=== PATIENT | female | born 1940 | race Hispanic/Latino ===

== ENCOUNTER 2017-04-10 13:15 | Inpatient (IN) | payer MEDICARE, BC ==
[2017-04-10 13:45] VITALS: BMI 42.0
--- NOTE | 2017-04-10 15:27 | ED PDOC ---
Arrival/HPI - General Chief Complaint: Abnormal Skin Integrity Time Seen by Provider: 04/10/17 14:35 Historian: Patient - History of Present Illness Narrative History of Present Illness (Text): 04/10/17 15:23 76yo female with PMHx of Diabetes and hypertension referred to ED for left lower leg infection/non healing wound x 2weeks. States she saw her PMD on Thursday and was given antibiotics for the infection. She has been on the antibiotics without relieve. She was told by Dr. Littlejohn to come to the ED. She states the wound is worse today. She denies fever, chills, chest pain SOB, diaphoresis, calf pain, any other complaint. She notes 2negative doppler US. The last one with end of last year. Past Medical History - Provider Review Nursing Documentation Reviewed: Yes - Tetanus Immunization Tetanus Immunization: Unknown - Reproductive Menopause: Yes - Cardiac Hx Congestive Heart Failure: (pt denies) Hx Hypertension: Yes - Neurological Hx Neurological Disorder: (bilateral foot neuropathy) - HEENT Hx HEENT Disorder: (L Retinopathy) - Renal Hx Renal Disorder: (renal insuficiency) - Endocrine/Metabolic Hx Diabetes Mellitus Type 2: Yes - Integumentary Other/Comment: dry skin and slight redness ble - Musculoskeletal/Rheumatological Hx Falls: No Hx Unsteady Gait: Yes (uses a rollator) - Gastrointestinal Hx Gastrointestinal Disorders: (obese) Other/Comment: vomits late in the day at times - Genitourinary/Gynecological Hx Incontinence: Yes (urgency) - Psychiatric Hx Depression: No Hx Emotional Abuse: No Hx Physical Abuse: No Hx Substance Use: No - Past Surgical History Past Surgical History: No Previous - Surgical History Hx Musculoskeletal Surgery: Yes (R breast lumpectomy [facility]) - Anesthesia Hx Anesthesia: Yes Hx Anesthesia Reactions: No Hx Malignant Hyperthermia: No - Suicidal Assessment Feels Threatened In Home Enviroment: No Family/Social History - Physician Review Nursing Documentation Reviewed: Yes Family/Social History: Unknown Family HX Smoking Status: Never Smoked Hx Alcohol Use: No Hx Substance Use: No Allergies/Home Meds Allergies/Adverse Reactions: Allergies clindamycin Allergy (Verified 04/10/17 13:44) RASH Penicillins Allergy (Verified 04/10/17 13:44) ANAPHYLAXIS Home Medications: Home Meds Medication Instructions Recorded Confirmed Amitriptyline HCl 25 mg PO HS 04/10/17 04/10/17 Calcium Citrate/Magnesium/D3 1 tab PO BID 04/10/17 04/10/17 [Calcium Citrate Chewable Wafer] Carvedilol [Coreg CR] 40 mg PO DAILY 04/10/17 04/10/17 Doxazosin Mesylate [Doxazosin 2 mg PO HS 04/10/17 04/10/17 Mesylate] Febuxostat [Uloric] 40 mg PO DAILY 04/10/17 04/10/17 Gabapentin [Neurontin] 300 mg PO HS 04/10/17 04/10/17 Linagliptin [Tradjenta] 5 mg PO DAILY 04/10/17 04/10/17 Metformin ER [Glucophage XR] 750 mg PO DAILY 04/10/17 04/10/17 Multivitamin Therapeutic Tab 1 tab PO BID 04/10/17 04/10/17 [Thera Tab] Tramadol HCl/Acetaminophen 37.5 tab PO BID 04/10/17 04/10/17 [Tramadol-Acetaminophn 37.5-325] Valsartan [Diovan] 320 mg PO DAILY 04/10/17 04/10/17 Review of Systems - Physician Review All systems were reviewed & negative as marked: Yes - Review of Systems Constitutional: Normal Eyes: Normal ENT: Normal Respiratory: Normal Cardiovascular: Normal Gastrointestinal: Normal Genitourinary Female: Normal Musculoskeletal: Normal Skin: Cellulitis (Left lower leg) Neurological: Normal Endocrine: Normal Hemo/Lymphatic: Normal Psychiatric: Normal Physical Exam Vital Signs Reviewed: Yes Vital Signs Temp Pulse Resp BP Pulse Ox 04/10/17 19:00 77 18 140/59 L 96 04/10/17 17:05 71 18 143/61 95 04/10/17 13:47 98.3 F 86 18 145/59 L 96 Temperature: Afebrile Blood Pressure: Normal Pulse: Regular Respiratory Rate: Normal Appearance: Positive for: Well-Appearing, Non-Toxic, Comfortable, Other ( Morbidly obese) Pain Distress: None Mental Status: Positive for: Alert and Oriented X 3 - Systems Exam Head: Present: Atraumatic, Normocephalic Pupils: Present: PERRL Extroacular Muscles: Present: EOMI Conjunctiva: Present: Normal Mouth: Present: Moist Mucous Membranes Neck: Present: Normal Range of Motion Respiratory/Chest: Present: Clear to Auscultation, Good Air Exchange. No: Respiratory Distress, Accessory Muscle Use Cardiovascular: Present: Regular Rate and Rhythm, Normal S1, S2. No: Murmurs Abdomen: Present: Normal Bowel Sounds. No: Tenderness, Distention, Peritoneal Signs Back: Present: Normal Inspection Upper Extremity: Present: Normal Inspection. No: Cyanosis, Edema Lower Extremity: Present: Edema (4+ bipedal edema), Normal ROM, Tenderness ( Left lower leg), Erythema (Left lower leg), Temperature Abnormalties (Left lower leg), Other (Circular wound noted with central area of hypopigmentation and surrounding erythema). No: CALF TENDERNESS, NORMAL PULSES (DEcrease Left lower leg) Neurological: Present: GCS=15, CN II-XII Intact, Speech Normal Skin: Present: Warm, Dry, Normal Color. No: Rashes Psychiatric: Present: Alert, Oriented x 3, Normal Insight, Normal Concentration Medical Decision Making ED Course and Treatment: 04/10/17 16:05 Pt in ED for stated history. she have history of hypertension and diabetes. She failed outpt abx and will be admitted for IV abx. EKG NSR with RBBB @65bpm CXR NAD Case was DW Dr. Littlejohn who referred pt to the ED and pt was admitted. He requested Fransico Romero and Genoveva consult. Labs pending. Vanco will be ordered. - Lab Interpretations Lab Results: 04/10/17 15:08 04/10/17 15:08 Lab Results 04/10/17 15:08: PT 12.7 H, INR 1.11 H, APTT 30.6 04/10/17 15:08: Sodium 138, Potassium 4.4, Chloride 105, Carbon Dioxide 23, Anion Gap 15, BUN 49 H, Creatinine 2.2 H, Est GFR ( Amer) 26, Est GFR ( Non-Af Amer) 22, Random Glucose 138 H, Calcium 9.3, Total Bilirubin 0.7, AST 20 , ALT 30, Alkaline Phosphatase 85, Total Protein 6.4, Albumin 3.7, Globulin 2.7 , Albumin/Globulin Ratio 1.4 04/10/17 15:08: WBC 10.6, RBC 3.27 L, Hgb 10.1 L, Hct 30.5 L, MCV 93.3, MCH 30.9 , MCHC 33.1, RDW 13.5, Plt Count 216, MPV 9.6, Gran % 84.3 H, Lymph % (Auto) 7.7 L, Mcdonough % (Auto) 5.2, Eos % (Auto) 2.7, Baso % (Auto) 0.1, Gran # 8.94 H, Lymph # 0.8 L, Mcdonough # 0.6, Eos # 0.3, Baso # 0.01 - Medication Orders Current Medication Orders: Amitriptyline HCl (Elavil) 25 mg PO HS [facility] Last Admin: 04/10/17 23:47 Dose: 25 mg Doxazosin Mesylate (Cardura) 2 mg PO HS [facility] Last Admin: 04/10/17 23:47 Dose: 2 mg Gabapentin (Neurontin) 300 mg PO HS [facility] PRN Reason: Protocol Last Admin: 04/10/17 23:47 Dose: 300 mg Behavioural Document 04/10/17 23:47 [facility] (Rec: 04/10/17 23:47 [id number]) Maintenance Maintenance Dose Yes Re-Assess: Reassess Psych Meds Document 04/11/17 00:47 [facility] (Rec: 04/11/17 00:59 [id number]) Reassess Psych Med Effective Linezolid (Zyvox 600mg/300ml D5w) 600 mg in 300 mls @ 200 mls/hr IVPB Q12 NONI PRN Reason: Protocol Stop: 04/17/17 22:01 Last Admin: 04/10/17 23:50 Dose: 200 mls/hr eMAR Start Stop Document 04/10/17 23:50 [facility] (Rec: 04/10/17 23:51 [id number]) Intravenous Solution Start Date 04/10/17 Start Time 23:50 End Date 04/11/17 End time 01:20 Total Infusion Time 90 Insulin Human Regular (Humulin R Low) 0 units SC ACHS NONI PRN Reason: Protocol Metformin HCl (Glucophage Xr) 750 mg PO DAILY [facility] Multivitamins (Thera Tab) 1 tab PO BID [facility] Non-Formulary Medication (Calcium Citrate/Magnesium/D3 [Calcium Citrate Chewable Wafer]) 1 tab PO BID NONI Non-Formulary Medication (Carvedilol [Coreg Cr]) 40 mg PO DAILY NONI Non-Formulary Medication (Febuxostat [Uloric]) 40 mg PO DAILY [facility] Tramadol/Acetaminophen (Ultracet 37.5/325 Mg) 37.5 tab PO BID NONI Valsartan (Diovan) 320 mg PO DAILY NONI Discontinued Medications Vancomycin HCl (Vancomycin 1gm) 1 gm in 250 mls @ 167 mls/hr IVPB STAT STA PRN Reason: Protocol Stop: 04/10/17 17:36 Last Admin: 04/10/17 16:39 Dose: 167 mls/hr eMAR Start Stop Document 04/10/17 16:39 RG (Rec: 04/10/17 16:39 [id number]) Intravenous Solution Start Date 04/10/17 Start Time 16:39 Disposition/Present on Arrival - Present on Arrival Any Indicators Present on Arrival: No History of DVT/PE: No History of Uncontrolled Diabetes: Yes Urinary Catheter: Yes (inserted in er) History of Decub. Ulcer: Yes History Surgical Site Infection Following: None - Disposition Have Diagnosis and Disposition been Completed?: Yes Diagnosis: Cellulitis of leg Disposition: HOSPITALIZED Disposition Time: 15:30 Patient Problems: Current Active Problems Problem Status Onset Cellulitis of leg Acute Condition: FAIR
[2017-04-10 15:35] LABS: BASO # 0.01 K/mm3 (0.0-2.0); BASO % 0.1 % (0.0-3.0); EOS # 0.3 (0.0-0.7); EOS % 2.7 % (1.5-5.0); GRAN # 8.94 (1.4-6.5); GRAN % 84.3 % (50.0-68.0); HEMOGLOBIN 10.1 g/dL (12.0-16.0); LYMPH # 0.8 (1.2-3.4); LYMPH % 7.7 % (22.0-35.0); MEAN CELL VOLUME 93.3 fl (80.0-105.0); MEAN CORPUSCULAR HEMOGLOBIN 30.9 pg (25.0-35.0); MEAN CORPUSCULAR HGB CONC 33.1 g/dl (31.0-37.0); MEAN PLATELET VOLUME 9.6 fl (7.0-11.0); MONO # 0.6 (0.1-0.6); MONO % 5.2 % (1.0-6.0); RBC 3.27 10^6/uL (3.5-6.1); RED CELL DISTRIBUTION WIDTH 13.5 % (11.5-14.5); WHITE BLOOD COUNT 10.6 10^3/ul (4.5-11.0)
[2017-04-10 15:46] LABS: ALB/GLOB RATIO 1.4 (1.1-1.8); ALBUMIN 3.7 g/dL (3.0-4.8); CALCIUM 9.3 mg/dL (8.4-10.5)
[2017-04-10 15:47] LABS: INR 1.11 (0.93-1.08); PARTIAL THROMBOPLASTIN TIME 30.6 Seconds (25.1-36.5); PROTHROMBIN TIME 12.7 SECONDS (9.4-12.5)
[2017-04-10] MEDS ORDERED: Vancomycin 1gm in NS 250ml 1 GM/250 ML BAG IVPB STA (16:07)
--- NOTE | 2017-04-10 17:41 | RAD ---
HISTORY: Admission COMPARISON: 05/25/2014 FINDINGS: LUNGS: No active pulmonary disease. PLEURA: No significant pleural effusion identified, no pneumothorax apparent. CARDIOVASCULAR: No radiographic findings to suggest acute or significant cardiovascular disease. OSSEOUS STRUCTURES: No significant abnormalities. VISUALIZED UPPER ABDOMEN: Normal. OTHER FINDINGS: None. IMPRESSION: No active disease. No significant interval change compared to the prior examination(s).
--- NOTE | 2017-04-10 19:55 | CARD ---
APPROVED REPORT EKG Measurement Heart [id number] <Conclusion> Normal sinus rhythm Right bundle branch block Inferior infarct, age undetermined T wave abnormality, consider lateral ischemia Abnormal ECG
[2017-04-10] MEDS: Linezolid 600 mg in D5W 300 ml 600 MG/300 ML BAG IVPB SCH (23:50)
[2017-04-11 07:33] LABS: MEAN CELL VOLUME 92.6 fl (80.0-105.0); MEAN CORPUSCULAR HEMOGLOBIN 30.3 pg (25.0-35.0); MEAN CORPUSCULAR HGB CONC 32.7 g/dl (31.0-37.0); MEAN PLATELET VOLUME 9.5 fl (7.0-11.0); RBC 2.97 10^6/uL (3.5-6.1); RED CELL DISTRIBUTION WIDTH 13.5 % (11.5-14.5); WHITE BLOOD COUNT 7.1 10^3/ul (4.5-11.0)
[2017-04-11 07:41] LABS: ALB/GLOB RATIO 1.3 (1.1-1.8); ALBUMIN 2.9 g/dL (3.0-4.8)
[2017-04-11] MEDS: Insulin Reg-LOW-Coverage SC SCH ×4 (08:00→22:06)
[2017-04-11 09:06] LABS: IRON 21 ug/dL (45-180)
[2017-04-11 09:16] LABS: TOTAL IRON BINDING CAPACITY 218 ug/dL (265-497)
[2017-04-11 09:21] LABS: % IRON SATURATION 10 % (20-55)
[2017-04-11 09:24] LABS: T4 5.4 ug/dL (5.5-11.0)
[2017-04-11] MEDS ORDERED: Non Formulary Medication (Febuxostat [Uloric] 40 MG) PO SCH ×2 (10:00→17:13)
[2017-04-11] MEDS ORDERED: Non Formulary Medication (Carvedilol [Coreg Cr] 40 MG) PO SCH ×2 (10:00→17:11)
[2017-04-11] MEDS ORDERED: TraMADol/Apap 37.5/325 mg Tab PO SCH (10:00)
[2017-04-11] MEDS: Multivitamin Therapeutic Tab PO SCH (10:02)
[2017-04-11] MEDS: Linezolid 600 mg in D5W 300 ml 600 MG/300 ML BAG IVPB SCH ×2 (10:02→22:11)
--- NOTE | 2017-04-11 11:27 | HP ---
LOCATION: The patient is currently admitted from the ER, she is in room 570. HISTORY OF PRESENT ILLNESS: This is a 76-year-old female with past medical history of diabetes and hypertension, who was seen by us a few days ago for followup, followed in the office as a second visit for evaluation of anemia and monoclonal gammopathy, and was referred to the emergency room for left lower leg infection that has been nonhealing for 2 weeks despite getting oral antibiotics prescribed by her PMD. The patient has been on antibiotics without much relief and then she came to see us. We that she should go to the ER as it may need to be investigated and patient may need IV antibiotics and investigation for even osteomyelitis as the wound could extend into the bone. Patient states that wound is worse today. Denies any fevers, chills, chest pain, shortness of breath, diaphoresis, calf pain. Patient has had 2 negative ultrasounds and Doppler in the doctor's office in the last year. PAST MEDICAL HISTORY: Significant for hypertension. Patient has had worsening bilateral foot neuropathy. She has retinopathy. Patient has mild renal insufficiency, followed up with Dr. Bateman, history of diabetes mellitus. Patient's gait is unsteady, uses a rollator in ambulation. Patient is obese. She vomits late in the day at least 3 to 4 times a day. She has urgency and urinary incontinence. Patient had a right breast lumpectomy in the past for benign disease. SOCIAL HISTORY: Patient is a nonsmoker, nondrinker. She is a nonalcoholic, and no history of substance abuse. ALLERGIES: SHE HAS ALLERGIES TO CLINDAMYCIN AND PENICILLIN, THUS SHE HAS HAD THE UNASYN. CURRENT MEDICATIONS: Reviewed. She is on Tekturna/hydrochlorothiazide 100/12.5 mg one tablet daily, amlodipine 10 mg daily, aspirin 81 mg at bedtime, carvedilol mg daily, doxazosin 4 mg at bedtime, insulin aspart NovoLog Mix 70/30 of 20 units subcu daily twice a day, Simcor 500/20 one tablet at bedtime, Xanax 0.25 mg p.o. p.r.n., Zyrtec 10 mg p.o. p.r.n. She is on vitamin D2 at 50,000 units once a week. She is on Victoza for diabetes, which she is currently not taking. She is on Centrum Silver, omega fish oil, valsartan 80 mg a day. REVIEW OF SYSTEMS: All 12-system review was done. All of them were negative except for what is mentioned in the HPI. PHYSICAL EXAMINATION: VITAL SIGNS: Stable. T-max is 98.3, pulse is 86, respirations 18, blood pressure is 145/59, pulse ox is 96%. HEENT: Head is normocephalic and atraumatic. Conjunctivae pale. Sclerae is anicteric. Pupils are equally reactive to light and accommodation. Examination of the oropharynx, there is no oropharyngeal lesions. Tongue is moist. No ulcerations are noted. No evidence of any thrush or any other fungal infection noted. NECK: Supple. There is no adenopathy. Range of motion is normal. There is no jugular venous distention. LUNGS: Clear to percussion and auscultation. Good air exchange. The patient is not in any respiratory distress or use of accessory muscles is noted. CARDIOVASCULAR: Reveals PMI to be in the fifth intercostal space inside the midclavicular line. S1 and S2 are normal. No gallop or murmur is heard. BACK: Examination of the back reveals it to be normal on inspection. EXTREMITIES: Upper and lower extremities; reveal no cyanosis, clubbing or edema in the upper extremity. Examination of the lower extremities reveals 4+ bipedal edema, normal range of motion. There is tenderness in the left lower leg with erythema. Temperature left lower leg with wound noted with of hyperpigmentation, surrounding erythema measuring about 2.5 cm. No calf tenderness is noted. Normal pulses with decreased pulse on the left leg. Calf muscles did not reveal any signs of soreness or tenderness. NEUROLOGIC: Reveals higher functions to be normal. No focal deficits are noted. SKIN: Skin turgor is decreased. No skin lesions are noted except for the ulceration seen in the left lower extremity. PSYCHIATRIC: Patient's affect is normal, and patient is alert and oriented x3. LABORATORY DATA: Patient's labs were reviewed. White count is 10.5, hemoglobin 10.1, hematocrit 30.5, platelet count of 216,000. Sodium is 138, K is 4.4, chloride is 104, CO2 is 23. BUN is 49, creatinine is 2.2. Blood sugar is 133. ASSESSMENT, NOTES AND PLAN: A 76-year-old female with diabetes, monoclonal gammopathy, anemia in the past, being worked up, is admitted to the hospital with progressive worsening and nonhealing left lower extremity ulcer in combination with diabetes; one has to worry if that is as well. Patient has failed out p.o. antibiotics and will need IV antibiotics. In addition to this, patient would have to be checked up for both arterial and venous insufficiency as to what the causation of the ulcer is, and patient may need ankle-brachial index as well. Patient is going to be seen in consultation with Dr. Bateman, the rn building, by Dr. Tomas, the solderer assembly repair, and Dr. Yoon and Dr. Pope from the Infections Disease point of view. Patient will need a triphasic bone scan, and/or an MRI symptoms resolve in a more meaningful way. Plan, as discussed, we are going to wait for the inputs from all the consultants. In the meantime, patient has been started on IV antibiotics. As per Infectious Disease, patient is going to be treated with IV Zyvox for they are waiting for other tests to come thorough. Patient will receive one dose of vancomycin in the emergency room of 1 g. Continue to monitor the labs and ordering a bone scan as well and arterial studies as well. This is a medically necessary and appropriate visit for this patient with multiple comorbid medical issues. Sumanth Littlejohn MD
[2017-04-11 12:09] LABS: FERRITIN 90.4 ng/mL
--- NOTE | 2017-04-11 12:13 | CON ---
DATE: 04/11/2017 The patient [address] for Dr. Clovis Watters FAMILY PHYSICIAN: Vania Kang MD REFERRING PHYSICIAN: Clovis Watters MD DATE OF ADMISSION TO THE HOSPITAL: 04/10/2017. DATE OF CONSULTATION: 04/11/2017. REASON FOR CONSULTATION: Evaluation of the patient unknown to me, but known to Dr. Bateman from office followup who presents with an elevated BUN and creatinine in the setting of cellulitis of her lower extremity and the setting of chronic lymphedema. HISTORY OF PRESENT ILLNESS: The patient is a pleasant 76-year-old white female with a long history of diabetes mellitus and hypertension, history of lower extremity lymphedema who uses diuretics on and off, none recently. History of possible diabetic neuropathy and retinopathy. The patient states that her baseline creatinine recently has been in the 1.7 range. The patient does have mild proteinuria, so quite possibly she has underlying diabetic nephropathy. The patient has a history of anemia, followed by Dr. Littlejohn. Echocardiograms done in 2014 showed an ejection fraction in the 55% range with LVH and mild valvular heart disease, MR/TR/AI. The patient was seen in the outpatient setting for evaluation of increasing redness and warmth of her lower extremity. She does have a small wound over her left leg area. The patient was felt to have cellulitis, she was treated with oral antibiotic therapy and she had no improvement. She was sent to the hospital for IV antibiotic therapy. She was noted to have a BUN of 49 on admission with a creatinine of 2.2. These are slightly above her recent outpatient levels. The patient states that when Dr. Bateman does her blood work in the office, her creatinine is in the 1.7 to 1.8 range. Of note, the patient remains on metformin. We are asked to evaluate the patient for the elevated BUN and creatinine above her baseline levels. 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 MEDICATIONS AT HOME: Include that of Diovan, tramadol with Tylenol, multivitamins, metformin, Tradjenta, Neurontin, Uloric, Cardura, Coreg, calcium citrate, and amitriptyline. ALLERGIES: THE PATIENT IS ALLERGIC TO CLINDAMYCIN AND PENICILLIN. CURRENT MEDICATIONS: In hospital include that of Cardura, Coreg, Diovan, Elavil, Uloric, metformin, multivitamins with calcium, sliding scale insulin, Neurontin, Ultracet, and Zyvox. SOCIAL HISTORY: No history of cigarette smoking. No history of alcohol use. FAMILY HISTORY: Mother at the age of 93 from old age. Father at the age of 76 from heart disease. There is a family history of hypertension. No family history of diabetes. REVIEW OF SYSTEMS: GENERAL: The patient states appetite and weight have been stable. ENT: Denies any hearing or visual problems with the exception of diabetic retinopathy. PULMONARY: No shortness of breath. No COPD. No asthma, bronchitis or emphysema. CARDIAC: No history of known coronary artery disease. GASTROINTESTINAL: No nausea, vomiting, diarrhea, constipation or abdominal pain. GENITOURINARY: History of chronic kidney disease stage II with a baseline creatinine of 1.7. No history of urinary tract infection. GYNECOLOGIC: Postmenopausal. ENDOCRINE: History of diabetes with complications. MUSCULOSKELETAL: No issues other than mild low back pain. NEUROLOGIC: No past history of CVA, TIA, seizures or syncope. HEME: Positive history of anemia followed by Hematology/Oncology. PSYCHOLOGIC: Psychiatric history is negative. PHYSICAL EXAMINATION: GENERAL: The patient is currently seen on . She is entirely comfortable lying supine in bed and IV antibiotics are infusing. VITAL SIGNS: Blood pressure of 140/59, temperature of 98.3, and respiratory rate of 18 with a pulse of 77. HEENT: Exam shows her be normocephalic and atraumatic. Conjunctivae are pale. Sclera are nonicteric. Pupils are equal, round and reactive to light and accommodation. Extraocular muscles are intact. Posterior pharynx is normal. NECK: Supple. No neck vein distention and no thyromegaly. No lymphadenopathy. No bruits. CHEST: Clear to auscultation and percussion. No rales and no rhonchi or wheezing. CARDIOVASCULAR: Shows a regular rate and rhythm with no audible murmurs. No S3, no S4 and no rub. History of MR/TR/AI. GASTROINTESTINAL: Abdomen is soft. Bowel sounds are normal. No rebound and no guarding or masses. BACK: No CVAT. No spinal tenderness. EXTREMITIES: Show chronic lymphedema of her lower extremities with increased warmth and erythema. She has a wound over her left lateral thigh area. No ulceration. Diminished lower extremity pulses secondary to edema. No cyanosis or clubbing. NEUROLOGIC: Shows her to be alert and oriented x3 with no gross focal motor or sensory deficits noted. LABORATORY DATA AND IMAGING STUDIES: Admitting chest x-ray: No acute pulmonary disease. Admitting EKG showed a right bundle-branch block with a normal sinus rhythm. Ultrasound done in 2014 showed normal kidneys. Labs: CBC; white blood cell count is 7.1, hemoglobin down to 9.0, and platelet count is 203,000. Chemistries: Normal electrolytes. BUN of 49 down to 41 today. Creatinine is 2.2 down to 2.1. These values are within her baseline range dating back to 2014, but the patient states that in the office she has had creatinines as low as 1.7. Glucose is 126. Calcium is 9.0. Liver enzymes are normal. Urinalysis is pending. Last urine from 2014 showed proteinuria. She did have a 24 hour urine done in 2011 which showed a creatinine clearance of 40 mL per minute and 374 mg of protein in the urine. Microbiology; no reports as of yet. ASSESSMENT: 1. Acute renal failure superimposed on chronic kidney disease stage III, suspect. This is quite possibly in the setting of diabetic nephropathy given a long history of diabetes and hypertension. The patient apparently has mild proteinuria, likely secondary to diabetes. The patient states that she very infrequently uses diuretic therapy because of her elevated BUN and creatinine. She had present and does not want to start diuretic therapy as she states that the amount of edema in her lower extremity is consistent what she has had over the last several years. Renal ultrasounds were done several years ago. If her BUN and creatinine stay in this range, I did not need to repeat these. I will, however, obtain a 24 urine for creatinine clearance and protein to reestablish a baseline for her. 2. Lower extremity cellulitis, bilateral. The patient will continue on intravenous antibiotic therapy, as she did not respond to oral antibiotic therapy. 3. Chronic lower extremity lymphedema. The patient will elevate her legs. She has successfully use compression stockings in the past. She would rather not use diuretic therapy as in the past, this has increased her BUN and creatinine. 4. History of anemia in the past, the patient was iron deficient. I will repeat her iron levels, B12, folate. The patient will receive supplements accordingly. In all likelihood, she has anemia secondary to chronic kidney disease with perhaps a mild contribution from iron deficiency. 5. Possible history of diabetic nephropathy, neuropathy and retinopathy. 6. 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 PLAN: 1. In light of her elevated creatinine, I will discontinue metformin, I discussed this with the patient. She remains on sliding scale insulin, so she should have her sugars covered. 2. As long as her creatinine remains stable, let her continue angiotensin receptor crissy therapy. 3. Obtain 24 years for creatinine clearance and protein. 4. At present, we will try and hold diuretic therapy for edema of her lower extremity, increases no choice but to resume diuretic therapy which she has used on an as-needed basis over the years. 5. Anemia workup sent. 6. Leg elevation and perhaps leg compression with support stockings once the cellulitis, erythema and warmth improved. 7. Monitor accurate Intake and output and daily weights. 8. Monitor daily labs. Thank you for letting me partake and share in the care of your patient. Dictation by Dr. Jair Williamson. Jair Williamson MD
[2017-04-11 12:40] LABS: FOLATE > 20.0 ng/mL
[2017-04-11] MEDS: MAGNESIUM PO SCH ×2 (13:31→18:20)
[2017-04-11] MEDS: CALCIUM CITRATE PO SCH ×2 (13:31→18:20)
[2017-04-11] MEDS: D3 PO SCH ×2 (13:31→18:20)
--- NOTE | 2017-04-11 14:58 | US ---
HISTORY: Leg pain and swelling. Evaluate for DVT PHYSICIAN(S): Jayson Anne MD. TECHNIQUE: Duplex sonography and color-flow Doppler with graded compression were used to evaluate the deep venous systems of both lower extremities. The exam is limited by edema and body habitus. FINDINGS: The visualized deep venous systems of both lower extremities are sonographically normal and compressible. Normal wave forms and augmentation are seen. There is no sonographic evidence for deep venous thrombosis in the visualized segments of both lower extremities. IMPRESSION: No sonographic evidence for deep venous thrombosis in the visualized segments of both lower extremities. Limited study
--- NOTE | 2017-04-11 15:42 | RAD ---
PROCEDURE: Radiographs of the left tibia and fibula. HISTORY: left diabetic leg ulcer COMPARISON: None available. TECHNIQUE: Frontal and lateral views obtained. FINDINGS: BONES: No fracture or destructive lesion. JOINT SPACES: Unremarkable. OTHER FINDINGS: None. IMPRESSION: Unremarkable radiographs of the left tibia and fibula.
[2017-04-11] MEDS ORDERED: POLYETHYLENE GLYCOL 3350 17 GM/Dose PACKET PO PRN (18:45)
[2017-04-11] MEDS ORDERED: TraMADol/Apap 37.5/325 mg Tab PO PRN (19:29)
[2017-04-11 20:12] LABS: URINE BILIRUBIN NEGATIVE (NEGATIVE); URINE BLOOD NEGATIVE (NEGATIVE); URINE GLUCOSE (UA) NEGATIVE (NEGATIVE); URINE LEUKOCYTE ESTERASE NEGATIVE Leu/uL (NEGATIVE); URINE NITRATE NEGATIVE (NEGATIVE); URINE PROTEIN NEGATIVE mg/dL (<30 mg/dL); URINE UROBILINOGEN 0.2 E.U./dL (<1 E.U./dL)
[2017-04-11 20:15] LABS: URINE APPEARANCE CLEAR (CLEAR); URINE COLOR YELLOW (YELLOW)
[2017-04-11] MEDS: Meropenem 500 MG in Sodium Chloride 0.9% 100 ML IVPB SCH (22:12)
--- NOTE | 2017-04-11 22:51 | CON ---
DATE: HISTORY OF PRESENT ILLNESS: A 76-year-old female seen at bedside for consultation, evaluation and management of bilateral lower leg cellulitis with the wound on her left leg x2 weeks. The patient failed oral antibiotic therapy by her primary care doctor and was told to come to the hospital for admittance for IV antibiotics. PAST MEDICAL HISTORY: Significant for type 2 diabetes with peripheral vascular disease, unsteady gait, urinary incontinence and peripheral neuropathy, essential hypertension. PAST SURGICAL HISTORY: Includes lumpectomy to the left breast. SOCIAL HISTORY: The patient is . The patient never smoked. Does not report any alcohol usage and no illicit drug use. ALLERGIES: INCLUDE PENICILLIN AND CLINDAMYCIN. HOME MEDICATIONS: Include tramadol, metformin, Tradjenta, Neurontin, Uloric, Coreg, doxazosin, mesylate, and amitriptyline. PHYSICAL EXAMINATION: VITAL SIGNS: Revealed temperature of 99, pulse rate of 74, blood pressure of 137/38, respiratory rate of 20. EXTREMITIES: Nonpalpable pedal pulses noted bilaterally. +2 pitting edema noted bilaterally. The patient was unable to detect 5.07 g monofilament wire testing bilaterally. Both lower legs present with edema and erythema and increased temperature gradient. There is a superficial unstageable ulceration located at the lateral aspect of the left lower leg that remains granular with minimal serous drainage. The wound does not probe to tendon or bone. There is no purulence to suggest underlying abscess formation. There is no pain upon palpation. LABORATORY FINDINGS: Reveal a white count of 7.1 down from 10.6, hemoglobin of 9, hematocrit of 27.5, platelet count of 203. Her ESR is elevated at 66. There is no microbiology report noted. There is no arterial or venous Doppler noted. ASSESSMENT: Nonstageable diabetic ulceration to the left lower leg with bilateral lower extremity cellulitis. PLAN: The patient's wound was cultured and sent for sensitivities. Recommend Infectious Disease consult to evaluate culture results and prescribe accordingly. The patient's wound was cleansed with normal sterile saline. We will apply Maxorb and a dry sterile dressing daily. The patient was placed on vanco and Zyvox empirically. We will await culture results. We will order venous Dopplers to rule out the presence of DVT and arterial Dopplers to ascertain lower extremity perfusion. It was noted on the original note upon ER admission that these tests were done at the end of 02/2017; however, there is no record of them, so we will order them again. We will also order tib-fib x-rays to rule out any osseous changes underlying the ulceration site. The patient will be seen and followed daily. Jorge Metz DPM
--- NOTE | 2017-04-12 01:46 | CON ---
DATE: 04/11/2017 LOCATION: The patient is seen earlier today in room 570, bed 1. CHIEF COMPLAINT: Lower extremity erythema times several days. HISTORY OF PRESENT ILLNESS: This is a 76-year-old female with morbid obesity with BMI of 45 with diabetes mellitus, hypertension with lower extremity edema and also with past medical history significant for high cholesterol, history of ESBL E. Coli in the urine, history of the lower extremity cellulitis, who was admitted through the Emergency Room with a chief complaint of lower extremity erythema and edema times several days duration. Patient with history of anemia and monoclonal gammopathy. REVIEW OF SYSTEMS: Reveals the patient had no fevers and no chills. No chest pain. No abdominal pain, diarrhea or constipation. No headaches or blurred vision. PAST MEDICAL HISTORY: Significant for diabetes mellitus with retinopathy and neuropathy, hypertension, hyperlipidemia and high cholesterol, renal disease, history of ESBL E. Coli urinary tract infection. The patient also had a history of E. Coli bacteremia. E. Coli bacteremia was pansensitive; however, the patient did have in 2013, E. Coli that was resistant. ALLERGIES: PATIENT IS ALLERGIC TO CLINDAMYCIN AND PENICILLIN. MEDICATIONS: At home, reveals Diovan, Glucophage, Neurontin, carvedilol, calcium and amitriptyline. PHYSICAL EXAMINATION: VITAL SIGNS: Temperature is 98, blood pressure is 140/30, respiratory rate 20, heart rate of 74. HEENT: Unremarkable. NECK: Supple. LUNGS: Have decreased breath sounds. HEART: Normal S1, S2. ABDOMEN: Soft, nontender. EXTREMITIES: Examination of the legs reveal erythema bilaterally; however, the left leg has significant erythema and an ulcer on lateral aspect of the left leg. LABORATORY DATA: Reveals a white count of 7.1, hemoglobin of 9. Coagulation is noted. Chemistries reveals the patient to have a creatinine of 2.1. The patient's creatinine in the past has been 2.9, 1.9, 1.7, 3.1. The patient did have an x-ray of the chest and shows no pulmonary disease. ASSESSMENT AND PLAN: This is a 76-year-old female with morbid obesity with BMI of 42, hypertension, diabetes, retinopathy and high cholesterol with a history of Escherichia coli bacteremia, Escherichia coli urinary tract infection, anemia, monoclonal gammopathy. 1. Left leg cellulitis with leg ulcer and a patient who is ALLERGIC TO PENICILLIN. Currently, will treat the patient with linezolid and meropenem in a diabetic. The patient with renal insufficiency, PENICILLIN ALLERGY AND CLINDAMYCIN. We will follow closely with you. Case discussed with Podiatry, possibility of underlying osteomyelitis should be worked up. Rinku Yoon MD
[2017-04-12 07:31] LABS: HEMOGLOBIN 9.2 g/dL (12.0-16.0); MEAN CORPUSCULAR HEMOGLOBIN 30.9 pg (25.0-35.0); MEAN CORPUSCULAR HGB CONC 32.5 g/dl (31.0-37.0); MEAN PLATELET VOLUME 10.2 fl (7.0-11.0); RBC 2.98 10^6/uL (3.5-6.1); WHITE BLOOD COUNT 5.6 10^3/ul (4.5-11.0)
[2017-04-12] MEDS: Insulin Reg-LOW-Coverage SC SCH ×4 (08:07→23:16)
[2017-04-12 08:13] LABS: ALB/GLOB RATIO 1.1 (1.1-1.8); ALBUMIN 2.8 g/dL (3.0-4.8); MAGNESIUM 2.2 mg/dL (1.7-2.2); URIC ACID 4.9 mg/dL (2.5-6.2)
--- NOTE | 2017-04-12 09:20 | PN ---
DATE: SUBJECTIVE: The patient is currently seen on 5R. She is entirely comfortable lying in bed. No significant increase in her leg edema with perhaps mild decrease in erythema. She is being treated with IV antibiotic therapy for cellulitis of her lower extremity. Her creatinine level has improved from 2.2 down to 1.8. The patient is not receiving diuretic therapy. MEDICATIONS: Medication list reviewed. The patient is currently on Cardura, Colace, Diovan, Elavil, metformin was discontinued, Caltrate, insulin, meropenem, MiraLax, Neurontin, multivitamin, Ultracet p.r.n., and Zyvox. OBJECTIVE: INTAKE/OUTPUT: Intake charted is 180, output charted as 250. A 24-hour urine is in progress. VITAL SIGNS: Blood pressure 140/53, temperature 98.5, respiratory rate 18 with a pulse of 60. Oxygen saturation is 97%. HEENT: Shows her to be normocephalic, atraumatic. Conjunctivae are pale. Sclerae are nonicteric. NECK: Supple. No neck vein distention. CHEST: Clear to auscultation and percussion. No rales or rhonchi or wheezing. CARDIOVASCULAR: Shows a regular rate and rhythm with MR/TR/AI. No S3, no S4. No rub. ABDOMEN: Soft. Bowel sounds normal. No rebound or guarding or masses. EXTREMITIES: Show chronic lymphedema with decreased erythema and decreased warmth of her lower extremities bilaterally. She has a dressing over her left lateral lower leg area. Diminished lower extremity pulses secondary to edema. LABORATORY DATA AND IMAGING STUDIES: CBC: White blood cell count down to 5.6, hemoglobin down from 10.1-9.2. Platelet count is 201,000. Chemistry showed normal electrolytes. BUN 35 with a creatinine of 1.8. Glucose is 146. Calcium 9, phosphorus 4.5, magnesium level of 2.2. Albumin is low at 2.8. Iron saturations are low at 10%. B12 and folic acid levels are normal. TSH level is normal with a low total T4 level. Microbiology blood cultures are negative at 24 hours. Gram stain and wound culture of her left lower leg is negative at 24 hours. ASSESSMENT: 1. Acute renal failure superimposed on chronic kidney disease stage III. The patient is falling back to her baseline level. Baseline creatinines have been in the 1.7 range. She is down to 1.8. 24-hour urines have been ordered to establish a baseline creatinine clearance. In all likelihood, chronic kidney disease stage III is secondary to diabetes. 2. Bilateral cellulitis, improving. The patient remains on IV antibiotic therapy. Cultures are negative. 3. History of chronic lower extremity lymphedema. The patient will continue leg elevation and when able, she will wear compression stockings. She would like not to use diuretic therapy as she states the edema of her lower extremity is no worse than her baseline. 4. History of anemia in part secondary to chronic kidney disease in part secondary to iron deficiency. I will start the patient on Venofer 200 mg every other day for a total of 1 g. I will check her stools for blood. The patient states she never had a colonoscopy. Hematology is also following the patient for her anemia. 5. Possible history of diabetic nephropathy, neuropathy and retinopathy. 6. History of concentric LVH with mitral regurgitation, tricuspid regurgitation, aortic insufficiency. PLAN 1.. Continue IV antibiotic therapy as ordered. 2. Check stools for blood. 3. Continue IV Venofer therapy to supplement her iron levels. 4. Leg elevation with compression stockings to minimize edema. 5. Check results of 24-hour urine for creatinine clearance and protein. 6. Continue the patient on a renal diet. 7. Continue the patient off metformin. The patient remains on sliding scale insulin. Jair Williamson MD
[2017-04-12] MEDS: COREG 40 MG PO SCH (10:05)
[2017-04-12] MEDS: Multivitamin Therapeutic Tab PO SCH ×2 (10:06→19:35)
[2017-04-12] MEDS: Meropenem 500 MG in Sodium Chloride 0.9% 100 ML IVPB SCH ×2 (10:06→22:13)
[2017-04-12] MEDS: CALCIUM CITRATE PO SCH ×2 (10:07→17:40)
[2017-04-12] MEDS: D3 PO SCH ×2 (10:07→17:40)
[2017-04-12] MEDS: MAGNESIUM PO SCH ×2 (10:07→17:40)
[2017-04-12] MEDS: ULORIC 40MG PO SCH (10:08)
[2017-04-12] MEDS: Linezolid 600 mg in D5W 300 ml 600 MG/300 ML BAG IVPB SCH (10:09)
--- NOTE | 2017-04-12 12:35 | PN ---
DATE: 04/12/2017 SUBJECTIVE: The patient is in bed, in no acute distress, nontoxic. OBJECTIVE: VITAL SIGNS: Temperature is 98, blood pressure is 140/50, respiratory rate of 18. HEENT: Unremarkable. NECK: Supple. LUNGS: Have decreased breath sounds. HEART: Normal S1, S2. ABDOMEN: Soft. LOWER EXTREMITIES: Greatly improved. LABORATORY EXAMINATION: Reveals a white count of 5.6, hemoglobin of 9, and platelets of 201. Chemistries reveal a BUN of 35, creatinine of 1.8. Urinalysis is noted. Microbiology reveals the blood cultures are negative. The leg cultures showed no growth, and the patient's sed rate is 66 and C-reactive protein is greater than 15. Review of orders reveals the patient to be on meropenem and Zyvox. ASSESSMENT AND PLAN: A 76-year-old female with morbid obesity with a body mass index of 42 with diabetes, hypertension, lower extremity edema, high cholesterol, history of urinary tract infection with Escherichia coli, presenting with left leg cellulitis with an ulcer, ALLERGIC TO PENICILLIN, limited options, currently on linezolid and meropenem, and THE PATIENT IS ALLERGIC TO PENICILLIN AND CLINDAMYCIN. We will discontinue the tramadol, serotonin syndrome, drug-drug interaction with Zyvox concerning, and since it was just started yesterday, we will also order a bone scan to rule out osteomyelitis of the left leg because of an elevated sedimentation rate and C-reactive protein. We will follow with you. PHYSICAL EXAMINATION GENERAL: Text. VITAL SIGNS: Text. HEENT: Text. NECK: Text. CARDIOPULMONARY: Text. LUNGS: Text. ABDOMEN: Text. EXTREMITIES: Text. LABORATORY DATA: Text. MEDICATIONS: Text. ASSESSMENT AND PLAN: Text. Rinku Yoon MD
--- NOTE | 2017-04-12 15:38 | CP.PCM.PN ---
<Miah Moses - Last Filed: 04/12/17 15:35> Subjective - Date & Time of Evaluation Date of Evaluation: 04/12/17 Time of Evaluation: 12:00 - Subjective Subjective: Podiatry Progress Note- Dr. Metz 76 y.o female seen at bedside for left leg ulceration and LE cellulitis- resolving. Patient is seen resting comfortably in chair, in NAD and AAOx3. Patient complains of no pain today. She reports that she slept well last night without any acute overnight events. Patient denies n/v/sob/cp/chills/f or d. Patient has no new complaints. Objective - Vital Signs/Intake and Output Vital Signs (last 24 hours): Temp Pulse Resp BP Pulse Ox 98.5 F 60 18 140/53 L 97 04/12/17 08:11 04/12/17 08:11 04/12/17 08:11 04/12/17 08:11 04/12/17 08:11 Intake and Output: 04/12/17 04/12/17 06:59 18:59 Intake Total 300 180 Output Total 250 250 Balance 50 -70 - Medications Medications: Current Medications Amitriptyline HCl (Elavil) 25 mg PO HS [facility] Last Admin: 04/11/17 22:15 Dose: 25 mg Docusate Sodium (Colace) 100 mg PO BID [facility] Last Admin: 04/12/17 10:06 Dose: 100 mg Doxazosin Mesylate (Cardura) 2 mg PO HS [facility] Last Admin: 04/11/17 22:15 Dose: 2 mg Gabapentin (Neurontin) 300 mg PO HS [facility] PRN Reason: Protocol Last Admin: 04/11/17 22:13 Dose: 300 mg Home Med (Home Med) 1 unit PO BID [facility] Last Admin: 04/12/17 10:07 Dose: 1 unit Home Med (Home Med) 40 unit PO DAILY [facility] Last Admin: 04/12/17 10:08 Dose: 40 unit Home Med (Home Med) 40 unit PO DAILY [facility] Last Admin: 04/12/17 10:05 Dose: 40 unit Meropenem 500 mg/ Sodium (Chloride) 100 mls @ 100 mls/hr IVPB Q12 NONI PRN Reason: Protocol Last Admin: 04/12/17 10:06 Dose: 100 mls/hr Iron Sucrose 200 mg/ Sodium (Chloride) 110 mls @ 110 mls/hr IVPB MWF ONE Stop: 04/13/17 10:59 Insulin Human Regular (Humulin R Low) 0 units SC ACHS NONI PRN Reason: Protocol Last Admin: 04/12/17 12:28 Dose: Not Given Linezolid (Zyvox) 600 mg PO BID [facility] PRN Reason: Protocol Stop: 04/21/17 18:01 Multivitamins (Thera Tab) 1 tab PO BID [facility]I Last Admin: 04/12/17 10:06 Dose: 1 tab Polyethylene Glycol (Miralax) 17 gm PO DAILY PRN PRN Reason: Constipation Last Admin: 04/12/17 10:06 Dose: 17 gm Valsartan (Diovan) 320 mg PO DAILY [facility] Last Admin: 04/12/17 10:05 Dose: 320 mg - Labs Labs: 04/12/17 06:30 04/12/17 06:30 PT 12.7 SECONDS (9.4-12.5) H 04/10/17 15:08 INR 1.11 (0.93-1.08) H 04/10/17 15:08 APTT 30.6 Seconds (25.1-36.5) 04/10/17 15:08 - Constitutional Appears: Well, Non-toxic, No Acute Distress - Extremities Exam Additional comments: Vasc: DP and PT unpalable secondary to edema, temperature WNL, capillary refill time < 3 seconds, pitting edema noted to LE Ortho: no pain with palpation to the LE Neuro: gross and protective sensation diminished Derm: Left leg lateral aspect superficial ulceration measuring approximately 1.5 cm x 1 cm with fibrotic base, mild serous drainage, no odor, no purulence, no probe to bone, no undermining or tunneling. Erythema to the LE has improved- resolving. - Neurological Exam Neurological Exam: Alert, Awake, Oriented x3 - Psychiatric Exam Psychiatric exam: Normal Affect, Normal Mood Assessment and Plan - Assessment and Plan (Free Text) Assessment: 76 y.o female seen at bedside for left leg ulceration and LE cellulitis- resolving with LE edema Plan: Patient examined and evaluated Discussed plan in detail with attending Charts, labs, vitals reviewed (afebrile, absent leukocytosis WBC on 04/12/16=5.6 ) L leg ulceration cleansed with saline, maxosorb, dsd and kerlix applied L Tib-fib x-ray ordered to r/o osseous changes. Results- unremarkable Duplex results- No sonographic evidence of DVT of b/l lower extremities Wound culture of L leg- pending C/w current abx regimen Meropenem and Zyvox Will continue to follow while in house <Jorge Metz - Last Filed: 04/14/17 12:11> Objective - Vital Signs/Intake and Output Vital Signs (last 24 hours): Temp Pulse Resp BP Pulse Ox 98.7 F 81 20 167/61 H 96 04/14/17 06:00 04/14/17 06:00 04/14/17 06:00 04/14/17 06:00 04/14/17 06:00 Intake and Output: 04/14/17 04/14/17 06:59 18:59 Intake Total 900 Output Total 600 Balance 300 - Medications Medications: Current Medications Amitriptyline HCl (Elavil) 25 mg PO HS [facility] Last Admin: 04/13/17 22:18 Dose: 25 mg Betamethasone/Clotrimazole (Lotrisone) 0 ml TOP DAILY [facility] Last Admin: 04/14/17 10:36 Dose: 1 units Docusate Sodium (Colace) 100 mg PO BID [facility] Last Admin: 04/14/17 10:49 Dose: Not Given Doxazosin Mesylate (Cardura) 2 mg PO HS [facility] Last Admin: 04/13/17 22:18 Dose: 2 mg Gabapentin (Neurontin) 300 mg PO HS [facility] PRN Reason: Protocol Last Admin: 04/13/17 22:18 Dose: 300 mg Home Med (Home Med) 1 unit PO BID [facility] Last Admin: 04/14/17 10:36 Dose: 1 unit Home Med (Home Med) 40 unit PO DAILY [facility] Last Admin: 04/14/17 10:36 Dose: 40 unit Home Med (Home Med) 40 unit PO DAILY [facility] Last Admin: 04/14/17 10:38 Dose: 40 unit Meropenem 500 mg/ Sodium (Chloride) 100 mls @ 100 mls/hr IVPB Q12 NONI PRN Reason: Protocol Last Admin: 04/14/17 10:34 Dose: 100 mls/hr Insulin Human Regular (Humulin R Low) 0 units SC ACHS NONI PRN Reason: Protocol Last Admin: 04/14/17 08:30 Dose: Not Given Linezolid (Zyvox) 600 mg PO BID NONI PRN Reason: Protocol Stop: 04/21/17 18:01 Last Admin: 04/14/17 10:34 Dose: 600 mg Multivitamins (Thera Tab) 1 tab PO BID [facility] Last Admin: 04/14/17 10:34 Dose: 1 tab Polyethylene Glycol (Miralax) 17 gm PO BID PRN PRN Reason: Constipation Last Admin: 04/12/17 22:14 Dose: 17 gm Silver Sulfadiazine (Silvadene 1% 25 Gm) 0 gm TP DAILY [facility] Last Admin: 04/14/17 10:35 Dose: 25 gm Valsartan (Diovan) 320 mg PO DAILY [facility] Last Admin: 04/14/17 10:34 Dose: 320 mg - Labs Labs: 04/14/17 06:20 04/14/17 06:20 PT 12.7 SECONDS (9.4-12.5) H 04/10/17 15:08 INR 1.11 (0.93-1.08) H 04/10/17 15:08 APTT 30.6 Seconds (25.1-36.5) 04/10/17 15:08 Attending/Attestation - Attestation I have personally seen and examined this patient.: Yes I have fully participated in the care of the patient.: Yes I have reviewed all pertinent clinical information, including history, physical exam and plan: Yes
[2017-04-12 15:54] LABS: URINE CREATININE 49.7 mg/dL
--- NOTE | 2017-04-12 16:42 | CP.PCM.PN ---
Subjective - Date & Time of Evaluation Date of Evaluation: 04/11/17 Time of Evaluation: 18:00 - Subjective Subjective: OCcasional back pain. NO BM in 2 days. ROS: 12 ROS otherwise negative Pain: baseline back pain Objective - Vital Signs/Intake and Output Vital Signs (last 24 hours): Temp Pulse Resp BP Pulse Ox 98.5 F 60 18 140/53 L 97 04/12/17 08:11 04/12/17 08:11 04/12/17 08:11 04/12/17 08:11 04/12/17 08:11 Intake and Output: 04/12/17 04/12/17 06:59 18:59 Intake Total 300 180 Output Total 250 250 Balance 50 -70 - Medications Medications: Current Medications Amitriptyline HCl (Elavil) 25 mg PO [facility] Last Admin: 04/11/17 22:15 Dose: 25 mg Docusate Sodium (Colace) 100 mg PO BID [facility] Last Admin: 04/12/17 10:06 Dose: 100 mg Doxazosin Mesylate (Cardura) 2 mg PO [facility] Last Admin: 04/11/17 22:15 Dose: 2 mg Gabapentin (Neurontin) 300 mg PO [facility] PRN Reason: Protocol Last Admin: 04/11/17 22:13 Dose: 300 mg Home Med (Home Med) 1 unit PO BID [facility] Last Admin: 04/12/17 10:07 Dose: 1 unit Home Med (Home Med) 40 unit PO DAILY [facility] Last Admin: 04/12/17 10:08 Dose: 40 unit Home Med (Home Med) 40 unit PO DAILY [facility] Last Admin: 04/12/17 10:05 Dose: 40 unit Meropenem 500 mg/ Sodium (Chloride) 100 mls @ 100 mls/hr IVPB Q12 NONI PRN Reason: Protocol Last Admin: 04/12/17 10:06 Dose: 100 mls/hr Iron Sucrose 200 mg/ Sodium (Chloride) 110 mls @ 110 mls/hr IVPB MWF ONE Stop: 04/13/17 10:59 Insulin Human Regular (Humulin R Low) 0 units SC ACHS [facility] PRN Reason: Protocol Last Admin: 04/12/17 12:28 Dose: Not Given Linezolid (Zyvox) 600 mg PO BID [facility] PRN Reason: Protocol Stop: 04/21/17 18:01 Multivitamins (Thera Tab) 1 tab PO BID [facility] Last Admin: 04/12/17 10:06 Dose: 1 tab Polyethylene Glycol (Miralax) 17 gm PO DAILY PRN PRN Reason: Constipation Last Admin: 04/12/17 10:06 Dose: 17 gm Valsartan (Diovan) 320 mg PO DAILY [facility] Last Admin: 04/12/17 10:05 Dose: 320 mg - Labs Labs: 04/12/17 06:30 04/12/17 14:50 PT 12.7 SECONDS (9.4-12.5) H 04/10/17 15:08 INR 1.11 (0.93-1.08) H 04/10/17 15:08 APTT 30.6 Seconds (25.1-36.5) 04/10/17 15:08 - Constitutional Appears: Well - ENT Exam ENT Exam: Mucous Membranes Moist, Normal Exam - Respiratory Exam Respiratory Exam: Clear to Ausculation Bilateral, NORMAL BREATHING PATTERN - Cardiovascular Exam Cardiovascular Exam: REGULAR RHYTHM, +S1, +S2. absent: Murmur - GI/Abdominal Exam GI & Abdominal Exam: Soft, Normal Bowel Sounds. absent: Tenderness - Back Exam Additional comments: RLE dressing appears c/d/i; No tracking erythema or warmth noted Assessment and Plan - Assessment and Plan (Free Text) Assessment: Ms. Dinero is a 76 y/o woman with pmhx significant for anemia, MGUS, DM, HTN, lower back pain admiited for RLE cellulitis refractory PO abx and necessitating IV abx. Continue with IV abx and dressing changes per ID and podiatry respectfully. Bakari Littlejohn MD Hematology/Oncology Service
--- NOTE | 2017-04-12 16:44 | CP.PCM.PN ---
Subjective - Date & Time of Evaluation Date of Evaluation: 04/13/17 Time of Evaluation: 16:00 - Subjective Subjective: No acute events; Still no BM. Back pain a little better. Got out of bed more and in chair ROS: 12 ROs otherwise negative pain: baseline back pain slightly better Objective - Vital Signs/Intake and Output Vital Signs (last 24 hours): Temp Pulse Resp BP Pulse Ox 98.5 F 60 18 140/53 L 97 04/12/17 08:11 04/12/17 08:11 04/12/17 08:11 04/12/17 08:11 04/12/17 08:11 Intake and Output: 04/12/17 04/12/17 06:59 18:59 Intake Total 300 180 Output Total 250 250 Balance 50 -70 - Medications Medications: Current Medications Amitriptyline HCl (Elavil) 25 mg PO HS [facility] Last Admin: 04/11/17 22:15 Dose: 25 mg Docusate Sodium (Colace) 100 mg PO BID [facility] Last Admin: 04/12/17 10:06 Dose: 100 mg Doxazosin Mesylate (Cardura) 2 mg PO [facility] Last Admin: 04/11/17 22:15 Dose: 2 mg Gabapentin (Neurontin) 300 mg PO [facility] PRN Reason: Protocol Last Admin: 04/11/17 22:13 Dose: 300 mg Home Med (Home Med) 1 unit PO BID [facility] Last Admin: 04/12/17 10:07 Dose: 1 unit Home Med (Home Med) 40 unit PO DAILY [facility] Last Admin: 04/12/17 10:08 Dose: 40 unit Home Med (Home Med) 40 unit PO DAILY [facility] Last Admin: 04/12/17 10:05 Dose: 40 unit Meropenem 500 mg/ Sodium (Chloride) 100 mls @ 100 mls/hr IVPB Q12 [facility]I PRN Reason: Protocol Last Admin: 04/12/17 10:06 Dose: 100 mls/hr Iron Sucrose 200 mg/ Sodium (Chloride) 110 mls @ 110 mls/hr IVPB MWF ONE Stop: 04/13/17 10:59 Insulin Human Regular (Humulin R Low) 0 units SC ACHS [facility] PRN Reason: Protocol Last Admin: 04/12/17 12:28 Dose: Not Given Linezolid (Zyvox) 600 mg PO BID [facility] PRN Reason: Protocol Stop: 04/21/17 18:01 Multivitamins (Thera Tab) 1 tab PO BID [facility] Last Admin: 04/12/17 10:06 Dose: 1 tab Polyethylene Glycol (Miralax) 17 gm PO DAILY PRN PRN Reason: Constipation Last Admin: 04/12/17 10:06 Dose: 17 gm Valsartan (Diovan) 320 mg PO DAILY [facility] Last Admin: 04/12/17 10:05 Dose: 320 mg - Labs Labs: 04/12/17 06:30 04/12/17 14:50 PT 12.7 SECONDS (9.4-12.5) H 04/10/17 15:08 INR 1.11 (0.93-1.08) H 04/10/17 15:08 APTT 30.6 Seconds (25.1-36.5) 04/10/17 15:08 - Constitutional Appears: Well - Respiratory Exam Respiratory Exam: Clear to Ausculation Bilateral, NORMAL BREATHING PATTERN - Cardiovascular Exam Cardiovascular Exam: REGULAR RHYTHM, +S1, +S2. absent: Murmur - GI/Abdominal Exam GI & Abdominal Exam: Soft, Normal Bowel Sounds. absent: Tenderness - Extremities Exam Extremities Exam: Full ROM, Normal Capillary Refill, Normal Inspection. absent : Joint Swelling, Pedal Edema Assessment and Plan - Assessment and Plan (Free Text) Assessment: Ms. Dinero is a 76 y/o woman with pmhx significant for anemia, MGUS, DM, HTN, lower back pain admiited for RLE cellulitis refractory PO abx and necessitating IV abx. Continue with IV abx and dressing changes per ID and podiatry respectfully. Optimizing bowel regimen to bID colace and prn miralax. If still no BM will consider enema Bakari Littlejohn MD Hematology/Oncology Service
[2017-04-12] MEDS ORDERED: POLYETHYLENE GLYCOL 3350 17 GM/Dose PACKET PO PRN (17:51)
[2017-04-13 07:07] LABS: HEMOGLOBIN 9.3 g/dL (12.0-16.0); MEAN CELL VOLUME 93.8 fl (80.0-105.0); MEAN CORPUSCULAR HEMOGLOBIN 30.6 pg (25.0-35.0); MEAN CORPUSCULAR HGB CONC 32.6 g/dl (31.0-37.0); RBC 3.04 10^6/uL (3.5-6.1); RED CELL DISTRIBUTION WIDTH 12.6 % (11.5-14.5)
[2017-04-13 07:19] LABS: ALBUMIN 2.9 g/dL (3.0-4.8); CALCIUM 9.2 mg/dL (8.4-10.5)
[2017-04-13 07:36] LABS: ALB/GLOB RATIO 1.2 (1.1-1.8)
--- NOTE | 2017-04-13 10:06 | CP.PCM.PN ---
Subjective - Date & Time of Evaluation Date of Evaluation: 04/13/17 Time of Evaluation: 10:01 - Subjective Subjective: Patient seen and examined at bedside. Patient doing well overnight with no acute issues. Patient admits to improvement in leg pain. Patient has not had a bowel movement. Denies chest pain, shortness of breath, nausea, vomiting, diarrhea, headache. Objective - Vital Signs/Intake and Output Vital Signs (last 24 hours): Temp Pulse Resp BP Pulse Ox 98.9 F 63 18 156/62 H 96 04/13/17 07:30 04/13/17 07:30 04/13/17 07:30 04/13/17 07:30 04/13/17 07:30 Intake and Output: 04/13/17 04/13/17 06:59 18:59 Intake Total 120 Output Total 500 Balance -380 - Medications Medications: Current Medications Amitriptyline HCl (Elavil) 25 mg PO HS [facility] Last Admin: 04/12/17 22:13 Dose: 25 mg Docusate Sodium (Colace) 100 mg PO BID [facility] Last Admin: 04/12/17 17:40 Dose: 100 mg Doxazosin Mesylate (Cardura) 2 mg PO [facility] Last Admin: 04/12/17 22:13 Dose: 2 mg Gabapentin (Neurontin) 300 mg PO [facility] PRN Reason: Protocol Last Admin: 04/12/17 22:13 Dose: 300 mg Home Med (Home Med) 1 unit PO BID [facility] Last Admin: 04/12/17 17:40 Dose: 1 unit Home Med (Home Med) 40 unit PO DAILY [facility] Last Admin: 04/12/17 10:08 Dose: 40 unit Home Med (Home Med) 40 unit PO DAILY [facility] Last Admin: 04/12/17 10:05 Dose: 40 unit Meropenem 500 mg/ Sodium (Chloride) 100 mls @ 100 mls/hr IVPB Q12 NONI PRN Reason: Protocol Last Admin: 04/12/17 22:13 Dose: 100 mls/hr Iron Sucrose 200 mg/ Sodium (Chloride) 110 mls @ 110 mls/hr IVPB MWF ONE Stop: 04/13/17 10:59 Insulin Human Regular (Humulin R Low) 0 units SC [facility] PRN Reason: Protocol Last Admin: 04/12/17 23:16 Dose: Not Given Linezolid (Zyvox) 600 mg PO BID [facility] PRN Reason: Protocol Stop: 04/21/17 18:01 Last Admin: 04/12/17 17:40 Dose: 600 mg Multivitamins (Thera Tab) 1 tab PO BID [facility] Last Admin: 04/12/17 19:35 Dose: 1 tab Polyethylene Glycol (Miralax) 17 gm PO BID PRN PRN Reason: Constipation Last Admin: 04/12/17 22:14 Dose: 17 gm Valsartan (Diovan) 320 mg PO DAILY [facility] Last Admin: 04/12/17 10:05 Dose: 320 mg - Labs Labs: 04/13/17 06:15 04/13/17 06:15 PT 12.7 SECONDS (9.4-12.5) H 04/10/17 15:08 INR 1.11 (0.93-1.08) H 04/10/17 15:08 APTT 30.6 Seconds (25.1-36.5) 04/10/17 15:08 - Constitutional Appears: Non-toxic, No Acute Distress - Head Exam Head Exam: ATRAUMATIC, NORMAL INSPECTION, NORMOCEPHALIC - ENT Exam ENT Exam: Mucous Membranes Moist, Normal Exam - Respiratory Exam Respiratory Exam: Clear to Ausculation Bilateral, NORMAL BREATHING PATTERN. absent: Rales, Rhonchi, Wheezes - Cardiovascular Exam Cardiovascular Exam: RRR, +S1, +S2 - GI/Abdominal Exam GI & Abdominal Exam: Soft, Normal Bowel Sounds. absent: Tenderness - Extremities Exam Extremities Exam: Pedal Edema (b/l +2). absent: Calf Tenderness - Neurological Exam Neurological Exam: Alert, Awake, Oriented x3 - Psychiatric Exam Psychiatric exam: Normal Affect, Normal Mood - Skin Skin Exam: Warm Additional comments: B/l lower extremities erythematous. Right lower extremity bandaged. Dressing is clean and dry. Assessment and Plan - Assessment and Plan (Free Text) Plan: 76 y/o woman with past medical history of anemia, MGUS, DM, HTN, lower back pain presenting with RLE cellulitis refractory PO abx. Patient remains on Linezolid and Merrem as per ID. Patient is having daily dressing changes as per podiatry. Patient is also pending a RLE ultrasound and bone scan to rule out osteomyelitis. Will also obtain RENE. Patient has yet to have a bowel movement, will consider enema if patient does not have BM by end of day. Patient remains on Miralax and Colace regimen. Plan discussed with Dr. Littlejohn. Sybil, PGY-2
--- NOTE | 2017-04-13 11:42 | CP.PCM.PN ---
Subjective - Date & Time of Evaluation Date of Evaluation: 04/13/17 Time of Evaluation: 11:39 - Subjective Subjective: 76 year old female seen at bedside for b/l venous stasis dermatitis to her LE and lysed, weeping blister to right posterior leg. Patient is AAO x 3 and NAD, resting comfortably in bed at time of visit. Denies any acute overnight events. Denies any new symptoms. Denies N/V/F/C/CP/SOB/D/posterior calf pain. Denies any further pedal complaints at this time. Objective - Vital Signs/Intake and Output Vital Signs (last 24 hours): Temp Pulse Resp BP Pulse Ox 98.9 F 63 18 156/62 H 96 04/13/17 07:30 04/13/17 07:30 04/13/17 07:30 04/13/17 07:30 04/13/17 07:30 Intake and Output: 04/13/17 04/13/17 06:59 18:59 Intake Total 120 Output Total 500 Balance -380 - Medications Medications: Current Medications Amitriptyline HCl (Elavil) 25 mg PO HS [facility] Last Admin: 04/12/17 22:13 Dose: 25 mg Docusate Sodium (Colace) 100 mg PO BID [facility] Last Admin: 04/12/17 17:40 Dose: 100 mg Doxazosin Mesylate (Cardura) 2 mg PO HS [facility] Last Admin: 04/12/17 22:13 Dose: 2 mg Gabapentin (Neurontin) 300 mg PO HS [facility] PRN Reason: Protocol Last Admin: 04/12/17 22:13 Dose: 300 mg Home Med (Home Med) 1 unit PO BID [facility] Last Admin: 04/12/17 17:40 Dose: 1 unit Home Med (Home Med) 40 unit PO DAILY [facility] Last Admin: 04/12/17 10:08 Dose: 40 unit Home Med (Home Med) 40 unit PO DAILY [facility] Last Admin: 04/12/17 10:05 Dose: 40 unit Meropenem 500 mg/ Sodium (Chloride) 100 mls @ 100 mls/hr IVPB Q12 [facility] PRN Reason: Protocol Last Admin: 04/12/17 22:13 Dose: 100 mls/hr Insulin Human Regular (Humulin R Low) 0 units SC ACHS [facility] PRN Reason: Protocol Last Admin: 04/12/17 23:16 Dose: Not Given Linezolid (Zyvox) 600 mg PO BID [facility] PRN Reason: Protocol Stop: 04/21/17 18:01 Last Admin: 04/12/17 17:40 Dose: 600 mg Multivitamins (Thera Tab) 1 tab PO BID [facility] Last Admin: 04/12/17 19:35 Dose: 1 tab Polyethylene Glycol (Miralax) 17 gm PO BID PRN PRN Reason: Constipation Last Admin: 04/12/17 22:14 Dose: 17 gm Valsartan (Diovan) 320 mg PO DAILY [facility] Last Admin: 04/12/17 10:05 Dose: 320 mg - Labs Labs: 04/13/17 06:15 04/13/17 06:15 PT 12.7 SECONDS (9.4-12.5) H 04/10/17 15:08 INR 1.11 (0.93-1.08) H 04/10/17 15:08 APTT 30.6 Seconds (25.1-36.5) 04/10/17 15:08 - Constitutional Appears: Well, Non-toxic, No Acute Distress - Extremities Exam Additional comments: Vasc: DP and PT unpalable secondary to edema b/l, skin temperature warm to warm from proximal to distal b/l, capillary refill time < 3 seconds, pitting edema noted to LE b/l Ortho: no pain with palpation to the LE Neuro: gross and protective sensation diminished Derm: Left leg lateral aspect superficial ulceration measuring approximately 1.5 cm x 1 cm with fibrotic base, no serous drainage, no odor, no purulence, no probe to bone, no undermining or tunneling. Lysed, weeping blister noted to posterior right leg. Erythematous changes noted to b/l LE, most likely secondary to venous stasis dermatitis. - Neurological Exam Neurological Exam: Alert, Awake, Oriented x3 - Psychiatric Exam Psychiatric exam: Normal Affect, Normal Mood Assessment and Plan - Assessment and Plan (Free Text) Assessment: 76 year old female seen at bedside for b/l venous stasis dermatitis to her LE and lysed, weeping blister to right posterior leg Plan: Patient seen and evaluated at bedside with attending Dr. Tomas Afebrile, absent leukocytosis Wound cx left leg, preliminary: no growth after 24 hrs LE US b/l: No evidence of DVT Tib/fib xray: Normal radiograph Left leg wound left open to air Right lysed blister dressed with DSD Lotrisone and Silvadene ordered for daily application to b/l venous stasis dermatitis changes Podiatry will continue to follow while patient in house
[2017-04-13] MEDS: Meropenem 500 MG in Sodium Chloride 0.9% 100 ML IVPB SCH ×2 (12:49→22:18)
[2017-04-13] MEDS: Multivitamin Therapeutic Tab PO SCH ×2 (12:51→18:04)
[2017-04-13] MEDS: Insulin Reg-LOW-Coverage SC SCH ×4 (12:53→21:57)
[2017-04-13] MEDS: D3 PO SCH ×2 (12:56→18:07)
[2017-04-13] MEDS: MAGNESIUM PO SCH ×2 (12:56→18:07)
[2017-04-13] MEDS: CALCIUM CITRATE PO SCH ×2 (12:56→18:07)
[2017-04-13] MEDS: COREG 40 MG PO SCH (12:57)
[2017-04-13] MEDS: ULORIC 40MG PO SCH (12:57)
--- NOTE | 2017-04-13 12:57 | US ---
PROCEDURE: Lower extremity RENE exam HISTORY: Peripheral vascular disease with pain and ulceration. Diabetes PHYSICIAN(S): Jayson Anne MD. FINDINGS: The exam is limited by calcified, noncompressible vessels. The resting ABIs are not obtained The brachial systolic pressures are symmetric. The low thigh pressures are noncompressible. Low thigh PVR waveforms are symmetric The calf PVR waveforms augment normally. No significant gradients are noted across the thighs. The ankle and metatarsal waveforms are relatively normal and symmetric. No significant pressure gradients are noted across the lower legs. IMPRESSION: 1. Relatively normal distal PVR waveforms. 2. Limited study due to calcified vessels and body habitus.
--- NOTE | 2017-04-13 17:40 | NM ---
PROCEDURE: Three-phase bone scan HISTORY: r/o left leg osteo COMPARISON: Plain film radiographs 04/11/2017. TECHNIQUE: Following administration of 27.4 miCu of Tc MDP multiplanar whole body images were obtained. FINDINGS: Flow component: Increased flow to the left lower extremity particularly about the left calf. Blood pool component: Increased accumulation of radionuclide in both lower extremities although the left appears more edematous than the right. No focal osseous abnormalities. Delayed images at 3:00: Increased uptake in the left midfoot. Degenerative changes both knees. Other findings: None. IMPRESSION: Negative study for acute osseous process. Findings suggest cellulitis particularly left lower extremity/left calf compared to right.
--- NOTE | 2017-04-13 18:53 | PN ---
DATE: 04/13/2017 SUBJECTIVE: The patient is seen sitting in chair. She is awake. She is alert. She is comfortable. She is complaining of back pain. She is complaining of pain in her legs. She is also complaining of erythema of her lower extremities. PHYSICAL EXAMINATION: GENERAL: Morbidly obese elderly lady sitting in chair. VITAL SIGNS: Blood pressure 156/62, heart rate 63, respiratory rate 18, and temperature 98.9. HEENT: Normocephalic, atraumatic, positive pallor. NECK: Supple, no JVD. LUNGS: Bilateral equal air entry, bilateral equal expansion. CARDIAC: S1 and S2, regular rate and rhythm, no murmur, no rub. ABDOMEN: Obese, distended, soft, nontender, bowel sounds present. EXTREMITIES: Erythema of the lower extremities, chronic edema, cellulitis of both lower legs. INTAKE AND OUTPUT: 300/715. LABORATORY DATA: WBC 6, hemoglobin 9, hematocrit 28.5, platelets 233. Sodium 140, potassium 4.4, chloride 107, CO2 of 26, BUN 30, creatinine 1.7, glucose 136, calcium 9.2, albumin 2.9, corrected calcium is 9.9. Iron saturation 10%, total iron 21, ferritin 90. Urinalysis yellow, clear, pH 6.0, specific gravity 1.015, protein negative, ketones negative, creatinine clearance 28 ??. Cultures no growth so far. Ultrasound RENE, relatively normal distal PVR waveforms. CURRENT MEDICATIONS: Cardura 2 mg q.h.s., Colace, Diovan 320, Elavil 25, Caltrate, insulin coverage not needed, Lotrisone, meropenem 500 q.12, MiraLax 17 gm, Neurontin 300, multivitamin, Zyvox 600 b.i.d., Venofer 200 mg given today. ASSESSMENT: 1. Acute kidney injury superimposed on chronic kidney disease stage 3, resolved acute kidney injury. 2. Lower extremity cellulitis. 3. Chronic lower extremity edema. 4. Anemia with low iron stores. 5. Trc-pswvvor-wvytrfnrt diabetes mellitus. 6. Morbid obesity. 7. Left ventricular hypertrophy, mild aortic insufficiency. PLAN: 1. Renal function is approaching baseline. 2. Okay to continue ARB. 3. Antibiotics as per ID recommendations, dose for creatinine clearance about 30 mL/minute. 4. Agree with Venofer. 5. Check hemoglobin A1c. 6. Agree with discontinuation of metformin, will likely need another agent. The patient was on Tradjenta at home. Alyson Bateman MD
--- NOTE | 2017-04-13 23:16 | PN ---
DATE: 04/13/2017 SUBJECTIVE: The patient is in bed, in no acute distress, nontoxic, was seen early this morning. PHYSICAL EXAMINATION: VITAL SIGNS: Temperature is 98, blood pressure is 150/60, respiratory rate of 18. HEENT: Unremarkable. HEART: Normal S1, S2. LUNGS: Have decreased breath. ABDOMEN: Soft, nontender. LABORATORY DATA: Reveals a white count of 6, hemoglobin of 9, platelets of 233. Chemistries reveals a BUN of 30, creatinine of 1.7 and urinalysis is noted. Stool for occult blood is negative. Blood cultures are negative.. The left leg culture had no growth and the patient had a bone scan, the results are pending. ASSESSMENT/PLAN: This is a 76-year-old female with morbid obesity, BMI of 42 and hypertension and lower extremity edema, chronic edema and high cholesterol, history of urinary tract infection with Escherichia coli, presenting with left leg cellulitis and an ulcer, was ALLERGIC TO PENICILLIN AND CLINDAMYCIN. The patient is on tramadol and concerned about serotonin syndrome with a drug-drug interaction with Zyvox and currently on linezolid, awaiting for a bone scan, may be able to switch to p.o. antibiotic, may be able to continue the p.o. antibiotic with linezolid or switch to tramadol is absolutely necessary, and we will make further recommendations, pending the bone scan results. We will follow. Rinku Yoon MD
[2017-04-14 07:01] LABS: HEMOGLOBIN 9.4 g/dL (12.0-16.0); MEAN CELL VOLUME 91.4 fl (80.0-105.0); MEAN CORPUSCULAR HGB CONC 32.9 g/dl (31.0-37.0); MEAN PLATELET VOLUME 9.4 fl (7.0-11.0); RBC 3.13 10^6/uL (3.5-6.1); RED CELL DISTRIBUTION WIDTH 13.3 % (11.5-14.5); WHITE BLOOD COUNT 5.4 10^3/ul (4.5-11.0)
[2017-04-14 07:26] LABS: CALCIUM 9.4 mg/dL (8.4-10.5)
[2017-04-14 07:29] LABS: ALB/GLOB RATIO 1.3 (1.1-1.8)
[2017-04-14] MEDS: Insulin Reg-LOW-Coverage SC SCH ×4 (08:30→18:16)
[2017-04-14] MEDS ORDERED: Silver Sulfadiazine 1% Cream (25 gm) TP SCH (10:00)
[2017-04-14] MEDS ORDERED: Clotrimazole/Betamethasone Lotion(30 ml) TOP SCH (10:00)
[2017-04-14 10:07] VITALS: BP 167/61; PULSE 81; RESP 20; TEMP 98.7; O2SAT 96
[2017-04-14] MEDS: Multivitamin Therapeutic Tab PO SCH ×2 (10:34→18:13)
[2017-04-14] MEDS: Meropenem 500 MG in Sodium Chloride 0.9% 100 ML IVPB SCH (10:34)
[2017-04-14] MEDS: CALCIUM CITRATE PO SCH ×2 (10:36→18:14)
[2017-04-14] MEDS: MAGNESIUM PO SCH ×2 (10:36→18:14)
[2017-04-14] MEDS: D3 PO SCH ×2 (10:36→18:14)
[2017-04-14] MEDS: ULORIC 40MG PO SCH (10:36)
[2017-04-14] MEDS: COREG 40 MG PO SCH (10:38)
--- NOTE | 2017-04-14 15:40 | CP.PCM.DIS ---
Provider - Provider Date of Admission: 04/10/17 16:03 Attending physician: Clovis Watters MD Primary care physician: Vania Kang MD Consults: [facility] - Dr. Pope Podiatry - Dr. Metz Time Spent in preparation of Discharge (in minutes): 45 Diagnosis - Discharge Diagnosis (1) Cellulitis of leg Status: Acute (2) Acute on chronic renal insufficiency Status: Chronic (3) Obesity Status: Chronic Hospital Course - Lab Results Lab Results: Micro Results 04/11/17 09:02 Leg - Left Gram Stain - Final 04/11/17 09:02 Leg - Left Wound Culture - Final No growth. Most Recent Lab Values WBC 5.4 10^3/ul (4.5-11.0) 04/14/17 06:20 RBC 3.13 10^6/uL (3.5-6.1) L 04/14/17 06:20 Hgb 9.4 g/dL (12.0-16.0) L 04/14/17 06:20 Hct 28.6 % (36.0-48.0) L 04/14/17 06:20 MCV 91.4 fl (80.0-105.0) 04/14/17 06:20 MCH 30.0 pg (25.0-35.0) 04/14/17 06:20 MCHC 32.9 g/dl (31.0-37.0) 04/14/17 06:20 RDW 13.3 % (11.5-14.5) 04/14/17 06:20 Plt Count 235 10^3/uL (120.0-450.0) 04/14/17 06:20 MPV 9.4 fl (7.0-11.0) 04/14/17 06:20 Gran % 84.3 % (50.0-68.0) H 04/10/17 15:08 Lymph % (Auto) 7.7 % (22.0-35.0) L 04/10/17 15:08 [place] % (Auto) 5.2 % (1.0-6.0) 04/10/17 15:08 Eos % (Auto) 2.7 % (1.5-5.0) 04/10/17 15:08 Baso % (Auto) 0.1 % (0.0-3.0) 04/10/17 15:08 Gran # 8.94 (1.4-6.5) H 04/10/17 15:08 Lymph # 0.8 (1.2-3.4) L 04/10/17 15:08 [place] # 0.6 (0.1-0.6) 04/10/17 15:08 Eos # 0.3 (0.0-0.7) 04/10/17 15:08 Baso # 0.01 K/mm3 (0.0-2.0) 04/10/17 15:08 ESR 66 mm/hr (0.0-20.0) H 04/11/17 07:00 PT 12.7 SECONDS (9.4-12.5) H 04/10/17 15:08 INR 1.11 (0.93-1.08) H 04/10/17 15:08 APTT 30.6 Seconds (25.1-36.5) 04/10/17 15:08 Sodium 141 mmol/L (132-148) 04/14/17 06:20 Potassium 4.1 mmol/L (3.6-5.0) 04/14/17 06:20 Chloride 107 mmol/L (98-107) 04/14/17 06:20 Carbon Dioxide 26 mmol/L (21-33) 04/14/17 06:20 Anion Gap 13 (10-20) 04/14/17 06:20 BUN 27 mg/dL (7-21) H 04/14/17 06:20 Creatinine 1.6 mg/dl (0.7-1.2) H 04/14/17 06:20 Est GFR ( Amer) 38 04/14/17 06:20 Est GFR (Non-Af Amer) 31 04/14/17 06:20 POC Glucose (mg/dL) 165 mg/dL (65-110) H 04/14/17 11:28 Random Glucose 131 mg/dL (70-110) H 04/14/17 06:20 Hemoglobin A1c 6.9 % (4.2-6.5) H 04/13/17 06:15 Uric Acid 4.9 mg/dL (2.5-6.2) 04/12/17 06:30 Calcium 9.4 mg/dL (8.4-10.5) 04/14/17 06:20 Phosphorus 4.5 mg/dL (2.5-4.5) 04/12/17 06:30 Magnesium 2.2 mg/dL (1.7-2.2) 04/12/17 06:30 Iron 21 ug/dL (45-180) L 04/11/17 07:30 TIBC 218 ug/dL (265-497) L 04/11/17 07:30 % Saturation 10 % (20-55) L 04/11/17 07:30 Ferritin 90.4 ng/mL 04/11/17 07:30 Total Bilirubin 0.3 mg/dL (0.2-1.3) 04/14/17 06:20 AST 20 U/L (14-36) 04/14/17 06:20 ALT 28 U/L (7-56) 04/14/17 06:20 Alkaline Phosphatase 63 U/L (38-126) 04/14/17 06:20 C-React Prot High Sens > 15.00 mg/L (1.00-3.00) H 04/11/17 07:00 Total Protein 5.4 g/dL (5.8-8.3) L 04/14/17 06:20 Albumin 3.0 g/dL (3.0-4.8) 04/14/17 06:20 Globulin 2.4 gm/dL 04/14/17 06:20 Albumin/Globulin Ratio 1.3 (1.1-1.8) 04/14/17 06:20 Vitamin B12 > 1000 pg/mL (239-931) H 04/11/17 07:30 25-OH Vitamin D Total 38.1 NG/ML (30.0-100.0) 04/12/17 06:30 Folate > 20.0 ng/mL 04/11/17 07:30 Thyroxine (T4) 5.4 ug/dL (5.5-11.0) L 04/11/17 07:30 TSH 3rd Generation 1.06 mIU/mL (0.46-4.68) 04/11/17 07:30 PTH Intact Whole Molec 18 pg/mL (14-64) 04/11/17 07:30 Urine Color Yellow (YELLOW) 04/11/17 15:00 Urine Appearance Clear (CLEAR) 04/11/17 15:00 Urine pH 6.0 (4.7-8.0) 04/11/17 15:00 Ur Specific [place] 1.015 (1.005-1.035) 04/11/17 15:00 Urine Protein Negative mg/dL (<30 mg/dL) 04/11/17 15:00 Urine Glucose (UA) Negative mg/dL (NEGATIVE) 04/11/17 15:00 Urine Ketones Negative mg/dL (NEGATIVE) 04/11/17 15:00 Urine Blood Negative (NEGATIVE) 04/11/17 15:00 Urine Nitrate Negative (NEGATIVE) 04/11/17 15:00 Urine Bilirubin Negative (NEGATIVE) 04/11/17 15:00 Urine Urobilinogen 0.2 E.U./dL (<1 E.U./dL) 04/11/17 15:00 Ur Leukocyte Esterase Negative Anali/uL (NEGATIVE) 04/11/17 15:00 Urine Collection Time 24 HOURS 04/12/17 14:50 Urine Total Volume 1500 mL (800-1400) H 04/12/17 14:50 Creatinine Clearance 28.0 ml/min (80-120) L 04/12/17 14:50 Ur Protein 24 Hr Calc 330 mg/24HR (42-225) H 04/12/17 14:50 Stool Occult Blood Negative (NEGATIVE) 04/13/17 14:40 - Hospital Course Hospital Course: 76 y/o woman with past medical history of anemia, MGUS, DM, HTN, lower back pain presenting with RLE cellulitis refractory to oral abx. Patient was started on Linezolid and Merrem as per ID. Patient was also followed by Podiatry who treated her wounds daily. Patient received a bone scan which was negative to rule out osteomyelitis. Patient also received b/l lower extremity RENE's, which were found to relatively normal, but the study was limited due to patient's body habitus. Patient also began having normal bowel movements once placed on bowel regimen. Patient will be transferred to TCU for further treatment and physical therapy. Discharge Exam - Head Exam Head Exam: ATRAUMATIC, NORMAL INSPECTION, NORMOCEPHALIC - ENT Exam ENT Exam: Mucous Membranes Moist - Respiratory Exam Respiratory Exam: Clear to PA & Lateral, NORMAL BREATHING PATTERN. absent: Rales, Rhonchi, Wheezes - Cardiovascular Exam Cardiovascular Exam: RRR, +S1, +S2 - GI/Abdominal Exam GI & Abdominal Exam: Normal Bowel Sounds, Unremarkable. absent: Tenderness - Extremities Exam Extremities exam: pedal edema - Neurological Exam Neurological exam: Alert, CN II-XII Intact, Oriented x3 - Psychiatric Exam Psychiatric exam: Normal Affect, Normal Mood - Skin Skin Exam: Intact, Warm Additional comments: Lower extremities erythematous b/l, but improving. Right lower ext ulcer bandaged. Discharge Plan - Follow Up Plan Condition: FAIR Disposition: HOME/ ROUTINE Referrals: Vania Kang MD [Primary Care Provider] -
--- NOTE | 2017-04-14 18:59 | PN ---
DATE: SUBJECTIVE: The patient is currently seen sitting on a chair on 5R. She is entirely comfortable. Her legs are exposed. She still continues to have mild erythema of her legs with a dressing over the right lower leg. She had been seen by podiatry. She remains on IV antibiotic therapy for cellulitis of her lower extremity. Her creatinine has improved and is now down to 1.6, which is at her baseline. MEDICATIONS: Medication list reviewed. The patient is currently on Cardura, Colace, Diovan, Elavil, Caltrate, insulin, Lotrisone, meropenem, MiraLax, Neurontin, Silvadene, Thera-Tab, and Zyvox p.o. OBJECTIVE: INTAKE/OUTPUT: Intake 900, output 600. VITAL SIGNS: Blood pressure ranging from 156-167 systolic, diastolics ranging from 56-62. Temperature 98.7, pulse 81, respiratory rate is 20. Pulse ox is 96%. HEENT: Shows her to be normocephalic, atraumatic. Conjunctivae are pale. Sclerae are nonicteric. NECK: Supple. No neck vein distention. CHEST: Clear to auscultation and percussion. No rales, rhonchi or wheezing. CARDIOVASCULAR: Shows a regular rate and rhythm with MR/TR/AI. No S3. No S4. No rub. ABDOMEN: Soft. Bowel sounds normal. No rebound, guarding or masses. EXTREMITIES: Show chronic lymphedema with mild erythema of her lower extremity bilaterally. She has a dressing over her right lower leg. Slight increased warmth to touch. Diminished lower extremity pulses secondary to edema. LABORATORY DATA AND IMAGING: Nuclear bone scan done yesterday showed no evidence for osteomyelitis, positive cellulitis, left greater than right leg. CBC: White blood cell count 5.4, hemoglobin 9.4, platelet count is 235,000. Chemistry showed normal electrolytes. BUN 27, creatinine 1.6 back to baseline levels. Liver enzymes are normal. Hemoglobin A1c was 6.9%. Glucose is 131. Liver enzymes normal. Albumin is 3.0. A 24-hour urine showed a creatinine clearance of 28 mL/minute with 330 mg per 24 urine collection. Stool occult blood was negative x1. Microbiology, all cultures are negative to date. ASSESSMENT: 1. Acute renal failure superimposed on chronic kidney disease stage III. This has improved and patient is back to baseline levels. A 24-hour urine as noted above showed a creatinine clearance of 28 mL per minute with 330 mg of protein in the urine. 2. Bilateral cellulitis, improving. The patient remains on both IV and oral antibiotic therapy. All cultures are negative to date. 3. History of chronic lower extremity lymphedema. The patient will continue leg elevation. She has an apparent wound on her right lower extremity. This is being evaluated by her technology solutions architect, Dr. Tomas. The patient would like not to use diuretic therapy. Once the wound heals, she will once again use compression stockings. 4. History of anemia in part secondary to chronic kidney disease, in part secondary to iron deficiency. The patient will continue IV Venofer for a total of 1 g. Her stools are negative for blood. 5. History of noninsulin-dependent diabetes mellitus, currently on insulin. Possible history of diabetic nephropathy with mild proteinuria. History of mild diabetic neuropathy. Possible retinopathy. 6. 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 PLAN: 1. Continue IV and oral antibiotic therapy. 2. Continue IV Venofer to a total of 1 g. 3. Leg elevation and compression stockings once the right leg wound heals. 4. The patient should be maintained on a renal diet. 5. I agree with everybody's plan to have metformin discontinued in light of her chronic kidney disease stage III. The patient may continue on alternative oral agents for her diabetes. Jair Williamson MD
--- NOTE | 2017-04-14 23:15 | PN ---
DATE: 04/14/2017 SUBJECTIVE: The patient is in bed, was seen early this morning in room 561, bed 2. No fevers and no chills. No nausea. No vomiting. Her legs are greatly improved. PHYSICAL EXAMINATION: VITAL SIGNS: Temperature is 98, blood pressure is 120/70 and respiratory rate of 16. HEENT: Unremarkable. NECK: Supple. LUNGS: Have decreased breath sounds. HEART: Normal S1 and S2. ABDOMEN: Soft. EXTREMITIES: Examination of her legs are greatly improved. LABORATORY DATA: Reveals a white count of 5.4, is 66. Chemistries reveal a BUN of 27 and creatinine of 1.6. Urinalysis is noted. Blood cultures are negative. Urine cultures are negative. Bone scan is noted. ASSESSMENT AND PLAN: This is a 76-year-old female who was seen early this morning in room 561, bed 2 with morbid obesity body mass index of 42, hypertension, lower extremity edema, chronic edema, high cholesterol, history of urinary tract infection with Escherichia coli. She is allergic to penicillin and clindamycin and currently switched to p.o. doxycycline to complete therapy. We will follow with you. Rinku Yoon MD
== END 2017-04-14 19:00 | DRG 603 ==
LOC: ED 13:15 → ERH 16:03 → 5RSO 19:33 → 5RNO 04-11 20:40
PROVIDERS: ADMIT Family Medicine; ATTEND Family Medicine
DX: L03.115 Cellulitis of right lower limb (principal); N17.9 Acute kidney failure, unspecified; E11.21 Type 2 diabetes mellitus with diabetic nephropathy; E11.40 Type 2 diabetes mellitus with diabetic neuropathy, unspecified; E66.01 Morbid (severe) obesity due to excess calories; I08.3 Combined rheumatic disorders of mitral, aortic and tricuspid valves; D47.2 Monoclonal gammopathy; L97.929 Non-pressure chronic ulcer of unspecified part of left lower leg with unspecified severity; Z68.42 Body mass index [BMI] 45.0-49.9, adult; E11.319 Type 2 diabetes mellitus with unspecified diabetic retinopathy without macular edema; L03.116 Cellulitis of left lower limb; D63.1 Anemia in chronic kidney disease; D50.9 Iron deficiency anemia, unspecified; E11.51 Type 2 diabetes mellitus with diabetic peripheral angiopathy without gangrene; E11.22 Type 2 diabetes mellitus with diabetic chronic kidney disease; I12.9 Hypertensive chronic kidney disease with stage 1 through stage 4 chronic kidney disease, or unspecified chronic kidney disease; E11.622 Type 2 diabetes mellitus with other skin ulcer; E78.00 Pure hypercholesterolemia, unspecified; E78.5 Hyperlipidemia, unspecified; I87.2 Venous insufficiency (chronic) (peripheral); I89.0 Lymphedema, not elsewhere classified; N18.3 Chronic kidney disease, stage 3 (moderate); Z79.84 Long term (current) use of oral hypoglycemic drugs; Z79.899 Other long term (current) drug therapy; Z82.49 Family history of ischemic heart disease and other diseases of the circulatory system; Z87.440 Personal history of urinary (tract) infections; Z88.0 Allergy status to penicillin; Z88.1 Allergy status to other antibiotic agents

== ENCOUNTER 2017-04-14 18:25 | Inpatient (IN) | payer OTHER, BC ==
[2017-04-14] MEDS ORDERED: Meropenem 500 MG in Sodium Chloride 0.9% 100 ML IVPB SCH (20:15)
[2017-04-14] MEDS: Meropenem 500 MG in Sodium Chloride 0.9% 100 ML IVPB SCH (21:49)
[2017-04-14] MEDS: Insulin Reg-LOW-Coverage SC SCH (21:49)
[2017-04-14] MEDS ORDERED: DOXAZOSIN MESYLATE 2 MG PO SCH (22:00)
[2017-04-14 23:57] VITALS: BMI 44.2
[2017-04-14] MEDS ORDERED: Pneumococcal 23-Valent Vaccine IM ONE (23:57)
[2017-04-14] MEDS ORDERED: Influenza Vaccine 60 mcg/0.5 mL SYR (4YR UP) IM ONE (23:57)
[2017-04-15] MEDS: Insulin Reg-LOW-Coverage SC SCH ×4 (06:30→22:48)
[2017-04-15 08:35] LABS: HEMOGLOBIN 9.6 g/dL (12.0-16.0); MEAN CELL VOLUME 91.5 fl (80.0-105.0); MEAN CORPUSCULAR HEMOGLOBIN 30.2 pg (25.0-35.0); MEAN PLATELET VOLUME 8.7 fl (7.0-11.0); RBC 3.18 10^6/uL (3.5-6.1); RED CELL DISTRIBUTION WIDTH 12.9 % (11.5-14.5); WHITE BLOOD COUNT 5.1 10^3/ul (4.5-11.0)
[2017-04-15 08:45] LABS: ALBUMIN 3.1 g/dL (3.0-4.8)
[2017-04-15 09:00] LABS: ALB/GLOB RATIO 1.4 (1.1-1.8)
[2017-04-15] MEDS: Non Formulary Medication (Carvedilol [Coreg Cr] 40 MG) PO SCH (09:00)
[2017-04-15] MEDS: Multivitamin Therapeutic Tab PO SCH ×2 (11:00→17:14)
[2017-04-15] MEDS: Silver Sulfadiazine 1% Cream (25 gm) TP SCH (11:00)
[2017-04-15] MEDS: Clotrimazole/Betamethasone Cream(15 gm) TOP SCH (11:00)
[2017-04-15] MEDS: D3 PO SCH ×2 (11:00→17:10)
[2017-04-15] MEDS: POLYETHYLENE GLYCOL 3350 17 GM/Dose PACKET PO SCH ×3 (11:00→17:14)
[2017-04-15] MEDS: CALCIUM CITRATE PO SCH ×2 (11:00→17:10)
[2017-04-15] MEDS: MAGNESIUM PO SCH ×2 (11:00→17:10)
[2017-04-15] MEDS: Meropenem 500 MG in Sodium Chloride 0.9% 100 ML IVPB SCH (11:05)
--- NOTE | 2017-04-15 11:56 | CP.PCM.HP ---
History of Present Illness - History of Present Illness History of Present Illness: 76 y/o woman with past medical history of anemia, MGUS, DM, HTN, lower back pain presenting with RLE cellulitis refractory to oral abx. Patient was started on Linezolid and Merrem as per ID. Patient was also followed by Podiatry who treated her wounds daily. Patient received a bone scan which was negative to rule out osteomyelitis. Patient also received b/l lower extremity RENE's, which were found to relatively normal, but the study was limited due to patient's body habitus. Patient also began having normal bowel movements once placed on bowel regimen. Patient transferred to the TCU for further physical therapy and treatment. Today, patient states she is doing well with no complaints. Her pain is much improved at this time. Denies chest pain, shortness of breath, nausea, vomiting, diarrhea, fever, headache. PMH: anemia, MGUS, DM, HTN, lower back pain Surgical Hx: Left lumpectomy Family Med hx: Noncontributory Allergies: Clindamycin, Penicillin Medications: Reviewed, as per MAR Present on Admission - Present on Admission Any Indicators Present on Admission: No Review of Systems - Review of Systems Review of Systems: 12 point ROS as per HPI, otherwise negative Past Patient History - Tetanus Immunizations Tetanus Immunization: Unknown - Past Social History Smoking Status: Never Smoked - CARDIAC Hx Hypertension: Yes - NEUROLOGICAL Hx Neurological Disorder: (bilateral foot neuropathy) - HEENT Hx HEENT Problems: (L Retinopathy) - RENAL Hx Chronic Kidney Disease: (renal insuficiency) - ENDOCRINE/METABOLIC Hx Diabetes Mellitus Type 2: Yes - INTEGUMENTARY Other/Comment: dry skin and slight redness ble - MUSCULOSKELETAL/RHEUMATOLOGICAL Hx Falls: No - GASTROINTESTINAL Hx Gastrointestinal Disorders: Yes - GENITOURINARY/GYNECOLOGICAL Hx Genitourinary Disorders: Yes Hx Reproductive Disorders: No - PSYCHIATRIC Hx Depression: No Hx Emotional Abuse: No Hx Physical Abuse: No Hx Substance Use: No - SURGICAL HISTORY Hx Musculoskeletal Surgery: Yes (R breast lumpectomy benigh) - ANESTHESIA Hx Anesthesia: Yes Hx Anesthesia Reactions: No Hx Malignant Hyperthermia: No Meds Allergies/Adverse Reactions: Allergies Allergy/AdvReac Type Severity Reaction Status Date / Time clindamycin Allergy RASH Verified 04/14/17 19:32 Penicillins Allergy ANAPHYLAXIS Verified 04/14/17 19:32 Physical Exam - Constitutional Appears: Non-toxic, No Acute Distress - Head Exam Head Exam: ATRAUMATIC, NORMAL INSPECTION, NORMOCEPHALIC - ENT Exam ENT Exam: Mucous Membranes Moist - Respiratory Exam Respiratory Exam: Clear to Auscultation Bilateral, NORMAL BREATHING PATTERN - Cardiovascular Exam Cardiovascular Exam: RRR, +S1, +S2 - GI/Abdominal Exam GI & Abdominal Exam: Normal Bowel Sounds, Soft. absent: Tenderness - Extremities Exam Extremities exam: Positive for: pedal edema. Negative for: calf tenderness - Neurological Exam Neurological exam: Alert, CN II-XII Intact, Oriented x3 - Psychiatric Exam Psychiatric exam: Normal Affect, Normal Mood - Skin Skin Exam: Warm Additional comments: Erythema b/l improving. Right foot bandaged. Results - Vital Signs Recent Vital Signs: Last Vital Signs Temp 97.9 F 04/14/17 23:41 Pulse 66 04/14/17 23:41 Resp 18 04/14/17 23:41 BP 169/61 H 04/14/17 23:41 Pulse Ox 96 04/14/17 19:09 - Labs Result Diagrams: 04/15/17 08:00 04/15/17 08:00 Labs: Laboratory Results - last 24 hr 04/15/17 04/15/17 04/15/17 05:33 08:00 08:00 WBC 5.1 RBC 3.18 L Hgb 9.6 L Hct 29.1 L MCV 91.5 MCH 30.2 MCHC 33.0 RDW 12.9 Plt Count 214 MPV 8.7 Sodium 138 Potassium 4.2 Chloride 105 Carbon Dioxide 23 Anion Gap 14 BUN 26 H Creatinine 1.6 H Est GFR ( Amer) 38 Est GFR (Non-Af Amer) 31 POC Glucose (mg/dL) 129 H Random Glucose 185 H Calcium 9.0 Total Bilirubin 0.4 AST 19 ALT 32 Alkaline Phosphatase 65 Total Protein 5.4 L Albumin 3.1 Globulin 2.3 Albumin/Globulin Ratio 1.4 04/15/17 11:12 WBC RBC Hgb Hct MCV MCH MCHC RDW Plt Count MPV Sodium Potassium Chloride Carbon Dioxide Anion Gap BUN Creatinine Est GFR ( Amer) Est GFR (Non-Af Amer) POC Glucose (mg/dL) 157 H Random Glucose Calcium Total Bilirubin AST ALT Alkaline Phosphatase Total Protein Albumin Globulin Albumin/Globulin Ratio Assessment & Plan - Assessment and Plan (Free Text) Plan: 76 y/o woman with past medical history of anemia, MGUS, DM, HTN, lower back pain presenting with RLE cellulitis and deconditioning. Patient was previously on IV Merrem and Zyvox, but has now been changed to oral Zyvox. Patient continues to improve with less pain in her lower extremities. Patient is working with physical therapy and will continue to do so. Bone scan was negative for osteomyelitis. Patient will continue her current bowel regimen. Plan discussed with Dr. Littlejohn. Sybil, PGY-2
[2017-04-15] MEDS: guaiFENesin 100 mg/5 ml Syrup UD PO PRN ×2 (15:05→21:21)
--- NOTE | 2017-04-15 18:18 | CP.PCM.CON ---
<Cait Weinberg - Last Filed: 04/15/17 18:15> History of Present Illness - History of Present Illness History of Present Illness: 76 year old female seen at bedside in TCU for bilateral venous stasis dermatitis to her LE and lysed, weeping blister to right posterior leg. Patient is AAO x 3 and NAD. Pt is seated in upright chair at time of visit with legs dangling down. Denies any acute overnight events. Denies N/V/F/C/CP/SOB/D/ posterior calf pain. Denies any further pedal complaints at this time. Review of Systems - Review of Systems All systems: reviewed and no additional remarkable complaints except (per HPI) Past Patient History - Tetanus Immunizations Tetanus Immunization: Unknown - Past Social History Smoking Status: Never Smoked - CARDIAC Hx Hypertension: Yes - NEUROLOGICAL Hx Neurological Disorder: (bilateral foot neuropathy) - HEENT Hx HEENT Problems: (L Retinopathy) - RENAL Hx Chronic Kidney Disease: (renal insuficiency) - ENDOCRINE/METABOLIC Hx Diabetes Mellitus Type 2: Yes - INTEGUMENTARY Other/Comment: dry skin and slight redness ble - MUSCULOSKELETAL/RHEUMATOLOGICAL Hx Falls: No - GASTROINTESTINAL Hx Gastrointestinal Disorders: Yes - GENITOURINARY/GYNECOLOGICAL Hx Genitourinary Disorders: Yes Hx Reproductive Disorders: No - PSYCHIATRIC Hx Depression: No Hx Emotional Abuse: No Hx Physical Abuse: No Hx Substance Use: No - SURGICAL HISTORY Hx Musculoskeletal Surgery: Yes (R breast lumpectomy benigh) - ANESTHESIA Hx Anesthesia: Yes Hx Anesthesia Reactions: No Hx Malignant Hyperthermia: No Meds Allergies/Adverse Reactions: Allergies Allergy/AdvReac Type Severity Reaction Status Date / Time clindamycin Allergy RASH Verified 04/14/17 19:32 Penicillins Allergy ANAPHYLAXIS Verified 04/14/17 19:32 - Medications Medications: Current Medications Acetaminophen (Tylenol 325mg Tab) 650 mg PO Q4H PRN; Protocol PRN Reason: Pain, Mild (1-3) Last Admin: 04/15/17 17:07 Dose: 650 mg Amitriptyline HCl (Elavil) 25 mg PO HS NONI PRN Reason: Protocol Last Admin: 04/14/17 21:49 Dose: 25 mg Betamethasone/Clotrimazole (Lotrisone) 0 gm TOP DAILY NONI PRN Reason: Protocol Last Admin: 04/15/17 11:00 Dose: 1 dose Docusate Sodium (Colace) 100 mg PO BID NONI PRN Reason: Protocol Last Admin: 04/15/17 17:11 Dose: 100 mg Doxazosin Mesylate (Cardura) 2 mg PO HS [facility] Last Admin: 04/14/17 21:48 Dose: 2 mg Doxycycline Hyclate (Doryx) 100 mg PO Q12 NONI PRN Reason: Protocol Stop: 04/20/17 22:01 Gabapentin (Neurontin) 300 mg PO HS NONI PRN Reason: Protocol Last Admin: 04/14/17 21:50 Dose: 300 mg Guaifenesin (Robitussin) 100 mg PO Q6H PRN; Protocol PRN Reason: Cough Last Admin: 04/15/17 15:05 Dose: 100 mg Insulin Human Regular (Humulin R Low) 0 units SC ACHS NONI PRN Reason: Protocol Last Admin: 04/15/17 17:11 Dose: 2 units Multivitamins (Thera Tab) 1 tab PO BID [facility] PRN Reason: Protocol Last Admin: 04/15/17 17:14 Dose: 1 tab (Calcium Citrate/Magnesium/D3 [ Calcium Citrate Chewable Wafer] 1 1 tab PO BID [facility] Last Admin: 04/15/17 17:10 Dose: 1 tab Non-Formulary Medication (Carvedilol [Coreg Cr]) 40 mg PO 0800 [facility] Last Admin: 04/15/17 09:00 Dose: 40 mg (Febuxostat [Uloric] (40 Mg)) 40 mg PO DAILY [facility] Last Admin: 04/15/17 11:00 Dose: 40 mg Polyethylene Glycol (Miralax) 17 gm PO BID [facility] PRN Reason: Protocol Last Admin: 04/15/17 17:14 Dose: Not Given Silver Sulfadiazine (Silvadene 1% 25 Gm) 0 gm TP DAILY [facility] PRN Reason: Protocol Last Admin: 04/15/17 11:00 Dose: 1 gm Valsartan (Diovan) 320 mg PO DAILY [facility] PRN Reason: Protocol Last Admin: 04/15/17 11:00 Dose: 320 mg Physical Exam - Constitutional Appears: Well, Non-toxic, No Acute Distress - Extremities Exam Additional comments: Vasc: DP and PT unpalable secondary to edema b/l, skin temperature warm to warm from proximal to distal b/l, capillary refill time < 3 seconds, pitting edema noted to LE b/l Ortho: no pain with palpation to the LE Neuro: gross and protective sensation diminished Derm: Left leg lateral aspect superficial ulceration appears to be healing at this time with epithelialized tissue forming over wound bed. Lysed, weeping superficial ulceration noted to posterior right leg with granular base, no probe to bone, no tunneling, no malodor, no fluctuance. Erythematous changes noted to b/l LE, most likely secondary to venous stasis dermatitis. - Neurological Exam Neurological exam: Alert, Oriented x3 - Psychiatric Exam Psychiatric exam: Normal Affect, Normal Mood Results - Vital Signs Recent Vital Signs: Last Vital Signs Temp 98.6 F 04/15/17 16:00 Pulse 68 04/15/17 16:00 Resp 18 04/15/17 16:00 BP 145/63 04/15/17 16:00 Pulse Ox 94 L 04/15/17 16:00 - Labs Result Diagrams: 04/15/17 08:00 04/15/17 08:00 Labs: Laboratory Results - last 24 hr 04/15/17 04/15/17 04/15/17 05:33 08:00 08:00 WBC 5.1 RBC 3.18 L Hgb 9.6 L Hct 29.1 L MCV 91.5 MCH 30.2 MCHC 33.0 RDW 12.9 Plt Count 214 MPV 8.7 Sodium 138 Potassium 4.2 Chloride 105 Carbon Dioxide 23 Anion Gap 14 BUN 26 H Creatinine 1.6 H Est GFR ( Amer) 38 Est GFR (Non-Af Amer) 31 POC Glucose (mg/dL) 129 H Random Glucose 185 H Calcium 9.0 Total Bilirubin 0.4 AST 19 ALT 32 Alkaline Phosphatase 65 Total Protein 5.4 L Albumin 3.1 Globulin 2.3 Albumin/Globulin Ratio 1.4 04/15/17 04/15/17 11:12 16:37 WBC RBC Hgb Hct MCV MCH MCHC RDW Plt Count MPV Sodium Potassium Chloride Carbon Dioxide Anion Gap BUN Creatinine Est GFR ( Amer) Est GFR (Non-Af Amer) POC Glucose (mg/dL) 157 H 226 H Random Glucose Calcium Total Bilirubin AST ALT Alkaline Phosphatase Total Protein Albumin Globulin Albumin/Globulin Ratio Assessment & Plan - Assessment and Plan (Free Text) Assessment: 76 year old female seen at bedside for b/l venous stasis dermatitis to her LE and lysed, weeping blister to right posterior leg Plan: Patient seen and evaluated at bedside with attending Dr. Tomas Afebrile, WBC 5.4 Wound cx left leg no growth final LE US b/l: No evidence of DVT Tib/fib xray: Normal radiograph Left leg wound left open to air Right lysed blister dressed with Optifoam Lotrisone and Silvadene applied to b/l venous stasis dermatitis changes MIKAELA bandages placed bedside, to apply tomorrow AM for edema control Podiatry will continue to follow while patient in house <Carmelita Tomas - Last Filed: 04/17/17 18:02> Meds - Medications Medications: Current Medications Acetaminophen (Tylenol 325mg Tab) 650 mg PO Q4H PRN; Protocol PRN Reason: Pain, Mild (1-3) Last Admin: 04/17/17 17:39 Dose: 650 mg Amitriptyline HCl (Elavil) 25 mg PO HS NONI PRN Reason: Protocol Last Admin: 04/16/17 21:25 Dose: 25 mg Betamethasone/Clotrimazole (Lotrisone) 0 gm TOP DAILY NONI PRN Reason: Protocol Last Admin: 04/17/17 11:00 Dose: 1 dose Docusate Sodium (Colace) 100 mg PO BID NONI PRN Reason: Protocol Last Admin: 04/17/17 17:35 Dose: 100 mg Doxazosin Mesylate (Cardura) 2 mg PO HS NONI Last Admin: 04/16/17 21:25 Dose: 2 mg Doxycycline Hyclate (Doryx) 100 mg PO Q12 NONI PRN Reason: Protocol Stop: 04/20/17 22:01 Last Admin: 04/17/17 11:00 Dose: 100 mg Ferrous Sulfate (Feosol) 324 mg PO BID NONI Last Admin: 04/17/17 17:36 Dose: 324 mg Gabapentin (Neurontin) 300 mg PO HS NONI PRN Reason: Protocol Last Admin: 04/16/17 21:25 Dose: 300 mg Guaifenesin (Robitussin) 100 mg PO Q6H PRN; Protocol PRN Reason: Cough Last Admin: 04/17/17 11:24 Dose: 100 mg Insulin Human Regular (Humulin R Low) 0 units SC ACHS NONI PRN Reason: Protocol Last Admin: 04/17/17 17:30 Dose: 1 units Metformin HCl (Glucophage Xr) 750 mg PO DAILY [facility] Last Admin: 04/17/17 11:00 Dose: 750 mg Multivitamins (Thera Tab) 1 tab PO BID [facility] PRN Reason: Protocol Last Admin: 04/17/17 17:39 Dose: 1 tab (Calcium Citrate/Magnesium/D3 [ Calcium Citrate Chewable Wafer] 1 1 tab PO BID [facility] Last Admin: 04/17/17 17:34 Dose: 1 tab Non-Formulary Medication (Carvedilol [Coreg Cr]) 40 mg PO 0800 [facility] Last Admin: 04/17/17 08:53 Dose: 40 mg (Febuxostat [Uloric] (40 Mg)) 40 mg PO DAILY [facility] Last Admin: 04/17/17 11:00 Dose: 40 mg Polyethylene Glycol (Miralax) 17 gm PO BID [facility] PRN Reason: Protocol Last Admin: 04/17/17 17:38 Dose: 17 gm Silver Sulfadiazine (Silvadene 1% 25 Gm) 0 gm TP DAILY [facility] PRN Reason: Protocol Last Admin: 04/17/17 11:00 Dose: 1 gm Valsartan (Diovan) 320 mg PO DAILY [facility] PRN Reason: Protocol Last Admin: 04/17/17 11:00 Dose: 320 mg Results - Vital Signs Recent Vital Signs: Last Vital Signs Temp 98.2 F 04/17/17 10:00 Pulse 71 04/17/17 10:00 Resp 18 04/17/17 10:00 BP 174/75 H 04/17/17 10:00 Pulse Ox 95 04/16/17 17:47 - Labs Result Diagrams: 04/17/17 06:45 04/17/17 06:45 Labs: Laboratory Results - last 24 hr 04/16/17 04/17/17 04/17/17 21:43 05:03 06:45 WBC 5.0 RBC 3.25 L Hgb 9.8 L Hct 29.5 L MCV 90.8 MCH 30.2 MCHC 33.2 RDW 13.0 Plt Count 223 MPV 8.9 Sodium Potassium Chloride Carbon Dioxide Anion Gap BUN Creatinine Est GFR ( Amer) Est GFR (Non-Af Amer) POC Glucose (mg/dL) 197 H 133 H Random Glucose Calcium Total Bilirubin AST ALT Alkaline Phosphatase Total Protein Albumin Globulin Albumin/Globulin Ratio 04/17/17 04/17/17 04/17/17 06:45 12:00 16:57 WBC RBC Hgb Hct MCV MCH MCHC RDW Plt Count MPV Sodium 141 Potassium 4.0 Chloride 106 Carbon Dioxide 27 Anion Gap 12 BUN 28 H Creatinine 1.6 H Est GFR ( Amer) 38 Est GFR (Non-Af Amer) 31 POC Glucose (mg/dL) 147 H 189 H Random Glucose 137 H Calcium 9.4 Total Bilirubin 0.3 AST 31 ALT 25 Alkaline Phosphatase 64 Total Protein 6.0 Albumin 3.4 Globulin 2.5 Albumin/Globulin Ratio 1.3 Attending/Attestation - Attestation I have personally seen and examined this patient.: Yes I have fully participated in the care of the patient.: Yes I have reviewed all pertinent clinical information: Yes
--- NOTE | 2017-04-16 01:35 | CON ---
DATE: 04/15/2017 REASON FOR CONSULTATION: Anemia, hypertension, NIDDM. HISTORY OF PRESENT ILLNESS: A 76-year lady known to me from outpatient followup, recent evaluation in the medical side when the patient was admitted with acute kidney injury in the setting of cellulitis. The patient is being treated with IV antibiotics. She was on linezolid and Merrem, but now she is only on p.o. antibiotics. She is currently in the Transitional Care Unit. She is receiving physical therapy. She complains of severe low back pain. She denies any chest tightness. She denies any abdominal pain. She denies any nausea, vomiting. PAST MEDICAL AND SURGICAL HISTORY: Anemia, MGUS, NIDDM, hypertension, chronic kidney disease stage III, morbid obesity, and history of bariatric surgery. FAMILY HISTORY: Noncontributory. SOCIAL HISTORY: No smoking, no alcohol use, no IV drug abuse. ALLERGIES: CLINDAMYCIN AND PENICILLIN. MEDICATIONS: Include Cardura 2 mg daily at bedtime, Uloric 40 mg daily, Coreg CR 40 mg daily, Colace, Diovan 320, Elavil, MiraLax, Neurontin, Robitussin, Silvadene, Thera-Tab, Tylenol, and Zyvox 600 b.i.d. REVIEW OF SYSTEMS: All systems are reviewed, pertinent positives as mentioned in history of presenting illness, rest is unremarkable. PHYSICAL EXAMINATION GENERAL: Obese elderly lady. VITAL SIGNS: Blood pressure 169/61, heart rate 66, respiratory rate 18, temperature 97.9. HEENT: Normocephalic, atraumatic, positive pallor. NECK: Supple, no JVD. LUNGS: Bilateral equal entry, no rales. CARDIAC: S1 and S2. Regular rate and rhythm, no murmur, no rub. ABDOMEN: Obese, distended, soft, nontender, bowel sounds present. EXTREMITIES: Erythema of the lower extremities, ulcers on the lateral aspect of the left lower leg. 1+ pitting edema. INTAKE AND OUTPUT: Not charted. LABORATORY DATA: WBC 5.1, hemoglobin 9.6, hematocrit 29, platelets 214. Sodium 138, potassium 4.2, chloride 105, CO2 23, BUN 26, creatinine 1.6, glucose 185, calcium 9.0, phosphorus not checked, AST 18, ALT 32, albumin 3.1. ASSESSMENT AND PLAN: 1. Acute kidney injury, resolved. 2. Underlying chronic kidney disease stage III. 3. Cellulitis of the lower extremities. 4. Multifactorial anemia. 5. Morbid obesity. 6. Glu-[id number] diabetes mellitus. 7. Hypertension. 8. Hypoalbuminemia. PLAN: 1. Continue antibiotics as per ID recommendations. 2. Physical therapy. 3. Monitor fingersticks. 4. Continue current antihypertensives. Thank you for the courtesy of this consultation. We will follow this patient closely with you. Alyson Bateman MD
--- NOTE | 2017-04-16 01:55 | CON ---
DATE: 04/15/2017 LOCATION: The patient is seen in room 313 early this morning. CHIEF COMPLAINT: Weakness from several days. HISTORY OF PRESENT ILLNESS: This is a 76-year-old female with morbid obesity with BMI of 45, high cholesterol, history of ESBL E. coli, history of lower extremity cellulitis, history of diabetes mellitus with retinopathy and neuropathy, hypertension, renal disease, history of E. coli bacteremia, ALLERGY TO PENICILLIN AND CLINDAMYCIN, and monoclonal gammopathy who was admitted with lower extremity cellulitis, who was treated with antibiotics, which improved now, admitted to the Transitional Care. Infectious Disease antibiotics are noted. REVIEW OF SYSTEMS: There is no fever. No chills. No nausea. No vomiting. No chest pain. PAST MEDICAL HISTORY: Significant for diabetes, diabetic retinopathy and neuropathy, high-cholesterol, ESBL E. coli urinary tract infection, bee-sensitive E. coli bacteremia, history of lower extremity cellulitis, hypertension, monoclonal gammopathy, and renal insufficiency. ALLERGIES: THE PATIENT IS ALLERGIC TO PENICILLIN AND CLINDAMYCIN. PHYSICAL EXAMINATION: VITAL SIGNS: Temperature is 98, blood pressure is 169/70, and respiratory rate of 16. HEENT: Unremarkable. NECK: Supple. LUNGS: Have decreased breath sounds. HEART: Normal S1 and S2. ABDOMEN: Soft. EXTREMITIES: Examination of the extremities reveal erythema and was noted to be much improved since admission to the acute care. ASSESSMENT AND PLAN: This is a 76-year-old morbidly obese female with body mass index of 45, diabetes mellitus, retinopathy, neuropathy, high cholesterol, extended-spectrum beta-lactamase Escherichia coli in urine, lower extremity cellulitis, hypertension, monoclonal gammopathy, renal disease with left leg cellulitis with left leg ulcer, who is ALLERGIC TO PENICILLIN AND CLINDAMYCIN. We will treat the patient with doxycycline. At this time responded to physical therapy. Because of the patient's need for tramadol, we will discontinue the Zyvox, which was started today and use daptomycin rather doxycycline x5 days 100 mg b.i.d. The patient is asking for tramadol for chronic back pain. We will follow with you. Rinku Yoon MD [facility] # [id number]
[2017-04-16] MEDS: Insulin Reg-LOW-Coverage SC SCH ×4 (06:46→22:24)
[2017-04-16 07:09] LABS: HEMOGLOBIN 10.1 g/dL (12.0-16.0); MEAN CELL VOLUME 91.4 fl (80.0-105.0); MEAN CORPUSCULAR HEMOGLOBIN 30.1 pg (25.0-35.0); MEAN CORPUSCULAR HGB CONC 32.9 g/dl (31.0-37.0); MEAN PLATELET VOLUME 9.1 fl (7.0-11.0); RBC 3.36 10^6/uL (3.5-6.1); WHITE BLOOD COUNT 5.1 10^3/ul (4.5-11.0)
[2017-04-16 08:22] LABS: ALB/GLOB RATIO 1.3 (1.1-1.8); ALBUMIN 3.4 g/dL (3.0-4.8); CALCIUM 9.5 mg/dL (8.4-10.5)
[2017-04-16] MEDS: guaiFENesin 100 mg/5 ml Syrup UD PO PRN ×3 (08:35→21:26)
[2017-04-16] MEDS: Non Formulary Medication (Carvedilol [Coreg Cr] 40 MG) PO SCH (08:35)
[2017-04-16] MEDS: Multivitamin Therapeutic Tab PO SCH ×2 (09:03→17:11)
[2017-04-16] MEDS: POLYETHYLENE GLYCOL 3350 17 GM/Dose PACKET PO SCH ×3 (09:04→17:19)
[2017-04-16] MEDS: Silver Sulfadiazine 1% Cream (25 gm) TP SCH (09:08)
[2017-04-16] MEDS: Clotrimazole/Betamethasone Cream(15 gm) TOP SCH (09:09)
[2017-04-16] MEDS: MAGNESIUM PO SCH ×2 (09:50→17:10)
[2017-04-16] MEDS: D3 PO SCH ×2 (09:50→17:10)
[2017-04-16] MEDS: CALCIUM CITRATE PO SCH ×2 (09:50→17:10)
--- NOTE | 2017-04-16 12:38 | CP.PCM.PN ---
<LenardCait - Last Filed: 04/16/17 12:41> Subjective - Date & Time of Evaluation Date of Evaluation: 04/16/17 Time of Evaluation: 12:38 - Subjective Subjective: 76 year old female seen at bedside in TCU with attending Dr. Tomas for bilateral venous stasis dermatitis to her LE and superficial ulceration to right posterior leg. Patient is AAO x 3 and NAD. Pt is seated in upright chair at time of visit with legs dangling. She states she has been walking with physical therapy today, and elevates her legs on the recliner for some of the daytime. Denies any acute overnight events. Denies N/V/F/C/CP/SOB/D/posterior calf pain. Denies any further pedal complaints at this time. Objective - Vital Signs/Intake and Output Vital Signs (last 24 hours): Temp Pulse Resp BP Pulse Ox 98.6 F 68 18 145/63 94 L 04/15/17 16:00 04/15/17 16:00 04/15/17 16:00 04/15/17 16:00 04/15/17 16:00 Intake and Output: 04/16/17 04/16/17 06:59 18:59 Intake Total 280 Output Total 300 Balance -20 - Medications Medications: Current Medications Acetaminophen (Tylenol 325mg Tab) 650 mg PO Q4H PRN; Protocol PRN Reason: Pain, Mild (1-3) Last Admin: 04/16/17 06:55 Dose: 650 mg Amitriptyline HCl (Elavil) 25 mg PO HS NONI PRN Reason: Protocol Last Admin: 04/15/17 21:11 Dose: 25 mg Betamethasone/Clotrimazole (Lotrisone) 0 gm TOP DAILY NONI PRN Reason: Protocol Last Admin: 04/16/17 09:09 Dose: 1 dose Docusate Sodium (Colace) 100 mg PO BID NONI PRN Reason: Protocol Last Admin: 04/16/17 09:04 Dose: 100 mg Doxazosin Mesylate (Cardura) 2 mg PO HS NONI Last Admin: 04/15/17 21:09 Dose: 2 mg Doxycycline Hyclate (Doryx) 100 mg PO Q12 NONI PRN Reason: Protocol Stop: 04/20/17 22:01 Last Admin: 04/16/17 09:04 Dose: 100 mg Gabapentin (Neurontin) 300 mg PO HS NONI PRN Reason: Protocol Last Admin: 04/15/17 21:10 Dose: 300 mg Guaifenesin (Robitussin) 100 mg PO Q6H PRN; Protocol PRN Reason: Cough Last Admin: 04/16/17 08:35 Dose: 100 mg Insulin Human Regular (Humulin R Low) 0 units SC ACHS NOIN PRN Reason: Protocol Last Admin: 04/16/17 06:46 Dose: Not Given Multivitamins (Thera Tab) 1 tab PO BID NONI PRN Reason: Protocol Last Admin: 04/16/17 09:03 Dose: 1 tab (Calcium Citrate/Magnesium/D3 [ Calcium Citrate Chewable Wafer] 1 1 tab PO BID [facility] Last Admin: 04/16/17 09:50 Dose: Not Given Non-Formulary Medication (Carvedilol [Coreg Cr]) 40 mg PO 0800 [facility] Last Admin: 04/16/17 08:35 Dose: 40 mg (Febuxostat [Uloric] (40 Mg)) 40 mg PO DAILY [facility] Last Admin: 04/16/17 09:03 Dose: 40 mg Polyethylene Glycol (Miralax) 17 gm PO BID NONI PRN Reason: Protocol Last Admin: 04/16/17 09:04 Dose: 17 gm Silver Sulfadiazine (Silvadene 1% 25 Gm) 0 gm TP DAILY NONI PRN Reason: Protocol Last Admin: 04/16/17 09:08 Dose: 25 gm Valsartan (Diovan) 320 mg PO DAILY [facility] PRN Reason: Protocol Last Admin: 04/16/17 09:03 Dose: 320 mg - Labs Labs: 04/16/17 06:30 04/16/17 06:30 - Constitutional Appears: Well, Non-toxic, No Acute Distress - Extremities Exam Additional comments: Vasc: DP and PT unpalable secondary to edema B/L, skin temperature warm to cool from proximal to distal B/L. CFT < 3 seconds, +2 pitting edema noted to LE B/L Ortho: no pain on palpation to the LE Neuro: gross and protective sensation diminished Derm: Left leg lateral aspect superficial ulceration appears to be healing at this time with epithelialized tissue forming over wound bed. Lysed, weeping superficial ulceration noted to posterior right leg with granular base, no probe to bone, no tunneling, no malodor, no fluctuance. Erythematous changes noted to bilateral LE, most likely secondary to venous stasis dermatitis. - Neurological Exam Neurological Exam: Alert, Awake, Oriented x3 - Psychiatric Exam Psychiatric exam: Normal Affect, Normal Mood Assessment and Plan - Assessment and Plan (Free Text) Assessment: 76 year old female seen at bedside for bilateral venous stasis dermatitis to her LE and superficial ulceration to right posterior leg Plan: Patient seen and evaluated at bedside with attending Dr. Tomas Labs and vitals reviewed- afebrile, WBC 5.1 Wound cx final of left leg shows no growth LE US B/L: No evidence of DVT Tib/fib xray: Normal radiograph Left leg wound left open to air Right leg superficial ulceration dressed with Optifoam Lotrisone applied to venous stasis dermatitis changes MIKAELA bandages applied in venous wrap fashion for compression therapy - to be removed at nighttime and reapplied by podiatry tomorrow Podiatry will continue to follow while patient in house <Carmelita Tomas - Last Filed: 04/17/17 18:07> Objective - Vital Signs/Intake and Output Vital Signs (last 24 hours): Temp Pulse Resp BP Pulse Ox 98.2 F 71 18 174/75 H 95 04/17/17 10:00 04/17/17 10:00 04/17/17 10:00 04/17/17 10:00 04/16/17 17:47 Intake and Output: 04/17/17 04/17/17 06:59 18:59 Intake Total 280 Output Total 300 Balance -20 - Medications Medications: Current Medications Acetaminophen (Tylenol 325mg Tab) 650 mg PO Q4H PRN; Protocol PRN Reason: Pain, Mild (1-3) Last Admin: 04/17/17 17:39 Dose: 650 mg Amitriptyline HCl (Elavil) 25 mg PO HS NONI PRN Reason: Protocol Last Admin: 04/16/17 21:25 Dose: 25 mg Betamethasone/Clotrimazole (Lotrisone) 0 gm TOP DAILY NONI PRN Reason: Protocol Last Admin: 04/17/17 11:00 Dose: 1 dose Docusate Sodium (Colace) 100 mg PO BID NONI PRN Reason: Protocol Last Admin: 04/17/17 17:35 Dose: 100 mg Doxazosin Mesylate (Cardura) 2 mg PO HS NONI Last Admin: 04/16/17 21:25 Dose: 2 mg Doxycycline Hyclate (Doryx) 100 mg PO Q12 NONI PRN Reason: Protocol Stop: 04/20/17 22:01 Last Admin: 04/17/17 11:00 Dose: 100 mg Ferrous Sulfate (Feosol) 324 mg PO BID [facility] Last Admin: 04/17/17 17:36 Dose: 324 mg Gabapentin (Neurontin) 300 mg PO HS NONI PRN Reason: Protocol Last Admin: 04/16/17 21:25 Dose: 300 mg Guaifenesin (Robitussin) 100 mg PO Q6H PRN; Protocol PRN Reason: Cough Last Admin: 04/17/17 11:24 Dose: 100 mg Insulin Human Regular (Humulin R Low) 0 units SC [facility] NONI PRN Reason: Protocol Last Admin: 04/17/17 17:30 Dose: 1 units Metformin HCl (Glucophage Xr) 750 mg PO DAILY [facility] Last Admin: 04/17/17 11:00 Dose: 750 mg Multivitamins (Thera Tab) 1 tab PO BID NONI PRN Reason: Protocol Last Admin: 04/17/17 17:39 Dose: 1 tab (Calcium Citrate/Magnesium/D3 [ Calcium Citrate Chewable Wafer] 1 1 tab PO BID [facility] Last Admin: 04/17/17 17:34 Dose: 1 tab Non-Formulary Medication (Carvedilol [Coreg Cr]) 40 mg PO 0800 [facility] Last Admin: 04/17/17 08:53 Dose: 40 mg (Febuxostat [Uloric] (40 Mg)) 40 mg PO DAILY [facility] Last Admin: 04/17/17 11:00 Dose: 40 mg Polyethylene Glycol (Miralax) 17 gm PO BID NONI PRN Reason: Protocol Last Admin: 04/17/17 17:38 Dose: 17 gm Silver Sulfadiazine (Silvadene 1% 25 Gm) 0 gm TP DAILY NONI PRN Reason: Protocol Last Admin: 04/17/17 11:00 Dose: 1 gm Valsartan (Diovan) 320 mg PO DAILY NONI PRN Reason: Protocol Last Admin: 04/17/17 11:00 Dose: 320 mg - Labs Labs: 04/17/17 06:45 04/17/17 06:45 Attending/Attestation - Attestation I have personally seen and examined this patient.: Yes I have fully participated in the care of the patient.: Yes I have reviewed all pertinent clinical information, including history, physical exam and plan: Yes
--- NOTE | 2017-04-16 19:00 | PN ---
DATE: 04/16/2017 SUBJECTIVE: The patient is seen sitting in chair. She is awake. She is alert. She is comfortable. She reports that her legs are somewhat better. They are currently wrapped. She denies any nausea or vomiting. She denies any shortness of breath. PHYSICAL EXAMINATION: GENERAL: Obese elderly lady sitting in chair. VITAL SIGNS: Blood pressure 146/64, heart rate 65, respiratory rate 20, and temperature 97.2. HEENT: Normocephalic and atraumatic. Positive pallor. NECK: Supple. No JVD. LUNGS: Bilateral equal air entry, equal expansion. No rales. CARDIAC: S1 and S2. Regular rate and rhythm. No murmur. No rub. ABDOMEN: Obese, distended, soft, and nontender. Bowel sounds present. EXTREMITIES: Dressing and Jarad bandage over both lower extremities. LABORATORY DATA: WBC 5, hemoglobin 10, hematocrit 30.7, and platelets 231. Sodium 141, potassium 4.0, chloride 104, CO2 of 26, BUN 26, creatinine 1.6, glucose 141, and calcium 9.5. AST 26, ALT 32, and albumin 3.4. Iron saturation was 10%, iron was 21, ferritin was 90, and A1c was 6.9. CURRENT MEDICATIONS: Uloric 40 mg daily Caltrate one b.i.d., Cardura 2 mg at bedtime, Coreg 40 daily, Colace 100 b.i.d., Diovan 320, doxycycline 100 q.12 hours, Elavil, insulin, Lotrisone, MiraLax, Robitussin, Silvadene, Tylenol, and Zyvox discontinued yesterday. ASSESSMENT: 1. Resolved acute kidney injury, underlying chronic kidney disease stage III, stable. 2. Cellulitis of the lower extremities. 3. Morbid obesity. 4. Hypertension. 5. Mea-dvsrxky-jywasmrah diabetes mellitus. 6. Anemia of chronic disease with low iron stores. PLAN: 1. Since renal function has improved and is at baseline, restart metformin. 2. Continue antibiotics as per ID recommendations. 3. Continue current antihypertensives. 4. Monitor fingersticks and cover with insulin if needed. 5. Physical therapy. 6. Complete 1 g total of Venofer. Alyson Bateman MD [facility] # [id number]
--- NOTE | 2017-04-17 00:56 | PN ---
DATE: 04/16/2017 SUBJECTIVE: The patient is in bed, in no acute distress, nontoxic. PHYSICAL EXAMINATION: VITAL SIGNS: Temperature is 98, blood pressure is 160/60, respiratory rate of 20, and heart rate of 74. HEENT: Unremarkable. NECK: Supple. LUNGS: Have decreased breath sounds. HEART: Normal S1 and S2. ABDOMEN: Soft. EXTREMITIES: Examination of the leg is much improved. LABORATORY DATA: Reveals a white count of 5.1 and hemoglobin of 10. BUN of 26 and creatinine of 1.6. ASSESSMENT AND PLAN: This is a 76-year-old female with morbid obesity BMI of 45, diabetes mellitus, retinopathy, diabetic neuropathy, high cholesterol, extended-spectrum beta-lactamases, Escherichia coli in the urine in the past, lower extremity cellulitis, hypertension, monoclonal gammopathy, and renal disease. Admitted on this admission with; 1. Left leg cellulitis with a left leg ulcer, ALLERGIC TO PENICILLIN AND CLINDAMYCIN, and will complete with 5 days of p.o. doxycycline. The patient is requesting tramadol and unable to use linezolid. Rinku Yoon MD
--- NOTE | 2017-04-17 02:40 | PN ---
DATE: 04/16/2017 This is [facility] visit on TCU. For Dr. Littlejohn. SUBJECTIVE: The patient is a 76-year-old female, seen lying awake in bed, now continuing reconditioning after being admitted for severe cellulitis with ulcer of the left lower extremity, unresponsive to oral antibiotics with IV antibiotics given with good effect. Now, the patient reports she is again on oral antibiotics as per Dr. Yoon. She is participating with TCU protocols and is in no acute distress. OBJECTIVE AND PHYSICAL EXAMINATION: VITAL SIGNS: Temperature 98.5 pulse 74, respirations 20, blood pressure 161/65, and pulse ox 95%. HEENT: Unremarkable. NECK: Supple. HEART: Regular rate. LUNGS: Clear. ABDOMEN: Obese, soft, nontender. EXTREMITIES: Showing +1 edema with erythema bilaterally to lower extremities with stasis dermatitis changes improved from the office visit prior to her hospitalization. NEUROLOGIC: She is awake, alert and oriented. SKIN: Otherwise, warm, dry and clear except as above. LABORATORY DATA: The patient's labs were done. White blood cell count of 5.1, hemoglobin of 10.1, hematocrit 30.7, platelet count of 231,000. Her chem metabolic panel shows a BUN of 26 with a creatinine of 1.6, nonfasting glucose of 199 with an otherwise normal chem metabolic panel. ASSESSMENT: For this patient is that of lower extremity cellulitis, history of monoclonal gammopathy, chronic kidney disease, diabetes mellitus, deconditioning, hypertension, chronic back pain, anemia of chronic disease, gait disturbance. The patient uses a walker. Urinary incontinence history. PLAN: For this patient after conversation with Dr. Littlejohn is to continue present medical regimen with antibiotics as indicated and as per Dr. Yoon with reconditioning protocols, renal follow up with Dr. Bateman as indicated and Dr. Tomas, podiatry. PROGNOSIS: For this patient is guarded. It should be noted that the patient is also now changed to oral iron with good effect. We will monitor clinically and with labs. Clovis Watters MD
[2017-04-17] MEDS: Insulin Reg-LOW-Coverage SC SCH ×4 (06:31→21:46)
[2017-04-17 07:15] LABS: HEMOGLOBIN 9.8 g/dL (12.0-16.0); MEAN CELL VOLUME 90.8 fl (80.0-105.0); MEAN CORPUSCULAR HEMOGLOBIN 30.2 pg (25.0-35.0); MEAN CORPUSCULAR HGB CONC 33.2 g/dl (31.0-37.0); MEAN PLATELET VOLUME 8.9 fl (7.0-11.0); RBC 3.25 10^6/uL (3.5-6.1)
[2017-04-17 07:40] LABS: ALB/GLOB RATIO 1.3 (1.1-1.8); ALBUMIN 3.4 g/dL (3.0-4.8); CALCIUM 9.4 mg/dL (8.4-10.5)
[2017-04-17] MEDS: Non Formulary Medication (Carvedilol [Coreg Cr] 40 MG) PO SCH (08:53)
[2017-04-17] MEDS: Silver Sulfadiazine 1% Cream (25 gm) TP SCH (11:00)
[2017-04-17] MEDS: MAGNESIUM PO SCH ×2 (11:00→17:34)
[2017-04-17] MEDS: CALCIUM CITRATE PO SCH ×2 (11:00→17:34)
[2017-04-17] MEDS: Clotrimazole/Betamethasone Cream(15 gm) TOP SCH (11:00)
[2017-04-17] MEDS: Multivitamin Therapeutic Tab PO SCH ×2 (11:00→17:39)
[2017-04-17] MEDS: D3 PO SCH ×2 (11:00→17:34)
[2017-04-17] MEDS: POLYETHYLENE GLYCOL 3350 17 GM/Dose PACKET PO SCH ×2 (11:00→17:38)
--- NOTE | 2017-04-17 11:11 | CP.PCM.PN ---
Subjective - Date & Time of Evaluation Date of Evaluation: 04/17/17 Time of Evaluation: 11:07 - Subjective Subjective: Patient seen and examined at bedside. Patient doing well with no overnight events. Pain in lower extremities has improved. Patient had bowel movement yesterday. Denies chest pain, nausea, vomiting, diarrhea, shortness of breath, fever, chills. Objective - Vital Signs/Intake and Output Vital Signs (last 24 hours): Temp Pulse Resp BP Pulse Ox 98.5 F 74 20 161/65 H 95 04/16/17 17:47 04/16/17 17:47 04/16/17 17:47 04/16/17 17:47 04/16/17 17:47 Intake and Output: 04/17/17 04/17/17 06:59 18:59 Intake Total 280 Output Total 300 Balance -20 - Medications Medications: Current Medications Acetaminophen (Tylenol 325mg Tab) 650 mg PO Q4H PRN; Protocol PRN Reason: Pain, Mild (1-3) Last Admin: 04/16/17 21:26 Dose: 650 mg Amitriptyline HCl (Elavil) 25 mg PO HS NONI PRN Reason: Protocol Last Admin: 04/16/17 21:25 Dose: 25 mg Betamethasone/Clotrimazole (Lotrisone) 0 gm TOP DAILY NONI PRN Reason: Protocol Last Admin: 04/16/17 09:09 Dose: 1 dose Docusate Sodium (Colace) 100 mg PO BID NONI PRN Reason: Protocol Last Admin: 04/16/17 17:10 Dose: 100 mg Doxazosin Mesylate (Cardura) 2 mg PO HS [facility] Last Admin: 04/16/17 21:25 Dose: 2 mg Doxycycline Hyclate (Doryx) 100 mg PO Q12 NONI PRN Reason: Protocol Stop: 04/20/17 22:01 Last Admin: 04/16/17 21:26 Dose: 100 mg Ferrous Sulfate (Feosol) 324 mg PO BID NONI Last Admin: 04/16/17 17:11 Dose: 324 mg Gabapentin (Neurontin) 300 mg PO HS NONI PRN Reason: Protocol Last Admin: 04/16/17 21:25 Dose: 300 mg Guaifenesin (Robitussin) 100 mg PO Q6H PRN; Protocol PRN Reason: Cough Last Admin: 04/16/17 21:26 Dose: 100 mg Insulin Human Regular (Humulin R Low) 0 units SC ACHS NONI PRN Reason: Protocol Last Admin: 04/17/17 06:31 Dose: Not Given Metformin HCl (Glucophage Xr) 750 mg PO DAILY [facility] Last Admin: 04/16/17 16:39 Dose: 750 mg Multivitamins (Thera Tab) 1 tab PO BID [facility] PRN Reason: Protocol Last Admin: 04/16/17 17:11 Dose: 1 tab (Calcium Citrate/Magnesium/D3 [ Calcium Citrate Chewable Wafer] 1 1 tab PO BID [facility] Last Admin: 04/16/17 17:10 Dose: 1 tab Non-Formulary Medication (Carvedilol [Coreg Cr]) 40 mg PO 0800 [facility] Last Admin: 04/17/17 08:53 Dose: 40 mg (Febuxostat [Uloric] (40 Mg)) 40 mg PO DAILY [facility] Last Admin: 04/16/17 09:03 Dose: 40 mg Polyethylene Glycol (Miralax) 17 gm PO BID [facility] PRN Reason: Protocol Last Admin: 04/16/17 17:19 Dose: Not Given Silver Sulfadiazine (Silvadene 1% 25 Gm) 0 gm TP DAILY NONI PRN Reason: Protocol Last Admin: 04/16/17 09:08 Dose: 25 gm Valsartan (Diovan) 320 mg PO DAILY [facility] PRN Reason: Protocol Last Admin: 04/16/17 09:03 Dose: 320 mg - Labs Labs: 04/17/17 06:45 04/17/17 06:45 - Constitutional Appears: Non-toxic, No Acute Distress - Head Exam Head Exam: ATRAUMATIC, NORMAL INSPECTION, NORMOCEPHALIC - ENT Exam ENT Exam: Mucous Membranes Moist - Respiratory Exam Respiratory Exam: Clear to Ausculation Bilateral, NORMAL BREATHING PATTERN - Cardiovascular Exam Cardiovascular Exam: RRR, +S1, +S2 - GI/Abdominal Exam GI & Abdominal Exam: Soft, Normal Bowel Sounds. absent: Tenderness - Extremities Exam Extremities Exam: Normal Inspection. absent: Calf Tenderness, Pedal Edema - Neurological Exam Neurological Exam: Alert, Awake, Oriented x3 - Psychiatric Exam Psychiatric exam: Normal Affect, Normal Mood - Skin Skin Exam: Intact, Warm Additional comments: Improving erythema on lower extremities b/l Assessment and Plan - Assessment and Plan (Free Text) Plan: 76 y/o woman with past medical history of anemia, MGUS, DM, HTN, CKD, and lower back pain presenting with RLE cellulitis and deconditioning. Patient was previously on IV Merrem and Zyvox, but has now been changed to oral Doxycycline. Patient continues to improve with less pain in her lower extremities. Patient will continue working with physical therapy. Bone scan was negative for osteomyelitis. Patient will continue her current bowel regimen. Plan discussed with Dr. Littlejohn. Sybil, PGY-2
[2017-04-17] MEDS: guaiFENesin 100 mg/5 ml Syrup UD PO PRN (11:24)
--- NOTE | 2017-04-17 14:40 | CP.PCM.PN ---
<LenardCait - Last Filed: 04/17/17 14:43> Subjective - Date & Time of Evaluation Date of Evaluation: 04/17/17 Time of Evaluation: 11:50 - Subjective Subjective: 76 year old female seen this morning in TCU for bilateral venous stasis dermatitis to both lower extremities and superficial ulceration to right posterior leg. Patient is AAO x 3 and NAD. Pt is seated in upright chair at time of visit with legs dangling. She states she did therapy this morning without her MIKAELA wraps on, as she removed them last night. 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 Denies any acute overnight events. Denies N/V/F/C/CP/SOB/D/ posterior calf pain. Denies any further pedal complaints at this time. Objective - Vital Signs/Intake and Output Vital Signs (last 24 hours): Temp Pulse Resp BP Pulse Ox 98.5 F 74 20 161/65 H 95 04/16/17 17:47 04/16/17 17:47 04/16/17 17:47 04/16/17 17:47 04/16/17 17:47 Intake and Output: 04/17/17 04/17/17 06:59 18:59 Intake Total 280 Output Total 300 Balance -20 - Medications Medications: Current Medications Acetaminophen (Tylenol 325mg Tab) 650 mg PO Q4H PRN; Protocol PRN Reason: Pain, Mild (1-3) Last Admin: 04/16/17 21:26 Dose: 650 mg Amitriptyline HCl (Elavil) 25 mg PO HS NONI PRN Reason: Protocol Last Admin: 04/16/17 21:25 Dose: 25 mg Betamethasone/Clotrimazole (Lotrisone) 0 gm TOP DAILY NONI PRN Reason: Protocol Last Admin: 04/16/17 09:09 Dose: 1 dose Docusate Sodium (Colace) 100 mg PO BID NONI PRN Reason: Protocol Last Admin: 04/17/17 11:00 Dose: 100 mg Doxazosin Mesylate (Cardura) 2 mg PO HS NONI Last Admin: 04/16/17 21:25 Dose: 2 mg Doxycycline Hyclate (Doryx) 100 mg PO Q12 NONI PRN Reason: Protocol Stop: 04/20/17 22:01 Last Admin: 04/17/17 11:00 Dose: 100 mg Ferrous Sulfate (Feosol) 324 mg PO BID [facility] Last Admin: 04/17/17 11:00 Dose: 324 mg Gabapentin (Neurontin) 300 mg PO HS [facility] PRN Reason: Protocol Last Admin: 04/16/17 21:25 Dose: 300 mg Guaifenesin (Robitussin) 100 mg PO Q6H PRN; Protocol PRN Reason: Cough Last Admin: 04/17/17 11:24 Dose: 100 mg Insulin Human Regular (Humulin R Low) 0 units SC ACHS NONI PRN Reason: Protocol Last Admin: 04/17/17 12:30 Dose: Not Given Metformin HCl (Glucophage Xr) 750 mg PO DAILY [facility] Last Admin: 04/17/17 11:00 Dose: 750 mg Multivitamins (Thera Tab) 1 tab PO BID [facility] PRN Reason: Protocol Last Admin: 04/17/17 11:00 Dose: 1 tab (Calcium Citrate/Magnesium/D3 [ Calcium Citrate Chewable Wafer] 1 1 tab PO BID [facility] Last Admin: 04/17/17 11:00 Dose: 1 tab Non-Formulary Medication (Carvedilol [Coreg Cr]) 40 mg PO 0800 [facility] Last Admin: 04/17/17 08:53 Dose: 40 mg (Febuxostat [Uloric] (40 Mg)) 40 mg PO DAILY [facility] Last Admin: 04/17/17 11:00 Dose: 40 mg Polyethylene Glycol (Miralax) 17 gm PO BID [facility] PRN Reason: Protocol Last Admin: 04/17/17 11:00 Dose: Not Given Silver Sulfadiazine (Silvadene 1% 25 Gm) 0 gm TP DAILY [facility] PRN Reason: Protocol Last Admin: 04/16/17 09:08 Dose: 25 gm Valsartan (Diovan) 320 mg PO DAILY [facility] PRN Reason: Protocol Last Admin: 04/17/17 11:00 Dose: 320 mg - Labs Labs: 04/17/17 06:45 04/17/17 06:45 - Constitutional Appears: Well, Non-toxic, No Acute Distress - Extremities Exam Additional comments: Vasc: DP and PT unpalpable secondary to edema B/L, skin temperature warm to cool from proximal to distal B/L. CFT < 3 seconds, +2 pitting edema noted to LE B/L Ortho: no pain on palpation to the LE Neuro: gross and protective sensation diminished Derm: Left leg lateral aspect superficial ulceration appears to be healing at this time with epithelialized tissue forming over wound bed. Superficial ulceration noted to posterior right leg with granular base, no probe to bone, no tunneling, no malodor, no fluctuance. Mild erythematous changes noted to bilateral LE (resolving), most likely secondary to venous stasis dermatitis. - Neurological Exam Neurological Exam: Alert, Awake, Oriented x3 - Psychiatric Exam Psychiatric exam: Normal Affect, Normal Mood Assessment and Plan - Assessment and Plan (Free Text) Assessment: 76 year old female seen at bedside for bilateral venous stasis dermatitis to her LE and superficial ulceration to right posterior leg Plan: Patient seen and evaluated at bedside Discussed plan with attending Dr. Metz Labs and vitals reviewed- afebrile, WBC 5.0 Wound cx final of left leg shows no growth LE US B/L: No evidence of DVT Tib/fib xray: Normal radiograph Right leg superficial ulceration dressed with Optifoam Lotrisone applied to venous stasis dermatitis changes MIKAELA bandages applied in venous wrap fashion for compression therapy - to be removed at night and reapplied in AM daily Podiatry will continue to follow while patient in house <Jorge Metz - Last Filed: 04/17/17 18:02> Objective - Vital Signs/Intake and Output Vital Signs (last 24 hours): Temp Pulse Resp BP Pulse Ox 98.2 F 71 18 174/75 H 95 04/17/17 10:00 04/17/17 10:00 04/17/17 10:00 04/17/17 10:00 04/16/17 17:47 Intake and Output: 04/17/17 04/17/17 06:59 18:59 Intake Total 280 Output Total 300 Balance -20 - Medications Medications: Current Medications Acetaminophen (Tylenol 325mg Tab) 650 mg PO Q4H PRN; Protocol PRN Reason: Pain, Mild (1-3) Last Admin: 04/17/17 17:39 Dose: 650 mg Amitriptyline HCl (Elavil) 25 mg PO HS NONI PRN Reason: Protocol Last Admin: 04/16/17 21:25 Dose: 25 mg Betamethasone/Clotrimazole (Lotrisone) 0 gm TOP DAILY NONI PRN Reason: Protocol Last Admin: 04/17/17 11:00 Dose: 1 dose Docusate Sodium (Colace) 100 mg PO BID [facility] PRN Reason: Protocol Last Admin: 04/17/17 17:35 Dose: 100 mg Doxazosin Mesylate (Cardura) 2 mg PO HS [facility] Last Admin: 04/16/17 21:25 Dose: 2 mg Doxycycline Hyclate (Doryx) 100 mg PO Q12 NONI PRN Reason: Protocol Stop: 04/20/17 22:01 Last Admin: 04/17/17 11:00 Dose: 100 mg Ferrous Sulfate (Feosol) 324 mg PO BID [facility] Last Admin: 04/17/17 17:36 Dose: 324 mg Gabapentin (Neurontin) 300 mg PO HS [facility] PRN Reason: Protocol Last Admin: 04/16/17 21:25 Dose: 300 mg Guaifenesin (Robitussin) 100 mg PO Q6H PRN; Protocol PRN Reason: Cough Last Admin: 04/17/17 11:24 Dose: 100 mg Insulin Human Regular (Humulin R Low) 0 units SC [facility] PRN Reason: Protocol Last Admin: 04/17/17 17:30 Dose: 1 units Metformin HCl (Glucophage Xr) 750 mg PO DAILY [facility] Last Admin: 04/17/17 11:00 Dose: 750 mg Multivitamins (Thera Tab) 1 tab PO BID [facility] PRN Reason: Protocol Last Admin: 04/17/17 17:39 Dose: 1 tab (Calcium Citrate/Magnesium/D3 [ Calcium Citrate Chewable Wafer] 1 1 tab PO BID [facility] Last Admin: 04/17/17 17:34 Dose: 1 tab Non-Formulary Medication (Carvedilol [Coreg Cr]) 40 mg PO 0800 [facility] Last Admin: 04/17/17 08:53 Dose: 40 mg (Febuxostat [Uloric] (40 Mg)) 40 mg PO DAILY [facility] Last Admin: 04/17/17 11:00 Dose: 40 mg Polyethylene Glycol (Miralax) 17 gm PO BID [facility] PRN Reason: Protocol Last Admin: 04/17/17 17:38 Dose: 17 gm Silver Sulfadiazine (Silvadene 1% 25 Gm) 0 gm TP DAILY [facility] PRN Reason: Protocol Last Admin: 04/17/17 11:00 Dose: 1 gm Valsartan (Diovan) 320 mg PO DAILY [facility] PRN Reason: Protocol Last Admin: 04/17/17 11:00 Dose: 320 mg - Labs Labs: 04/17/17 06:45 04/17/17 06:45 Attending/Attestation - Attestation I have personally seen and examined this patient.: Yes I have fully participated in the care of the patient.: Yes I have reviewed all pertinent clinical information, including history, physical exam and plan: Yes
--- NOTE | 2017-04-17 17:24 | CP.PCM.PN ---
Subjective - Date & Time of Evaluation Date of Evaluation: 04/17/17 Time of Evaluation: 12:00 - Subjective Subjective: Comfortable, much improved pain and swelling of the left leg, no fevers overnight. Objective - Vital Signs/Intake and Output Vital Signs (last 24 hours): Temp Pulse Resp BP Pulse Ox 98.5 F 74 20 161/65 H 95 04/16/17 17:47 04/16/17 17:47 04/16/17 17:47 04/16/17 17:47 04/16/17 17:47 Intake and Output: 04/17/17 04/17/17 06:59 18:59 Intake Total 280 Output Total 300 Balance -20 - Medications Medications: Current Medications Acetaminophen (Tylenol 325mg Tab) 650 mg PO Q4H PRN; Protocol PRN Reason: Pain, Mild (1-3) Last Admin: 04/16/17 21:26 Dose: 650 mg Amitriptyline HCl (Elavil) 25 mg PO HS NONI PRN Reason: Protocol Last Admin: 04/16/17 21:25 Dose: 25 mg Betamethasone/Clotrimazole (Lotrisone) 0 gm TOP DAILY NONI PRN Reason: Protocol Last Admin: 04/16/17 09:09 Dose: 1 dose Docusate Sodium (Colace) 100 mg PO BID NONI PRN Reason: Protocol Last Admin: 04/16/17 17:10 Dose: 100 mg Doxazosin Mesylate (Cardura) 2 mg PO HS NONI Last Admin: 04/16/17 21:25 Dose: 2 mg Doxycycline Hyclate (Doryx) 100 mg PO Q12 NONI PRN Reason: Protocol Stop: 04/20/17 22:01 Last Admin: 04/16/17 21:26 Dose: 100 mg Ferrous Sulfate (Feosol) 324 mg PO BID NONI Last Admin: 04/16/17 17:11 Dose: 324 mg Gabapentin (Neurontin) 300 mg PO HS NONI PRN Reason: Protocol Last Admin: 04/16/17 21:25 Dose: 300 mg Guaifenesin (Robitussin) 100 mg PO Q6H PRN; Protocol PRN Reason: Cough Last Admin: 04/16/17 21:26 Dose: 100 mg Insulin Human Regular (Humulin R Low) 0 units SC ACHS NONI PRN Reason: Protocol Last Admin: 04/17/17 06:31 Dose: Not Given Metformin HCl (Glucophage Xr) 750 mg PO DAILY [facility] Last Admin: 04/16/17 16:39 Dose: 750 mg Multivitamins (Thera Tab) 1 tab PO BID [facility] PRN Reason: Protocol Last Admin: 04/16/17 17:11 Dose: 1 tab (Calcium Citrate/Magnesium/D3 [ Calcium Citrate Chewable Wafer] 1 1 tab PO BID [facility] Last Admin: 04/16/17 17:10 Dose: 1 tab Non-Formulary Medication (Carvedilol [Coreg Cr]) 40 mg PO 0800 [facility] Last Admin: 04/17/17 08:53 Dose: 40 mg (Febuxostat [Uloric] (40 Mg)) 40 mg PO DAILY [facility] Last Admin: 04/16/17 09:03 Dose: 40 mg Polyethylene Glycol (Miralax) 17 gm PO BID NONI PRN Reason: Protocol Last Admin: 04/16/17 17:19 Dose: Not Given Silver Sulfadiazine (Silvadene 1% 25 Gm) 0 gm TP DAILY NONI PRN Reason: Protocol Last Admin: 04/16/17 09:08 Dose: 25 gm Valsartan (Diovan) 320 mg PO DAILY NONI PRN Reason: Protocol Last Admin: 04/16/17 09:03 Dose: 320 mg - Labs Labs: 04/17/17 06:45 04/17/17 06:45 - Constitutional Appears: Non-toxic - Head Exam Head Exam: NORMAL INSPECTION - Respiratory Exam Respiratory Exam: Decreased Breath Sounds - Cardiovascular Exam Cardiovascular Exam: +S1, +S2 - GI/Abdominal Exam GI & Abdominal Exam: Soft. absent: Tenderness Assessment and Plan - Assessment and Plan (Free Text) Plan: Assessment left leg ulcer with associated cellulitis, improving clinically monoclonal gammopathy with undetermined significance DM HTN Plan Continue Doxycycline for another 4 days and will monitor clinically
[2017-04-18] MEDS: Insulin Reg-LOW-Coverage SC SCH ×4 (06:29→21:57)
[2017-04-18 09:00] LABS: HEMOGLOBIN 10.2 g/dL (12.0-16.0); MEAN CELL VOLUME 91.2 fl (80.0-105.0); MEAN CORPUSCULAR HEMOGLOBIN 29.8 pg (25.0-35.0); MEAN CORPUSCULAR HGB CONC 32.7 g/dl (31.0-37.0); RBC 3.42 10^6/uL (3.5-6.1); RED CELL DISTRIBUTION WIDTH 12.9 % (11.5-14.5); WHITE BLOOD COUNT 5.8 10^3/ul (4.5-11.0)
[2017-04-18 09:13] LABS: ALB/GLOB RATIO 1.4 (1.1-1.8); ALBUMIN 3.5 g/dL (3.0-4.8); CALCIUM 9.2 mg/dL (8.4-10.5)
--- NOTE | 2017-04-18 09:15 | CP.PCM.PN ---
<GeorgesLoretta - Last Filed: 04/18/17 09:11> Subjective - Date & Time of Evaluation Date of Evaluation: 04/18/17 Time of Evaluation: 09:11 - Subjective Subjective: Progress note for attending, Dr. Metz 76 year old female seen this morning in TCU for bilateral venous stasis dermatitis to both lower extremities and superficial ulceration to right posterior leg. Patient is AAO x 3 and NAD. She is laying in bed at the time of visit. She states that she wore the MIKAELA wraps yesterday and has them removed last night before bed. Denies any acute overnight events. Denies N/V/F/C/CP/SOB /D/Calf Pain Objective - Vital Signs/Intake and Output Vital Signs (last 24 hours): Temp Pulse Resp BP Pulse Ox 98.2 F 71 18 174/75 H 95 04/17/17 10:00 04/17/17 10:00 04/17/17 10:00 04/17/17 10:00 04/16/17 17:47 - Medications Medications: Current Medications Acetaminophen (Tylenol 325mg Tab) 650 mg PO Q4H PRN; Protocol PRN Reason: Pain, Mild (1-3) Last Admin: 04/17/17 17:39 Dose: 650 mg Amitriptyline HCl (Elavil) 25 mg PO HS NONI PRN Reason: Protocol Last Admin: 04/17/17 21:46 Dose: 25 mg Betamethasone/Clotrimazole (Lotrisone) 0 gm TOP DAILY NONI PRN Reason: Protocol Last Admin: 04/17/17 11:00 Dose: 1 dose Docusate Sodium (Colace) 100 mg PO BID NONI PRN Reason: Protocol Last Admin: 04/17/17 17:35 Dose: 100 mg Doxazosin Mesylate (Cardura) 2 mg PO HS NONI Last Admin: 04/17/17 21:46 Dose: 2 mg Doxycycline Hyclate (Doryx) 100 mg PO Q12 NONI PRN Reason: Protocol Stop: 04/20/17 22:01 Last Admin: 04/17/17 21:46 Dose: 100 mg Ferrous Sulfate (Feosol) 324 mg PO BID NONI Last Admin: 04/17/17 17:36 Dose: 324 mg Gabapentin (Neurontin) 300 mg PO HS NONI PRN Reason: Protocol Last Admin: 04/17/17 21:47 Dose: 300 mg Guaifenesin (Robitussin) 100 mg PO Q6H PRN; Protocol PRN Reason: Cough Last Admin: 04/17/17 11:24 Dose: 100 mg Insulin Human Regular (Humulin R Low) 0 units SC ACHS [facility] PRN Reason: Protocol Last Admin: 04/18/17 06:29 Dose: Not Given Metformin HCl (Glucophage Xr) 750 mg PO DAILY [facility] Last Admin: 04/17/17 11:00 Dose: 750 mg Multivitamins (Thera Tab) 1 tab PO BID [facility] PRN Reason: Protocol Last Admin: 04/17/17 17:39 Dose: 1 tab (Calcium Citrate/Magnesium/D3 [ Calcium Citrate Chewable Wafer] 1 1 tab PO BID [facility] Last Admin: 04/17/17 17:34 Dose: 1 tab Non-Formulary Medication (Carvedilol [Coreg Cr]) 40 mg PO 0800 [facility] Last Admin: 04/17/17 08:53 Dose: 40 mg (Febuxostat [Uloric] (40 Mg)) 40 mg PO DAILY [facility] Last Admin: 04/17/17 11:00 Dose: 40 mg Polyethylene Glycol (Miralax) 17 gm PO BID [facility] PRN Reason: Protocol Last Admin: 04/17/17 17:38 Dose: 17 gm Silver Sulfadiazine (Silvadene 1% 25 Gm) 0 gm TP DAILY [facility] PRN Reason: Protocol Last Admin: 04/17/17 11:00 Dose: 1 gm Valsartan (Diovan) 320 mg PO DAILY [facility] PRN Reason: Protocol Last Admin: 04/17/17 11:00 Dose: 320 mg - Labs Labs: 04/18/17 08:00 04/17/17 06:45 - Constitutional Appears: Well, Non-toxic, No Acute Distress - Extremities Exam Additional comments: Lower extremity focused exam: Vasc: DP and PT non-palpable secondary to edema B/L, skin temperature warm to cool from proximal to distal B/L. CFT < 3 seconds, +2 pitting edema noted to LE B/L Ortho: no pain on palpation to the LE Neuro: gross and protective sensation diminished Derm: Left leg lateral aspect superficial ulceration appears to be healing at this time with epithelialized tissue forming over wound bed. Superficial ulceration noted to posterior right leg with granular base, no probe to bone, no tunneling, no malodor, no fluctuance. Mild erythematous changes noted to bilateral LE (resolving), most likely secondary to venous stasis dermatitis. - Neurological Exam Neurological Exam: Alert, Awake, Oriented x3 - Psychiatric Exam Psychiatric exam: Normal Affect, Normal Mood Assessment and Plan - Assessment and Plan (Free Text) Assessment: 76 year old female seen at bedside for bilateral venous stasis dermatitis to her LE and superficial ulceration to right posterior leg Plan: Patient seen and evaluated at bedside Discussed plan with attending Dr. Metz Labs and vitals reviewed- afebrile, WBC 5.8 Wound cx final of left leg shows no growth LE US B/L: No evidence of DVT Tib/fib xray: Normal radiograph Right leg superficial ulceration dressed with Optifoam Lotrisone applied to venous stasis dermatitis changes MIKAELA bandages applied in venous wrap fashion for compression therapy - to be removed at night and reapplied in AM daily Podiatry will continue to follow while patient in house <Jorge Metz - Last Filed: 04/21/17 11:35> Objective - Vital Signs/Intake and Output Vital Signs (last 24 hours): Temp Pulse Resp BP Pulse Ox 98.6 F 64 16 156/60 H 97 04/20/17 10:00 04/20/17 10:00 04/20/17 10:00 04/20/17 10:00 04/19/17 18:13 Intake and Output: 04/21/17 04/21/17 06:59 18:59 Intake Total 80 Balance 80 - Medications Medications: Current Medications Acetaminophen (Tylenol 325mg Tab) 650 mg PO Q4H PRN; Protocol PRN Reason: Pain, Mild (1-3) Last Admin: 04/21/17 06:44 Dose: 650 mg Amitriptyline HCl (Elavil) 25 mg PO HS NONI PRN Reason: Protocol Last Admin: 04/20/17 21:32 Dose: 25 mg Betamethasone/Clotrimazole (Lotrisone) 0 gm TOP DAILY NONI PRN Reason: Protocol Last Admin: 04/21/17 09:16 Dose: 1 dose Docusate Sodium (Colace) 100 mg PO BID NONI PRN Reason: Protocol Last Admin: 04/21/17 09:14 Dose: 100 mg Doxazosin Mesylate (Cardura) 2 mg PO HS NONI Last Admin: 04/20/17 21:32 Dose: 2 mg Ferrous Sulfate (Feosol) 324 mg PO BID [facility] Last Admin: 04/21/17 09:16 Dose: 324 mg Gabapentin (Neurontin) 300 mg PO HS NONI PRN Reason: Protocol Last Admin: 04/20/17 21:32 Dose: 300 mg Guaifenesin (Robitussin) 100 mg PO Q6H PRN; Protocol PRN Reason: Cough Last Admin: 04/17/17 11:24 Dose: 100 mg Insulin Human Regular (Humulin R Low) 0 units SC ACHS NONI PRN Reason: Protocol Last Admin: 04/21/17 06:56 Dose: Not Given Lidocaine (Lidoderm) 1 ea TD DAILY [facility] Last Admin: 04/21/17 09:16 Dose: 1 ea Metformin HCl (Glucophage Xr) 750 mg PO DAILY [facility] Last Admin: 04/21/17 09:16 Dose: 750 mg Multivitamins (Thera Tab) 1 tab PO BID [facility] PRN Reason: Protocol Last Admin: 04/21/17 09:17 Dose: 1 tab (Calcium Citrate/Magnesium/D3 [ Calcium Citrate Chewable Wafer] 1 1 tab PO BID [facility] Last Admin: 04/21/17 09:58 Dose: 1 tab Non-Formulary Medication (Carvedilol [Coreg Cr]) 40 mg PO 0800 [facility] Last Admin: 04/21/17 08:57 Dose: 40 mg (Febuxostat [Uloric] (40 Mg)) 40 mg PO DAILY [facility] Last Admin: 04/21/17 09:15 Dose: 40 mg Oxycodone HCl (Oxycodone Immediate Release Tab) 5 mg PO Q6H PRN PRN Reason: Pain, severe (8-10) Last Admin: 04/20/17 18:27 Dose: 5 mg Polyethylene Glycol (Miralax) 17 gm PO BID [facility]I PRN Reason: Protocol Last Admin: 04/21/17 09:16 Dose: 17 gm Silver Sulfadiazine (Silvadene 1% 25 Gm) 0 gm TP DAILY [facility] PRN Reason: Protocol Last Admin: 04/21/17 09:17 Dose: 1 gm Valsartan (Diovan) 320 mg PO DAILY [facility]I PRN Reason: Protocol Last Admin: 04/21/17 09:15 Dose: 320 mg - Labs Labs: 04/21/17 08:30 04/21/17 08:30 Attending/Attestation - Attestation I have personally seen and examined this patient.: Yes I have fully participated in the care of the patient.: Yes I have reviewed all pertinent clinical information, including history, physical exam and plan: Yes
[2017-04-18] MEDS: Non Formulary Medication (Carvedilol [Coreg Cr] 40 MG) PO SCH (09:44)
[2017-04-18] MEDS: D3 PO SCH ×2 (10:06→17:45)
[2017-04-18] MEDS: MAGNESIUM PO SCH ×2 (10:06→17:45)
[2017-04-18] MEDS: CALCIUM CITRATE PO SCH ×2 (10:06→17:45)
[2017-04-18] MEDS: Silver Sulfadiazine 1% Cream (25 gm) TP SCH (10:08)
[2017-04-18] MEDS: POLYETHYLENE GLYCOL 3350 17 GM/Dose PACKET PO SCH ×2 (10:08→17:43)
[2017-04-18] MEDS: Clotrimazole/Betamethasone Cream(15 gm) TOP SCH (10:08)
[2017-04-18] MEDS: Multivitamin Therapeutic Tab PO SCH ×2 (10:08→17:46)
[2017-04-18] MEDS: Lidocaine 5% Patch TD SCH (15:45)
[2017-04-18] MEDS: oxyCODONE 5 mg Immediate Release Tab PO PRN (17:47)
--- NOTE | 2017-04-18 19:59 | PN ---
DATE: 04/18/2017 SUBJECTIVE: The patient is seen sitting in chair. She is awake. She is alert. She is comfortable. She denies any pain. She denies any shortness of breath. She is doing Physical Therapy. PHYSICAL EXAMINATION: GENERAL: Obese elderly lady sitting in chair. VITAL SIGNS: Have been charted today. NECK: Supple, no JVD. LUNGS: Bilateral equal air entry, bilateral equal expansion, no rales. CARDIAC: S1 and S2, regular rate and rhythm, no murmur, no rub. ABDOMEN: Obese, distended, soft, nontender, bowel sounds present. EXTREMITIES: Jarad bandage wrap of both lower extremities. LABORATORY DATA: WBC 5.8, hemoglobin 10, hematocrit 31, platelets 217. Sodium 141, potassium 4.1, chloride 106, CO2 26, BUN 30, creatinine 1.4, glucose 148, calcium 9.2, AST 23, ALT 29. CURRENT MEDICATIONS: Uloric, Cardura, Coreg CR, Colace, Diovan 320, doxycycline 100 q. 12, Elavil, Feosol, metformin XR 750, insulin, Lotrisone, MiraLax, Neurontin, guaifenesin, Robitussin, Silvadene, and Theraflu. ASSESSMENT AND PLAN: 1. Cellulitis of the lower extremities, improving. Continue antibiotics. 2. Acute kidney injury, resolved. 3. Underlying chronic kidney disease stage III. 4. Morbid obesity. 5. Severe hypertension. 6. [id number] diabetes mellitus. PLAN: 1. Continue antibiotics. 2. Continue metformin. 3. Continue current antihypertensives. 4. Avoid nephrotoxins. 5. Continue physical therapy. Alyson Bateman MD
--- NOTE | 2017-04-18 21:22 | PN ---
DATE: 04/18/2017 This is [facility]'s [facility] visit on TCU. For Dr. Littlejohn. SUBJECTIVE: The patient is a 76-year-old female, seen sitting up in a chair with her son at the bedside. Complaining of left lower back pain for which she was to get an epidural injection by Dr. Hernandez, Pain Food Safety Officer yesterday, was however, the appointment was canceled. We will ask for a consult as indicated. Otherwise in interim, the patient reports that she is not able to take the tramadol due to conflict with other medications she is taking. With this, we will ask for a trial of a low-dose of narcotic analgesic to see if this may be acceptable for her severe pain. With this, the patient is otherwise responding to antibiotics with slow improvement of her severe cellulitis for her lower extremities with continuation of her present medical regimen. She is participating with TCU protocol as best as possible. OBJECTIVE/PHYSICAL EXAM: VITAL SIGNS: Temperature 98.2, pulse 71, respirations 18, blood pressure 174/75, and pulse ox of 95%. HEENT: Unremarkable. NECK: Supple. HEART: Regular rate. LUNGS: Clear. ABDOMEN: Obese, soft, nontender. EXTREMITIES: Venous stasis dermatitis with superficial ulceration with modest improvements since previous visits. Dressings are dry and intact, removed at night and reapplied in the morning as per Dr. Metz's recommendations. NEUROLOGIC: Awake, alert and oriented. SKIN: Otherwise warm and dry except as above. LABORATORY DATA: The patient's labs were done. White blood cell count of 5.8, hemoglobin of 10.2, hematocrit of 31.2, platelet count of 217,000 with a chem metabolic panel showing a BUN of 30, creatinine of 1.4, which the patient is being followed by Dr. Bateman, Renal Food Safety Officer. ASSESSMENT: For this patient is that of left lower extremity ulcer with cellulitis, monoclonal gammopathy of unknown significance, diabetes mellitus, hypertension, obesity, anemia of chronic disease, questionable iron-deficiency anemia. The patient did have testing while on the medical floor with her iron saturation of 10% on 04/11/2017. PLAN: For this patient after conversation with Dr. Littlejohn is to consult with Dr. Hernandez, Pain Food Safety Officer. We will give a trial of low-dose oxycodone, see if this will help her pain in the interim along with Lidoderm patch. The patient's labs will be monitored in the morning. Prognosis for this patient is guarded. She will continue with her reconditioning as indicated with antibiotics also to continue. The patient was seen with a comprehensive medically necessary and appropriate exam carried out at the bedside, with her questions answered to her satisfaction with followup in the morning. Clovis Watters MD
--- NOTE | 2017-04-19 01:14 | PN ---
DATE: 04/18/2017 SUBJECTIVE: The patient is in bed, seen early this morning, in room 313. No fevers. No chills. No nausea. PHYSICAL EXAMINATION: VITAL SIGNS: Temperature is 98, blood pressure is 120/70, respiratory rate of 16. HEENT: Unremarkable. NECK: Supple. LUNGS: Have decreased breath sounds. HEART: Normal S1 and S2. ABDOMEN: Soft. EXTREMITIES: Lower extremity is noted, much improved. LABORATORY DATA: Reveals a white count of 5.8. BUN of 30 and creatinine of 1.4. Microbiology is noted. ASSESSMENT AND PLAN: This is a 76-year-old female with left leg ulcer and cellulitis improving with history of monoclonal gammopathy of undetermined significance and diabetes mellitus, hypertension, with doxycycline at this point x3 more days. Review of orders reveals the patient to be on doxycycline. We will follow closely with you. Rinku Yoon MD
[2017-04-19] MEDS: Insulin Reg-LOW-Coverage SC SCH ×4 (06:46→22:50)
[2017-04-19 07:00] LABS: BASO # 0.04 K/mm3 (0.0-2.0); BASO % 0.8 % (0.0-3.0); EOS # 0.2 (0.0-0.7); EOS % 3.8 % (1.5-5.0); GRAN # 2.39 (1.4-6.5); GRAN % 48.2 % (50.0-68.0); HEMOGLOBIN 9.3 g/dL (12.0-16.0); LYMPH # 1.7 (1.2-3.4); LYMPH % 35.1 % (22.0-35.0); MEAN CELL VOLUME 91.2 fl (80.0-105.0); MEAN CORPUSCULAR HEMOGLOBIN 30.4 pg (25.0-35.0); MEAN CORPUSCULAR HGB CONC 33.3 g/dl (31.0-37.0); MEAN PLATELET VOLUME 9.1 fl (7.0-11.0); MONO # 0.6 (0.1-0.6); MONO % 12.1 % (1.0-6.0); RBC 3.06 10^6/uL (3.5-6.1)
[2017-04-19 07:06] LABS: ALBUMIN 3.1 g/dL (3.0-4.8); CALCIUM 9.2 mg/dL (8.4-10.5)
[2017-04-19 07:20] LABS: ALB/GLOB RATIO 1.3 (1.1-1.8)
[2017-04-19] MEDS: Non Formulary Medication (Carvedilol [Coreg Cr] 40 MG) PO SCH (08:11)
[2017-04-19] MEDS: MAGNESIUM PO SCH ×2 (11:27→17:46)
[2017-04-19] MEDS: D3 PO SCH ×2 (11:27→17:46)
[2017-04-19] MEDS: CALCIUM CITRATE PO SCH ×2 (11:27→17:46)
[2017-04-19] MEDS: Lidocaine 5% Patch TD SCH (11:27)
[2017-04-19] MEDS: POLYETHYLENE GLYCOL 3350 17 GM/Dose PACKET PO SCH ×2 (11:34→17:46)
[2017-04-19] MEDS: Clotrimazole/Betamethasone Cream(15 gm) TOP SCH (11:34)
[2017-04-19] MEDS: Multivitamin Therapeutic Tab PO SCH ×2 (11:36→17:48)
[2017-04-19] MEDS: Silver Sulfadiazine 1% Cream (25 gm) TP SCH (11:36)
[2017-04-19 18:14] VITALS: O2SAT 97
--- NOTE | 2017-04-19 20:58 | PN ---
DATE: 04/19/2017 This is [facility] visit for Dr. Littlejohn. SUBJECTIVE: The patient is a 76-year-old female, seen sitting up in a chair with a walker at the bedside, for which she was advised to ambulate with minimal assist at this point. She reports that her low back pain is now modestly improved after a trial of oxycodone yesterday with the Lidoderm patch also applied, with the patient now being told that she may take the Tylenol with the oxycodone should it be necessary together she has better relief. At this point, individual oxycodone and individual Tylenol doses may be given. With this, the patient also noted to have seen Dr. Yoon, Infectious Disease change consultant, who recommends four more days of doxycycline orally with the patient to continue on TCU until discharge in approximately two to three days time as per her insurance company. With this, the patient is otherwise in no acute distress OBJECTIVE/PHYSICAL EXAMINATION: VITAL SIGNS: Temperature 98.2, pulse 69, respirations 18, blood pressure 134/58, and pulse oximetry is 95%. HEENT: Unremarkable. NECK: Supple. HEART: Regular rate. LUNGS: Clear. ABDOMEN: Obese, soft, nontender. EXTREMITIES: Dressed with the patient reporting superficial ulceration with blister on the right side persisting, otherwise her venous stasis dermatitic changes are modestly being improved as well as her cellulitis there, with faint +1 edema noted. SKIN: Otherwise warm, dry and clear. NEUROLOGIC: Awake, alert and oriented x3. The patient ambulates with a walker. LABORATORY DATA: The patient's labs were done. White blood cell count of 5.3, hemoglobin of 9.3, hematocrit 27.9, platelet count of 194,000. Her chem metabolic panel showing a BUN of 32, creatinine of 1.4, nonfasting glucose of 190. ASSESSMENT: For this patient is that of lower extremity ulcer with cellulitis, MGUS (monoclonal gammopathy of unknown significance), diabetes mellitus, hypertension, obesity, anemia of chronic disease, chronic kidney disease. The patient did have a hemoglobin A1c done on 04/13/2017, noted to be 6.9. PLAN: For this patient after conversation with Dr. Littlejohn is to continue with present medical regimen with reconditioning. The patient is also to continue p.o. iron with oxycodone for her severe pain, with follow up with Dr. Hernandez, pain change consultant, once she is discharged for injection for her severe pain as this appointment had to be canceled as she was hospitalized. We will also change her diet to consistent carbohydrate diet with heart healthy regime. This is a complex patient with a comprehensive medically necessary and appropriate visit carried out at the bedside in excess of 25 minutes [id number] time with the patient today with medicine changes and questions answered to her satisfaction. Clovis Watters MD
--- NOTE | 2017-04-20 02:26 | PN ---
DATE: 04/19/2017 SUBJECTIVE: The patient is in bed in no acute distress, nontoxic. PHYSICAL EXAMINATION VITAL SIGNS: Temperature is 97, blood pressure is 180/70, respiratory rate of 18 and heart rate 61. HEENT: Unremarkable. NECK: Supple. LUNGS: Have decreased breath sounds. HEART: Normal S1 and S2. ABDOMEN: Soft and nontender. EXTREMITIES: Examination of the leg revealed the patient's leg is much improved. LABORATORY DATA: White count 5.0 and hemoglobin of 9. Creatinine is 1.4. Review of orders reveals the patient on p.o. doxycycline. ASSESSMENT AND PLAN: This is a 76-year-old with left leg ulcer and cellulitis improved, monoclonal gammopathy, diabetes and hypertension. Doxycycline for two more days. Follow closely with you. Rinku Yoon MD
[2017-04-20] MEDS: Insulin Reg-LOW-Coverage SC SCH ×4 (06:51→22:03)
[2017-04-20 07:18] LABS: BASO # 0.02 K/mm3 (0.0-2.0); BASO % 0.3 % (0.0-3.0); EOS # 0.2 (0.0-0.7); GRAN # 3.27 (1.4-6.5); GRAN % 56.7 % (50.0-68.0); LYMPH # 1.8 (1.2-3.4); LYMPH % 31.8 % (22.0-35.0); MEAN CELL VOLUME 90.3 fl (80.0-105.0); MEAN CORPUSCULAR HEMOGLOBIN 30.2 pg (25.0-35.0); MEAN CORPUSCULAR HGB CONC 33.4 g/dl (31.0-37.0); MEAN PLATELET VOLUME 8.8 fl (7.0-11.0); MONO # 0.5 (0.1-0.6); MONO % 8.2 % (1.0-6.0); RBC 3.31 10^6/uL (3.5-6.1); RED CELL DISTRIBUTION WIDTH 12.8 % (11.5-14.5); WHITE BLOOD COUNT 5.8 10^3/ul (4.5-11.0)
[2017-04-20 07:45] LABS: ALB/GLOB RATIO 1.2 (1.1-1.8); ALBUMIN 3.2 g/dL (3.0-4.8); CALCIUM 9.2 mg/dL (8.4-10.5)
[2017-04-20] MEDS: Non Formulary Medication (Carvedilol [Coreg Cr] 40 MG) PO SCH (08:33)
--- NOTE | 2017-04-20 08:46 | PN ---
DATE: 04/17/2017 SUBJECTIVE: The patient is seen sitting in chair. She is awake. She is alert. She is comfortable. She denies any pain. She denies any shortness of breath. She denies any chest tightness. PHYSICAL EXAMINATION: GENERAL: Morbidly obese, elderly lady sitting in chair. VITAL SIGNS: Blood pressure 161/65, heart rate 74, respiratory rate 20, and temperature 98.5. HEENT: Normocephalic and atraumatic. Positive pallor. NECK: Supple. No JVD. LUNGS: Bilateral equal air entry. No rales. CARDIAC: S1 and S2. Regular rate and rhythm. No murmur. No rub. ABDOMEN: Obese, distended, soft, nontender, and bowel sounds present. EXTREMITIES: Jarad bandage in both lower extremities. LABORATORY DATA: Hemoglobin 9.8 and creatinine 1.6. CURRENT MEDICATIONS: List reviewed. ASSESSMENT: 1. Resolved acute kidney injury. 2. Stable chronic kidney disease stage III/IV. 3. [id number] diabetes mellitus, metformin restarted. 4. Hypertension fair control. 5. Cellulitis, continue antibiotics. 6. Anemia with low iron stores, continue oral iron. Alyson Bateman MD
[2017-04-20] MEDS: MAGNESIUM PO SCH ×2 (10:11→18:14)
[2017-04-20] MEDS: D3 PO SCH ×2 (10:11→18:14)
[2017-04-20] MEDS: CALCIUM CITRATE PO SCH ×2 (10:11→18:14)
[2017-04-20] MEDS: Lidocaine 5% Patch TD SCH (10:13)
[2017-04-20] MEDS: Multivitamin Therapeutic Tab PO SCH ×2 (10:14→18:16)
[2017-04-20] MEDS: POLYETHYLENE GLYCOL 3350 17 GM/Dose PACKET PO SCH ×2 (10:14→18:16)
[2017-04-20] MEDS: Clotrimazole/Betamethasone Cream(15 gm) TOP SCH (10:14)
[2017-04-20] MEDS: Silver Sulfadiazine 1% Cream (25 gm) TP SCH (10:14)
--- NOTE | 2017-04-20 10:42 | CP.PCM.PN ---
Subjective - Date & Time of Evaluation Date of Evaluation: 04/20/17 Time of Evaluation: 10:39 - Subjective Subjective: Patient seem and examined at bedside. Patient doing well overnight with no events. Last bowel movement yesterday. Lower extremity leg pain improved, swelling improved. Denies chest pain, shortness of breath, nausea, vomiting, diarrhea, fever, chills. Objective - Vital Signs/Intake and Output Vital Signs (last 24 hours): Temp Pulse Resp BP Pulse Ox 97.2 F L 60 18 189/75 H 97 04/19/17 18:13 04/19/17 18:13 04/19/17 18:13 04/19/17 18:13 04/19/17 18:13 Intake and Output: 04/20/17 04/20/17 06:59 18:59 Intake Total 360 Output Total 375 Balance -15 - Medications Medications: Current Medications Acetaminophen (Tylenol 325mg Tab) 650 mg PO Q4H PRN; Protocol PRN Reason: Pain, Mild (1-3) Last Admin: 04/20/17 06:14 Dose: 650 mg Amitriptyline HCl (Elavil) 25 mg PO HS [facility] PRN Reason: Protocol Last Admin: 04/19/17 21:48 Dose: 25 mg Betamethasone/Clotrimazole (Lotrisone) 0 gm TOP DAILY NONI PRN Reason: Protocol Last Admin: 04/20/17 10:14 Dose: 1 dose Docusate Sodium (Colace) 100 mg PO BID NONI PRN Reason: Protocol Last Admin: 04/20/17 10:12 Dose: Not Given Doxazosin Mesylate (Cardura) 2 mg PO HS [facility] Last Admin: 04/19/17 21:48 Dose: 2 mg Doxycycline Hyclate (Doryx) 100 mg PO Q12 NONI PRN Reason: Protocol Stop: 04/20/17 22:01 Last Admin: 04/20/17 10:12 Dose: 100 mg Ferrous Sulfate (Feosol) 324 mg PO BID [facility] Last Admin: 04/20/17 10:13 Dose: 324 mg Gabapentin (Neurontin) 300 mg PO HS [facility] PRN Reason: Protocol Last Admin: 04/19/17 21:48 Dose: 300 mg Guaifenesin (Robitussin) 100 mg PO Q6H PRN; Protocol PRN Reason: Cough Last Admin: 04/17/17 11:24 Dose: 100 mg Insulin Human Regular (Humulin R Low) 0 units SC ACHS [facility] PRN Reason: Protocol Last Admin: 04/20/17 06:51 Dose: Not Given Lidocaine (Lidoderm) 1 ea TD DAILY [facility] Last Admin: 04/20/17 10:13 Dose: 1 ea Metformin HCl (Glucophage Xr) 750 mg PO DAILY [facility] Last Admin: 04/20/17 10:13 Dose: 750 mg Multivitamins (Thera Tab) 1 tab PO BID [facility] PRN Reason: Protocol Last Admin: 04/20/17 10:14 Dose: 1 tab (Calcium Citrate/Magnesium/D3 [ Calcium Citrate Chewable Wafer] 1 1 tab PO BID [facility] Last Admin: 04/20/17 10:11 Dose: 1 tab Non-Formulary Medication (Carvedilol [Coreg Cr]) 40 mg PO 0800 [facility] Last Admin: 04/20/17 08:33 Dose: 40 mg (Febuxostat [Uloric] (40 Mg)) 40 mg PO DAILY [facility] Last Admin: 04/20/17 10:13 Dose: 40 mg Oxycodone HCl (Oxycodone Immediate Release Tab) 5 mg PO Q6H PRN PRN Reason: Pain, severe (8-10) Last Admin: 04/18/17 17:47 Dose: 5 mg Polyethylene Glycol (Miralax) 17 gm PO BID [facility] PRN Reason: Protocol Last Admin: 04/20/17 10:14 Dose: Not Given Silver Sulfadiazine (Silvadene 1% 25 Gm) 0 gm TP DAILY [facility] PRN Reason: Protocol Last Admin: 04/20/17 10:14 Dose: Not Given Valsartan (Diovan) 320 mg PO DAILY [facility] PRN Reason: Protocol Last Admin: 04/20/17 10:12 Dose: 320 mg - Labs Labs: 04/20/17 06:45 04/20/17 06:45 - Constitutional Appears: Non-toxic, No Acute Distress - Head Exam Head Exam: ATRAUMATIC, NORMAL INSPECTION, NORMOCEPHALIC - ENT Exam ENT Exam: Mucous Membranes Moist - Respiratory Exam Respiratory Exam: Clear to Ausculation Bilateral, NORMAL BREATHING PATTERN - Cardiovascular Exam Cardiovascular Exam: RRR, +S1, +S2 - GI/Abdominal Exam GI & Abdominal Exam: Soft, Normal Bowel Sounds. absent: Tenderness - Extremities Exam Extremities Exam: Pedal Edema (At baseline). absent: Calf Tenderness Additional comments: Right leg wound bandaged. Clean, dry, and intact. - Neurological Exam Neurological Exam: Alert, Awake, Oriented x3 - Psychiatric Exam Psychiatric exam: Normal Affect, Normal Mood - Skin Skin Exam: Erythema (Lower extremities, improving ), Intact, Warm Assessment and Plan - Assessment and Plan (Free Text) Plan: 76 y/o woman with past medical history of anemia, MGUS, DM, HTN, CKD, and lower back pain presenting with RLE cellulitis and deconditioning. Patient was previously on IV Merrem and Zyvox, but has now been changed to oral Doxycycline. Patient will require 1 more day of Doxycycline to complete full course. Patient with improved swelling and erythema in lower extremities. Patient with chronic kidney disease, with stable creatinine. Patient continuing to work with physical therapy. Will continue current medical regimen. Patient is anticipated to be discharged in 2 days. Plan discussed with Dr. Littlejohn. Sybil, PGY-2
--- NOTE | 2017-04-20 13:15 | CP.PCM.PN ---
Subjective - Date & Time of Evaluation Date of Evaluation: 04/20/17 Time of Evaluation: 13:13 - Subjective Subjective: Podiatry Progress Note - Dr. Tomas 76 y/o female seen this morning in TCU for bilateral venous stasis dermatitis to both lower extremities and superficial ulceration to right posterior leg. Patient is AAO x 3 and NAD. She is seated in bedside chair at time of visit. She states that she has been tolerating the MIKAELA compression wraps well. Admits to doing physical therapy after she is seen by us daily and has her legs wrapped. Denies any acute overnight events. Denies F/C/N/V/CP/SOB/calf pain Objective - Vital Signs/Intake and Output Vital Signs (last 24 hours): Temp Pulse Resp BP Pulse Ox 97.2 F L 60 18 189/75 H 97 04/19/17 18:13 04/19/17 18:13 04/19/17 18:13 04/19/17 18:13 04/19/17 18:13 Intake and Output: 04/20/17 04/20/17 06:59 18:59 Intake Total 360 Output Total 375 Balance -15 - Medications Medications: Current Medications Acetaminophen (Tylenol 325mg Tab) 650 mg PO Q4H PRN; Protocol PRN Reason: Pain, Mild (1-3) Last Admin: 04/20/17 06:14 Dose: 650 mg Amitriptyline HCl (Elavil) 25 mg PO HS [facility] PRN Reason: Protocol Last Admin: 04/19/17 21:48 Dose: 25 mg Betamethasone/Clotrimazole (Lotrisone) 0 gm TOP DAILY [facility] PRN Reason: Protocol Last Admin: 04/20/17 10:14 Dose: 1 dose Docusate Sodium (Colace) 100 mg PO BID [facility] PRN Reason: Protocol Last Admin: 04/20/17 10:12 Dose: Not Given Doxazosin Mesylate (Cardura) 2 mg PO HS [facility] Last Admin: 04/19/17 21:48 Dose: 2 mg Doxycycline Hyclate (Doryx) 100 mg PO Q12 NONI PRN Reason: Protocol Stop: 04/20/17 22:01 Last Admin: 04/20/17 10:12 Dose: 100 mg Ferrous Sulfate (Feosol) 324 mg PO BID [facility] Last Admin: 04/20/17 10:13 Dose: 324 mg Gabapentin (Neurontin) 300 mg PO HS [facility] PRN Reason: Protocol Last Admin: 04/19/17 21:48 Dose: 300 mg Guaifenesin (Robitussin) 100 mg PO Q6H PRN; Protocol PRN Reason: Cough Last Admin: 04/17/17 11:24 Dose: 100 mg Insulin Human Regular (Humulin R Low) 0 units SC ACHS NONI PRN Reason: Protocol Last Admin: 04/20/17 12:30 Dose: Not Given Lidocaine (Lidoderm) 1 ea TD DAILY [facility] Last Admin: 04/20/17 10:13 Dose: 1 ea Metformin HCl (Glucophage Xr) 750 mg PO DAILY [facility] Last Admin: 04/20/17 10:13 Dose: 750 mg Multivitamins (Thera Tab) 1 tab PO BID [facility]I PRN Reason: Protocol Last Admin: 04/20/17 10:14 Dose: 1 tab (Calcium Citrate/Magnesium/D3 [ Calcium Citrate Chewable Wafer] 1 1 tab PO BID [facility] Last Admin: 04/20/17 10:11 Dose: 1 tab Non-Formulary Medication (Carvedilol [Coreg Cr]) 40 mg PO 0800 [facility] Last Admin: 04/20/17 08:33 Dose: 40 mg (Febuxostat [Uloric] (40 Mg)) 40 mg PO DAILY [facility] Last Admin: 04/20/17 10:13 Dose: 40 mg Oxycodone HCl (Oxycodone Immediate Release Tab) 5 mg PO Q6H PRN PRN Reason: Pain, severe (8-10) Last Admin: 04/18/17 17:47 Dose: 5 mg Polyethylene Glycol (Miralax) 17 gm PO BID [facility] PRN Reason: Protocol Last Admin: 04/20/17 10:14 Dose: Not Given Silver Sulfadiazine (Silvadene 1% 25 Gm) 0 gm TP DAILY [facility] PRN Reason: Protocol Last Admin: 04/20/17 10:14 Dose: Not Given Valsartan (Diovan) 320 mg PO DAILY [facility] PRN Reason: Protocol Last Admin: 04/20/17 10:12 Dose: 320 mg - Labs Labs: 04/20/17 06:45 04/20/17 06:45 - Constitutional Appears: Well, Non-toxic, No Acute Distress - Extremities Exam Additional comments: Lower extremity focused exam: Vasc: DP and PT non-palpable secondary to edema B/L, skin temperature warm to cool from proximal to distal B/L. CFT < 3 seconds. +2 pitting edema noted to LE B/L, improving since admission Ortho: no pain on palpation to the LE Neuro: gross and protective sensation diminished Derm: Left leg lateral aspect superficial ulceration fully healed at this time. Superficial ulceration noted to posterior right leg with granular base, no probe to bone, no tunneling, no malodor, no fluctuance. Improving since admission. Mild erythematous changes noted to bilateral LE (resolving), most likely secondary to venous stasis dermatitis. - Neurological Exam Neurological Exam: Alert, Awake, Oriented x3 - Psychiatric Exam Psychiatric exam: Normal Affect, Normal Mood Assessment and Plan - Assessment and Plan (Free Text) Assessment: 76 year old female seen at bedside for bilateral venous stasis dermatitis to her LE and superficial ulceration to right posterior leg Plan: Patient seen and evaluated at bedside Discussed plan with attending Dr. Tomas Labs and vitals reviewed- afebrile, WBC 5.8 Wound cx final of left leg shows no growth LE US B/L: No evidence of DVT Tib/fib xray: Normal radiograph Right leg superficial ulceration cleansed with saline and dressed with Optifoam Lotrisone applied to venous stasis dermatitis changes MIKAELA bandages applied in venous wrap fashion for compression therapy - to be removed at night and reapplied in AM daily Podiatry will continue to follow while patient in house Upon discharge, patient to follow up in wound care center with Dr. Tomas
[2017-04-20 17:17] VITALS: BP 156/60; PULSE 64; RESP 16; TEMP 98.6
[2017-04-20] MEDS: oxyCODONE 5 mg Immediate Release Tab PO PRN (18:27)
--- NOTE | 2017-04-20 19:10 | CP.PCM.PN ---
Subjective - Date & Time of Evaluation Date of Evaluation: 04/20/17 Time of Evaluation: 12:05 - Subjective Subjective: Comfortable, no fevers, not in distress. Objective - Vital Signs/Intake and Output Vital Signs (last 24 hours): Temp Pulse Resp BP Pulse Ox 97.2 F L 60 18 189/75 H 97 04/19/17 18:13 04/19/17 18:13 04/19/17 18:13 04/19/17 18:13 04/19/17 18:13 Intake and Output: 04/20/17 04/20/17 06:59 18:59 Intake Total 360 Output Total 375 Balance -15 - Medications Medications: Current Medications Acetaminophen (Tylenol 325mg Tab) 650 mg PO Q4H PRN; Protocol PRN Reason: Pain, Mild (1-3) Last Admin: 04/20/17 06:14 Dose: 650 mg Amitriptyline HCl (Elavil) 25 mg PO HS [facility] PRN Reason: Protocol Last Admin: 04/19/17 21:48 Dose: 25 mg Betamethasone/Clotrimazole (Lotrisone) 0 gm TOP DAILY [facility] PRN Reason: Protocol Last Admin: 04/19/17 11:34 Dose: 1 dose Docusate Sodium (Colace) 100 mg PO BID [facility]I PRN Reason: Protocol Last Admin: 04/19/17 17:46 Dose: Not Given Doxazosin Mesylate (Cardura) 2 mg PO HS [facility] Last Admin: 04/19/17 21:48 Dose: 2 mg Doxycycline Hyclate (Doryx) 100 mg PO Q12 NONI PRN Reason: Protocol Stop: 04/20/17 22:01 Last Admin: 04/19/17 21:48 Dose: 100 mg Ferrous Sulfate (Feosol) 324 mg PO BID [facility] Last Admin: 04/19/17 17:48 Dose: 324 mg Gabapentin (Neurontin) 300 mg PO HS [facility] PRN Reason: Protocol Last Admin: 04/19/17 21:48 Dose: 300 mg Guaifenesin (Robitussin) 100 mg PO Q6H PRN; Protocol PRN Reason: Cough Last Admin: 04/17/17 11:24 Dose: 100 mg Insulin Human Regular (Humulin R Low) 0 units SC ACHS [facility]I PRN Reason: Protocol Last Admin: 04/20/17 06:51 Dose: Not Given Lidocaine (Lidoderm) 1 ea TD DAILY [facility] Last Admin: 04/19/17 11:27 Dose: 1 ea Metformin HCl (Glucophage Xr) 750 mg PO DAILY [facility] Last Admin: 04/19/17 11:34 Dose: 750 mg Multivitamins (Thera Tab) 1 tab PO BID [facility] PRN Reason: Protocol Last Admin: 04/19/17 17:48 Dose: 1 tab (Calcium Citrate/Magnesium/D3 [ Calcium Citrate Chewable Wafer] 1 1 tab PO BID [facility] Last Admin: 04/19/17 17:46 Dose: 1 tab Non-Formulary Medication (Carvedilol [Coreg Cr]) 40 mg PO 0800 [facility] Last Admin: 04/20/17 08:33 Dose: 40 mg (Febuxostat [Uloric] (40 Mg)) 40 mg PO DAILY [facility] Last Admin: 04/19/17 11:33 Dose: 40 mg Oxycodone HCl (Oxycodone Immediate Release Tab) 5 mg PO Q6H PRN PRN Reason: Pain, severe (8-10) Last Admin: 04/18/17 17:47 Dose: 5 mg Polyethylene Glycol (Miralax) 17 gm PO BID [facility] PRN Reason: Protocol Last Admin: 04/19/17 17:46 Dose: Not Given Silver Sulfadiazine (Silvadene 1% 25 Gm) 0 gm TP DAILY [facility] PRN Reason: Protocol Last Admin: 04/19/17 11:36 Dose: Not Given Valsartan (Diovan) 320 mg PO DAILY [facility] PRN Reason: Protocol Last Admin: 04/19/17 11:31 Dose: Not Given - Labs Labs: 04/20/17 06:45 04/20/17 06:45 - Constitutional Appears: Non-toxic - Head Exam Head Exam: NORMAL INSPECTION - Respiratory Exam Respiratory Exam: Decreased Breath Sounds - Cardiovascular Exam Cardiovascular Exam: +S1, +S2 - GI/Abdominal Exam GI & Abdominal Exam: Soft. absent: Tenderness Assessment and Plan - Assessment and Plan (Free Text) Plan: Assessment left leg ulcer with associated cellulitis, improving clinically monoclonal gammopathy with undetermined significance DM HTN Plan Continue Doxycycline for another day and will d/c tomorrow
--- NOTE | 2017-04-20 20:56 | PN ---
DATE: 04/20/2017 SUBJECTIVE: The patient is seen, sitting in chair. She is awake. She is alert. She is comfortable. PHYSICAL EXAMINATION: GENERAL: Morbidly obese elderly lady sitting in chair. VITAL SIGNS: Blood pressure 134/58, heart rate 61, respiratory rate 18, and temperature 98. HEENT: Normocephalic and atraumatic. Positive pallor. NECK: Supple. No JVD. LUNGS: Bilateral equal air entry. No rales. CARDIAC: S1 and S2. Regular rate and rhythm. No murmur. No rub. ABDOMEN: Obese, distended, soft, and nontender. Bowel sounds present. EXTREMITIES: Dressing of the lower extremities. LABORATORY DATA: WBC 5.8, hemoglobin 10, hematocrit 30, and platelets 198. Sodium 141, potassium 3.9, chloride 106, CO2 of 27, BUN 31, creatinine 1.4, glucose 144, calcium 9.2, and albumin 3.2. CURRENT MEDICATIONS: Uloric, Cardura, Coreg, Colace, Diovan, doxycycline, Elavil, Feosol, Glucophage, insulin, Lidoderm, MiraLax, Neurontin, and Robitussin. ASSESSMENT: 1. Resolved acute kidney injury. 2. Stable chronic kidney disease stage III. 3. Cellulitis of the lower extremities. 4. Morbid obesity. 5. Apv-leorgsp-xplnjczab diabetes mellitus. 6. Hypertension. PLAN 1. Continue current management. 2. Avoid nephrotoxins. 3. Continue physical therapy. 4. Complete antibiotics. Alyson Bateman MD
[2017-04-21] MEDS: Insulin Reg-LOW-Coverage SC SCH ×2 (06:56→12:16)
[2017-04-21 08:45] LABS: HEMOGLOBIN 9.8 g/dL (12.0-16.0); MEAN CELL VOLUME 90.9 fl (80.0-105.0); MEAN CORPUSCULAR HEMOGLOBIN 29.7 pg (25.0-35.0); MEAN CORPUSCULAR HGB CONC 32.7 g/dl (31.0-37.0); MEAN PLATELET VOLUME 9.1 fl (7.0-11.0); RBC 3.3 10^6/uL (3.5-6.1); RED CELL DISTRIBUTION WIDTH 12.7 % (11.5-14.5)
[2017-04-21 08:55] LABS: ALB/GLOB RATIO 1.5 (1.1-1.8); ALBUMIN 3.5 g/dL (3.0-4.8); CALCIUM 9.6 mg/dL (8.4-10.5)
[2017-04-21] MEDS: Non Formulary Medication (Carvedilol [Coreg Cr] 40 MG) PO SCH (08:57)
[2017-04-21] MEDS: Lidocaine 5% Patch TD SCH (09:16)
[2017-04-21] MEDS: Clotrimazole/Betamethasone Cream(15 gm) TOP SCH (09:16)
[2017-04-21] MEDS: POLYETHYLENE GLYCOL 3350 17 GM/Dose PACKET PO SCH (09:16)
[2017-04-21] MEDS: Multivitamin Therapeutic Tab PO SCH (09:17)
[2017-04-21] MEDS: Silver Sulfadiazine 1% Cream (25 gm) TP SCH (09:17)
[2017-04-21] MEDS: D3 PO SCH (09:58)
[2017-04-21] MEDS: CALCIUM CITRATE PO SCH (09:58)
[2017-04-21] MEDS: MAGNESIUM PO SCH (09:58)
--- NOTE | 2017-04-21 11:23 | CP.PCM.PN ---
<Cait Weinberg - Last Filed: 04/21/17 11:25> Subjective - Date & Time of Evaluation Date of Evaluation: 04/21/17 Time of Evaluation: 11:22 - Subjective Subjective: 76 y/o female seen at bedside today for right leg superficial ulceration and bilateral leg swelling with venous stasis dermatitis skin changes. Pt is resting comfortably in bedside chair with MIKAELA bandage wraps in place to both lower extremities. She denies any pain in the legs. States she will likely be discharged home today. Denies F/C/N/V/CP/SOB Objective - Vital Signs/Intake and Output Vital Signs (last 24 hours): Temp Pulse Resp BP Pulse Ox 98.6 F 64 16 156/60 H 97 04/20/17 10:00 04/20/17 10:00 04/20/17 10:00 04/20/17 10:00 04/19/17 18:13 Intake and Output: 04/21/17 04/21/17 06:59 18:59 Intake Total 80 Balance 80 - Medications Medications: Current Medications Acetaminophen (Tylenol 325mg Tab) 650 mg PO Q4H PRN; Protocol PRN Reason: Pain, Mild (1-3) Last Admin: 04/21/17 06:44 Dose: 650 mg Amitriptyline HCl (Elavil) 25 mg PO HS NONI PRN Reason: Protocol Last Admin: 04/20/17 21:32 Dose: 25 mg Betamethasone/Clotrimazole (Lotrisone) 0 gm TOP DAILY NONI PRN Reason: Protocol Last Admin: 04/21/17 09:16 Dose: 1 dose Docusate Sodium (Colace) 100 mg PO BID NONI PRN Reason: Protocol Last Admin: 04/21/17 09:14 Dose: 100 mg Doxazosin Mesylate (Cardura) 2 mg PO HS NONI Last Admin: 04/20/17 21:32 Dose: 2 mg Ferrous Sulfate (Feosol) 324 mg PO BID NONI Last Admin: 04/21/17 09:16 Dose: 324 mg Gabapentin (Neurontin) 300 mg PO HS NONI PRN Reason: Protocol Last Admin: 04/20/17 21:32 Dose: 300 mg Guaifenesin (Robitussin) 100 mg PO Q6H PRN; Protocol PRN Reason: Cough Last Admin: 04/17/17 11:24 Dose: 100 mg Insulin Human Regular (Humulin R Low) 0 units SC ACHS [facility] PRN Reason: Protocol Last Admin: 04/21/17 06:56 Dose: Not Given Lidocaine (Lidoderm) 1 ea TD DAILY [facility] Last Admin: 04/21/17 09:16 Dose: 1 ea Metformin HCl (Glucophage Xr) 750 mg PO DAILY [facility] Last Admin: 04/21/17 09:16 Dose: 750 mg Multivitamins (Thera Tab) 1 tab PO BID [facility] PRN Reason: Protocol Last Admin: 04/21/17 09:17 Dose: 1 tab (Calcium Citrate/Magnesium/D3 [ Calcium Citrate Chewable Wafer] 1 1 tab PO BID [facility] Last Admin: 04/21/17 09:58 Dose: 1 tab Non-Formulary Medication (Carvedilol [Coreg Cr]) 40 mg PO 0800 [facility] Last Admin: 04/21/17 08:57 Dose: 40 mg (Febuxostat [Uloric] (40 Mg)) 40 mg PO DAILY [facility] Last Admin: 04/21/17 09:15 Dose: 40 mg Oxycodone HCl (Oxycodone Immediate Release Tab) 5 mg PO Q6H PRN PRN Reason: Pain, severe (8-10) Last Admin: 04/20/17 18:27 Dose: 5 mg Polyethylene Glycol (Miralax) 17 gm PO BID [facility] PRN Reason: Protocol Last Admin: 04/21/17 09:16 Dose: 17 gm Silver Sulfadiazine (Silvadene 1% 25 Gm) 0 gm TP DAILY [facility] PRN Reason: Protocol Last Admin: 04/21/17 09:17 Dose: 1 gm Valsartan (Diovan) 320 mg PO DAILY [facility] PRN Reason: Protocol Last Admin: 04/21/17 09:15 Dose: 320 mg - Labs Labs: 04/21/17 08:30 04/21/17 08:30 - Constitutional Appears: Well, Non-toxic, No Acute Distress - Extremities Exam Additional comments: Lower extremity focused exam: Vasc: DP and PT non-palpable secondary to edema B/L, skin temperature warm to cool from proximal to distal B/L. CFT < 3 seconds. +2 pitting edema noted to LE B/L, improving since admission Ortho: no pain on palpation to the LE Neuro: gross and protective sensation diminished Derm: Left leg lateral aspect superficial ulceration fully healed at this time. Superficial ulceration noted to posterior right leg with granular base, no probe to bone, no tunneling, no malodor, no fluctuance. Improving since admission with signs of epithelialization noted. Mild erythematous changes noted to bilateral LE (resolving), most likely secondary to venous stasis dermatitis. - Neurological Exam Neurological Exam: Alert, Awake, Oriented x3 - Psychiatric Exam Psychiatric exam: Normal Affect, Normal Mood Assessment and Plan - Assessment and Plan (Free Text) Assessment: 76 y/o female seen at bedside for bilateral venous stasis dermatitis to her LE and superficial ulceration to right posterior leg Plan: Patient seen and evaluated at bedside Discussed plan with attending Dr. Metz Labs and vitals reviewed- afebrile, WBC 7.0 Wound cx final of left leg shows no growth LE US B/L: No evidence of DVT Tib/fib xray: Normal radiograph Right leg superficial ulceration cleansed with saline and dressed with Optifoam Lotrisone applied to venous stasis dermatitis changes Advise completion of abx as per ID MIKAELA bandages applied in venous wrap fashion for compression therapy - to be removed at night and reapplied in AM daily Podiatry will continue to follow while patient in house Upon discharge, patient to follow up in wound care center with Dr. Tomas <Jorge Metz - Last Filed: 04/21/17 11:37> Objective - Vital Signs/Intake and Output Vital Signs (last 24 hours): Temp Pulse Resp BP Pulse Ox 98.6 F 64 16 156/60 H 97 04/20/17 10:00 04/20/17 10:00 04/20/17 10:00 04/20/17 10:00 04/19/17 18:13 Intake and Output: 04/21/17 04/21/17 06:59 18:59 Intake Total 80 Balance 80 - Medications Medications: Current Medications Acetaminophen (Tylenol 325mg Tab) 650 mg PO Q4H PRN; Protocol PRN Reason: Pain, Mild (1-3) Last Admin: 04/21/17 06:44 Dose: 650 mg Amitriptyline HCl (Elavil) 25 mg PO HS NONI PRN Reason: Protocol Last Admin: 04/20/17 21:32 Dose: 25 mg Betamethasone/Clotrimazole (Lotrisone) 0 gm TOP DAILY NONI PRN Reason: Protocol Last Admin: 04/21/17 09:16 Dose: 1 dose Docusate Sodium (Colace) 100 mg PO BID [facility] PRN Reason: Protocol Last Admin: 04/21/17 09:14 Dose: 100 mg Doxazosin Mesylate (Cardura) 2 mg PO HS [facility] Last Admin: 04/20/17 21:32 Dose: 2 mg Ferrous Sulfate (Feosol) 324 mg PO BID [facility] Last Admin: 04/21/17 09:16 Dose: 324 mg Gabapentin (Neurontin) 300 mg PO HS [facility] PRN Reason: Protocol Last Admin: 04/20/17 21:32 Dose: 300 mg Guaifenesin (Robitussin) 100 mg PO Q6H PRN; Protocol PRN Reason: Cough Last Admin: 04/17/17 11:24 Dose: 100 mg Insulin Human Regular (Humulin R Low) 0 units SC [facility] PRN Reason: Protocol Last Admin: 04/21/17 06:56 Dose: Not Given Lidocaine (Lidoderm) 1 ea TD DAILY [facility] Last Admin: 04/21/17 09:16 Dose: 1 ea Metformin HCl (Glucophage Xr) 750 mg PO DAILY [facility] Last Admin: 04/21/17 09:16 Dose: 750 mg Multivitamins (Thera Tab) 1 tab PO BID [facility] PRN Reason: Protocol Last Admin: 04/21/17 09:17 Dose: 1 tab (Calcium Citrate/Magnesium/D3 [ Calcium Citrate Chewable Wafer] 1 1 tab PO BID [facility] Last Admin: 04/21/17 09:58 Dose: 1 tab Non-Formulary Medication (Carvedilol [Coreg Cr]) 40 mg PO 0800 [facility] Last Admin: 04/21/17 08:57 Dose: 40 mg (Febuxostat [Uloric] (40 Mg)) 40 mg PO DAILY [facility] Last Admin: 04/21/17 09:15 Dose: 40 mg Oxycodone HCl (Oxycodone Immediate Release Tab) 5 mg PO Q6H PRN PRN Reason: Pain, severe (8-10) Last Admin: 04/20/17 18:27 Dose: 5 mg Polyethylene Glycol (Miralax) 17 gm PO BID [facility] PRN Reason: Protocol Last Admin: 04/21/17 09:16 Dose: 17 gm Silver Sulfadiazine (Silvadene 1% 25 Gm) 0 gm TP DAILY [facility] PRN Reason: Protocol Last Admin: 04/21/17 09:17 Dose: 1 gm Valsartan (Diovan) 320 mg PO DAILY [facility] PRN Reason: Protocol Last Admin: 04/21/17 09:15 Dose: 320 mg - Labs Labs: 04/21/17 08:30 04/21/17 08:30 Attending/Attestation - Attestation I have personally seen and examined this patient.: Yes I have fully participated in the care of the patient.: Yes I have reviewed all pertinent clinical information, including history, physical exam and plan: Yes
--- NOTE | 2017-04-21 13:45 | CP.PCM.DIS ---
Provider - Provider Date of Admission: 04/14/17 18:25 Attending physician: Clovis Watters MD Primary care physician: Vania Kang MD Consults: ANDREA Anne Podiat[facility] - Lashay Pope Time Spent in preparation of Discharge (in minutes): 45 Diagnosis - Discharge Diagnosis (1) Cellulitis of leg Status: Resolved (2) Acute on chronic renal insufficiency Status: Chronic Hospital Course - Lab Results Lab Results: Most Recent Lab Values WBC 7.0 10^3/ul (4.5-11.0) D 04/21/17 08:30 RBC 3.30 10^6/uL (3.5-6.1) L 04/21/17 08:30 Hgb 9.8 g/dL (12.0-16.0) L 04/21/17 08:30 Hct 30.0 % (36.0-48.0) L 04/21/17 08:30 MCV 90.9 fl (80.0-105.0) 04/21/17 08:30 MCH 29.7 pg (25.0-35.0) 04/21/17 08:30 MCHC 32.7 g/dl (31.0-37.0) 04/21/17 08:30 RDW 12.7 % (11.5-14.5) 04/21/17 08:30 Plt Count 194 10^3/uL (120.0-450.0) 04/21/17 08:30 MPV 9.1 fl (7.0-11.0) 04/21/17 08:30 Gran % 56.7 % (50.0-68.0) 04/20/17 06:45 Lymph % (Auto) 31.8 % (22.0-35.0) 04/20/17 06:45 [place] % (Auto) 8.2 % (1.0-6.0) H 04/20/17 06:45 Eos % (Auto) 3.0 % (1.5-5.0) 04/20/17 06:45 Baso % (Auto) 0.3 % (0.0-3.0) 04/20/17 06:45 Gran # 3.27 (1.4-6.5) 04/20/17 06:45 Lymph # 1.8 (1.2-3.4) 04/20/17 06:45 [place] # 0.5 (0.1-0.6) 04/20/17 06:45 Eos # 0.2 (0.0-0.7) 04/20/17 06:45 Baso # 0.02 K/mm3 (0.0-2.0) 04/20/17 06:45 Sodium 141 mmol/L (132-148) 04/21/17 08:30 Potassium 3.9 mmol/L (3.6-5.0) 04/21/17 08:30 Chloride 106 mmol/L (98-107) 04/21/17 08:30 Carbon Dioxide 27 mmol/L (21-33) 04/21/17 08:30 Anion Gap 13 (10-20) 04/21/17 08:30 BUN 30 mg/dL (7-21) H 04/21/17 08:30 Creatinine 1.5 mg/dl (0.7-1.2) H 04/21/17 08:30 Est GFR ( Amer) 41 04/21/17 08:30 Est GFR (Non-Af Amer) 34 04/21/17 08:30 POC Glucose (mg/dL) 120 mg/dL (65-110) H 04/21/17 05:44 Random Glucose 203 mg/dL (70-110) H 04/21/17 08:30 Calcium 9.6 mg/dL (8.4-10.5) 04/21/17 08:30 Total Bilirubin 0.3 mg/dL (0.2-1.3) 04/21/17 08:30 AST 30 U/L (14-36) 04/21/17 08:30 ALT 21 U/L (7-56) 04/21/17 08:30 Alkaline Phosphatase 66 U/L (38-126) 04/21/17 08:30 Total Protein 5.9 g/dL (5.8-8.3) 04/21/17 08:30 Albumin 3.5 g/dL (3.0-4.8) 04/21/17 08:30 Globulin 2.4 gm/dL 04/21/17 08:30 Albumin/Globulin Ratio 1.5 (1.1-1.8) 04/21/17 08:30 - Hospital Course Hospital Course: 76 y/o woman with past medical history of anemia, MGUS, DM, HTN, CKD, and lower back pain presenting with RLE cellulitis and deconditioning. Patient was previously on IV Merrem and Zyvox, but finished course of antiobiotics with Doxycycline. Patient with improved swelling and erythema in lower extremities. Patient with chronic kidney disease, with stable creatinine. Patient will be discharged home with services. Patient will also follow up with wound care and Dr. Jayson Anne. Patient has been given exercises to perform at home by physical therapy. Patient will go home and continue her current medical regimen. Patient to follow up in office with Dr. Littlejohn. Discharge Exam - Head Exam Head Exam: ATRAUMATIC, NORMAL INSPECTION, NORMOCEPHALIC - ENT Exam ENT Exam: Mucous Membranes Moist - Respiratory Exam Respiratory Exam: NORMAL BREATHING PATTERN, UNREMARKABLE - Cardiovascular Exam Cardiovascular Exam: RRR, +S1, +S2 - GI/Abdominal Exam GI & Abdominal Exam: Normal Bowel Sounds, Soft. absent: Tenderness - Extremities Exam Extremities exam: pedal edema (At baseline, +1) - Neurological Exam Neurological exam: Alert, CN II-XII Intact, Oriented x3 - Psychiatric Exam Psychiatric exam: Normal Affect, Normal Mood - Skin Skin Exam: Dry, Erythema (Very mild, improved from previously), Intact Discharge Plan - Follow Up Plan Condition: GOOD Disposition: HOME/ ROUTINE Instructions: Cellulitis (DC), Diabetes Mellitus Type 2 in Adults (DC), Obesity (DC), Hypertensive Crisis (DC), Anemia (DC), Back Pain (GEN) Referrals: Vania Kang MD [Primary Care Provider] -
--- NOTE | 2017-04-21 19:36 | PN ---
DATE: 04/21/2017 SUBJECTIVE: The patient is seen sitting in chair. She is awake, she is alert and she is comfortable. PHYSICAL EXAMINATION GENERAL: Morbidly obese elderly lady sitting in chair. VITAL SIGNS: Blood pressure was 156/60, heart rate 64, respiratory rate 16 and temperature 98.6. HEENT: Normocephalic and atraumatic. NECK: Supple, no JVD. LUNGS: Bilateral equal entry, rales. CARDIAC: S1 and S2, regular rate and rhythm, no murmur, no rub. ABDOMEN: Obese, distended, soft, nontender, bowel sounds present. EXTREMITIES: No lower extremity edema. LABORATORY DATA: WBC 7, hemoglobin 9.8, hematocrit 30 and platelets 194. Sodium 141, potassium 3.9, chloride 106, CO2 of 27, BUN 30, creatinine 1.5, glucose 203, calcium 9.6, AST 30, ALT 21 and albumin 3.5. CURRENT MEDICATIONS: Uloric, Cardura 2 mg, Coreg 40, Colace 100, Diovan 320, Elavil 25, Feosol 324 b.i.d., metformin 750, gabapentin, oxycodone, Robitussin and Silvadene. ASSESSMENT: 1. Cellulitis, resolving. 2. Acute kidney injury, resolved. 3. Underlying chronic kidney disease stage 3, stable. 4. Noninsulin-dependent diabetes mellitus. 5. Hypertension. 6. Morbid obesity. PLAN: 1. The patient has completed the course of antibiotics. 2. Continue metformin 750 daily. 3. Continue current antihypertensive regimen. 4. No objection to discharge. Alyson Bateman MD
--- NOTE | 2017-04-22 00:55 | PN ---
DATE: 04/21/2017 SUBJECTIVE: The patient is in bed, in no acute distress, nontoxic. PHYSICAL EXAMINATION: VITAL SIGNS: Temperature is 98, blood pressure 150/60 and respiratory rate of 18. HEENT: Unremarkable. NECK: Supple. LUNGS: Have decreased breath sounds. HEART: Normal S1 and S2. ABDOMEN: Soft and nontender. LABORATORY DATA: Revealed a white count of 7000, BUN of 30, creatinine of 1.5. ASSESSMENT AND PLAN: This is a 76-year-old with a left leg ulcer associated with cellulitis, and hypertension much improved. The patient completed doxycycline therapy with her discharge today. Rinku Yoon MD
== END 2017-04-21 16:54 | disposition home or self-care (01) | DRG 945 ==
LOC: TRCU 18:25
PROVIDERS: ADMIT Family Medicine; ATTEND Family Medicine
PROC: F07Z9FZ Gait Training/Functional Ambulation Treatment using Assistive, Adaptive, Supportive or Protective Equipment (ICD-10-PCS; principal; 2017-04-15)
PROC: F08Z4FZ Home Management Treatment using Assistive, Adaptive, Supportive or Protective Equipment (ICD-10-PCS; 2017-04-16)
DX: R53.1 Weakness (principal); L03.115 Cellulitis of right lower limb; N17.9 Acute kidney failure, unspecified; E11.22 Type 2 diabetes mellitus with diabetic chronic kidney disease; D47.2 Monoclonal gammopathy; E11.42 Type 2 diabetes mellitus with diabetic polyneuropathy; E11.319 Type 2 diabetes mellitus with unspecified diabetic retinopathy without macular edema; L97.929 Non-pressure chronic ulcer of unspecified part of left lower leg with unspecified severity; Z68.42 Body mass index [BMI] 45.0-49.9, adult; L03.116 Cellulitis of left lower limb; I87.2 Venous insufficiency (chronic) (peripheral); E11.622 Type 2 diabetes mellitus with other skin ulcer; E66.01 Morbid (severe) obesity due to excess calories; N18.3 Chronic kidney disease, stage 3 (moderate); I12.9 Hypertensive chronic kidney disease with stage 1 through stage 4 chronic kidney disease, or unspecified chronic kidney disease; E78.00 Pure hypercholesterolemia, unspecified; G89.29 Other chronic pain; M54.5 Low back pain; D63.8 Anemia in other chronic diseases classified elsewhere; D50.9 Iron deficiency anemia, unspecified; Z79.84 Long term (current) use of oral hypoglycemic drugs; Z98.84 Bariatric surgery status; Z88.0 Allergy status to penicillin